=== PATIENT | female | born 1945 | race Caucasian/White ===

== ENCOUNTER 2017-12-07 10:13 | Inpatient (IN) | payer MEDICARE ==
--- OUTSIDE RECORDS SUMMARY | 2017-12-07 10:15 | XMS REPORT ---
:1945 [facility] Address [address] [place] [address] Care Team Providers Name Role Phone DR JAMES DOUGLAS Unavailable Unavailable Problems This patient has no known problems. Allergies, Adverse Reactions, Alerts This patient has no known allergies or adverse reactions. Medications This patient has no known medications. Encounters Start End Encounter Admission Attending Care Care Encounter Date/Time Date/Time Type Type Clinicians Facility Department ID 2017-12-01 2017-12-01 Emergency E [facility] [id number] 15:37:00 17:48:00 JAMES Results Test Description Test Time Test Comments Text Results Atomic Results Result Comments CT ABDOMEN AND PELVIS 2017-12-01 17:07:47 CT abdomen and pelvis without W/O CONTRAST contrastLocation Code: [id number] HISTORY: R10.2: PELVIC AND PERINEAL PAINCOMPARISON: NoneTechnique: Helical CT of the abdomen and pelvis was performed without contrast.Thin section axial, sagittal and coronal images were obtained. Automaticexposure control was utilized. Total DLP: 778 mGycmFINDINGS:The lung bases are clear. The liver, gallbladder, adrenal glands, kidneys, pancreas, and spleen areunremarkable.Surgical anastomosis is noted at the gastroesophageal junction. There is mildthickening of multiple loops of mid small bowel with mild adjacent mesentericinflammation. There is no fluid collection or free air. There is no boweldilatation. Surgical anastomosis is noted within the proximal small bowelwithin the left upper quadrant. There is no free peritoneal air or fluid. Mild calcified atherosclerotic plaque is scattered throughout the abdominalaorta without aneurysm. There is no retroperitoneal mass or fluid collection.The urinary bladder is unremarkable. There is no pelvic mass or fluidcollection. Uterus is absent.Degenerative changes are noted throughout the spine. The skin and strandingsoft tissues are unremarkable.IMPRESSION: Mild apparent thickening and inflammation of multiple loops of mid small bowelsuggesting enteritis. There is mild adjacent mesenteric inflammation withoutfluid collection or free air. PRO TIME AND PTT 2017-12-01 16:59:00 Test Item Value Reference Range Comments PT (test code=TT) 10.9 s 9.8-13.6 INR (test code=INR) 1.0 INRH (test code=INRH) SUGGESTED THERAPEUTIC RANGE FOR INR: 2.5 - 3.5 For Patients with Prosthetic Valves or Patients with recurrent Thromboembolic Events 2.0 - 3.0 For Most Other Applications PTT (test code=PTT) 34.3 s 20.2-38.0 PTTH (test code=PTTH) To monitor the effectiveness of heparin, we offer the Anti-Xa (Heparin Assay). It can be used for either unfractionated or LMW Heparin. Order Code is ANTI-XA COMPREHENSIVE METABOLIC [id number] 16:59:00 Test Item Value Reference Range Comments GLUCOSE (test code=06D) 100 mg/dL 75-100 SODIUM (test code=01A) 140 mmol/L 136-145 POTASSIUM (test code=01B) 4.3 mmol/L 3.6-5.1 CHLORIDE (test code=04A) 105 mmol/L 98-107 CO2 (test code=02A) 31 mmol/L 22-32 ANION GAP (test code=ANG) 8.3 mmol/L BUN (test code=05D) 21 mg/dL 7-18 CREATININE (test code=03E) 0.7 mg/dL 0.4-1.1 BUN/CREA (test code=BCR) 30 12-20 CALCIUM (test code=09D) 8.7 mg/dL 8.3-9.5 BILI TOTAL (test code=11A) 0.3 mg/dL 0.2-1.0 PROTEIN (test code=07D) 6.4 g/dL 6.4-8.2 ALBUMIN (test code=08D) 3.4 g/dL 3.5-4.8 GLOBULIN (test code=GLB) 3.0 g/dL 1.5-3.8 ALB/GLOB (test code=AGRR) 1.1 1.0-2.6 ALK PHOS (test code=35A) 112 IU/L 42-121 AST (test code=30A) 34 IU/L <=42 ALT (test code=31A) 31 IU/L <=78 XR FEMUR LEFT AP & [id number] 16:58:20Left femur, 4 viewsLocation Code: [id number] history: R10.2: PELVIC AND PERINEAL PAINComment: AP andlateral views of the left femur demonstrate no displacedfracture or malalignment. Left total knee arthroplasty is intact. The softtissues are unremarkable.Impression: No acute radiographic abnormality.[id number] 16:46:00 Test Item Value Reference Range Comments COLOR (test code=COLU) YELLOW YELLOW CLARITY (test code=CLA) CLEAR CLEAR GLUCOSE UR (test code=UA GLUCOSE) NEGATIVE NEGATIVE BILI UR (test code=BILE) NEGATIVE NEGATIVE KETONES UR (test code=OLIMPIA) NEGATIVE NEGATIVE SP GRAVITY (test code=SPGR) 1.009 1.005-1.030 PH UR (test code=PH) 6.5 4.5-8.0 PROTEIN UR (test code=PU) NEGATIVE NEGATIVE UROBIL UR (test code=UROQ) 0.2 EU/dL 0.2-1.0 NITRITE UR (test code=NITRITE) NEGATIVE NEGATIVE BLOOD UR (test code=UA BLOOD) NEGATIVE NEGATIVE LEUK ES UR (test code=LEUK) NEGATIVE NEGATIVE CBC (INCLUDES AUTOMATED DIFFERENTIAL)2017-12-01 16:44:00 Test Item Value Reference Range Comments WBC (test code=WBC) 8.6 10\S\3/uL 4.5-11.0 RBC (test code=RBC) 4.05 10\S\6/uL 3.80-5.80 HGB (test code=HBG) 12.6 g/dL 12.0-15.5 HCT (test code=HCT) 38.9 % 35.0-44.0 MCV (test code=MCV) 96.0 fL 81.0-99.0 MCH (test code=MCH) 31.1 pg 27.0-31.0 MCHC (test code=MCHC) 32.4 g/dL 32.0-36.0 RDW (test code=RDW) 13.1 % 11.5-14.5 PLT (test code=PLT) 167 10\S\3/uL 130-400 MPV (test code=MPV) 12.0 fL 9.4-12.4 NEUTROP # (test code=NE#) 5.9 10\S\3/uL 1.6-8.0 LYMPH # (test code=LY#) 1.9 10\S\3/uL 1.1-3.5 MONOCYTE # (test code=MO#) 0.7 10\S\3/uL 0.0-1.1 EOSINOPH # (test code=EO#) 0.1 10\S\3/uL 0.0-0.7 BASOPHIL # (test code=BA#) 0.0 10\S\3/uL 0.0-0.3 IG # (test code=IG#) 0.06 10\S\3/uL 0.00-0.06 NRBC # (test code=NRBC#) 0.00 10\S\3/uL 0.00-0.01 NEUTROPH % (test code=NE%) 68.1 % 35.0-73.0 LYMPH % (test code=LY%) 21.9 % 20.0-55.0 MONO % (test code=MO%) 7.6 % 2.5-10.0 EOSINOPH % (test code=EO%) 1.2 % 0.0-5.0 BASOPHIL % (test code=BA%) 0.5 % 0.0-2.0 IG % (test code=IG%) 0.7 % 0.0-0.8 NRBC% (test code=NRBC%) 0.0 % 0.0-0.2 MANDIFF (test code=MDIFF) NO NO RBC MORPH (test code=RBCMOR) NORMAL
--- NOTE | 2017-12-07 11:44 | RAD REPORT ---
EXAM DESCRIPTION: RAD - Hip Left 2 View - 12/07/2017 11:29 am CLINICAL HISTORY: Fall, left hip pain COMPARISON: None. FINDINGS: Lucency is seen in the intratrochanteric fracture of the left hip. No dislocation is seen. No aggressive marrow pattern. IMPRESSION: Nondisplaced left IT fracture.
--- NOTE | 2017-12-07 11:57 | RAD REPORT ---
EXAM DESCRIPTION: RAD - Pelvis - 12/07/2017 11:49 am CLINICAL HISTORY: Fall, left hip pain COMPARISON: None. FINDINGS: AP pelvis and left femur, multiple projections. Lucency is seen in the intratrochanteric region of proximal left femur, compatible with nondisplaced fracture. Left total knee arthroplasty is seen. No aggressive marrow lesion. No knee joint effusion. IMPRESSION: Left proximal femur IT fracture.
--- NOTE | 2017-12-07 12:21 | RAD REPORT ---
EXAM DESCRIPTION: RAD - Lumbar Spine 3 Views - 12/07/2017 11:49 am CLINICAL HISTORY: Back pain FINDINGS: The alignment of the lumbar spine is satisfactory. A mild compression fracture involves the L3 vertebral body. This has developed since 2011. If the pat ient has clinical symptoms to suggest this is acute then MRI would be recommended. The bones are osteoporotic. Mild spondylosis is present.
[2017-12-07] MEDS ORDERED: FENTANYL CITR 100 MCG/2 ML ONE (12:27)
[2017-12-07] MEDS ORDERED: ONDANSETRON 4 MG/2 ML VIAL ONE (12:27)
--- NOTE | 2017-12-07 12:42 | EDPHYS ---
Physician Documentation [facility] Name: Germaine Amador Age: 72 yrs Sex: Female : 1945 Arrival Date: 12/07/2017 Time: 10:17 Bed 15 Private MD: Brandon Rubalcava C ED Physician Marquise Chung HPI: 12/07 10:43 This 72 yrs old Female presents to ER via Ambulatory with complaints of Fall cp Injury. 10:43 Details of fall: The patient fell from an upright position, while walking. Onset: The cp symptoms/episode began/occurred 6 day(s) ago. Associated injuries: The patient sustained low back and left hip. 10:43 Patient reports she was seen at [facility] after fall and had xrays done cp that were negative for fracture. Historical: - Allergies: 10:26 Aminophylline; hj 10:26 Cipro IV; hj 10:26 Iodinated Contrast Media - IV Dye; hj 10:26 Vicodin; hj 10:26 Warfarin; hj - Home Meds: 10:26 escitalopram oxalate 5 mg Oral tab 1 tab once daily [Active]; Estroven 155 mg Oral cap hj daily [Active]; gabapentin 300 mg Oral cap 1 cap daily [Active]; hydroxyzine HCl 20mg Oral tab 2 tabs 4 times per day [Active]; levothyroxine 25 mcg tab 1 tab once daily [Active]; niacin 500 mg Oral cpER 1 caps once daily [Active]; Pepcid Oral [Active]; tramadol 50 mg Oral tab 1 tab BID PRN [Active]; Xarelto 20 mg Oral tab 1 tab once daily [Active]; - PMHx: 10:26 Alcoholism; Chronic pain; EDEMA; Hypertension; Rheumatoid Arthritis; Sleep Apnea; hj - PSHx: 10:26 Cholecystectomy; Knee surgery; Gastric Bypass; corneal transplant x5; hj - Immunization history:: Adult Immunizations up to date. - Social history:: Smoking status: Patient/guardian denies using tobacco, Patient/guardian denies using alcohol. ROS: 10:50 Constitutional: Negative for body aches, chills, fever, poor PO intake. cp 10:50 Eyes: Negative for injury, pain, redness, and discharge. cp Exam: 11:00 Constitutional: The patient appears in no acute distress, alert, awake, cp non-diaphoretic, non-toxic, well developed, well nourished. 11:00 Head/Face: Normocephalic, atraumatic. cp 11:00 Eyes: Periorbital structures: appear normal, Pupils: equal, round, and reactive to light and accomodation, Extraocular movements: intact throughout, Conjunctiva: normal, no exudate, no injection, Sclera: no appreciated abnormality, Lids and lashes: appear normal, bilaterally. 11:00 ENT: External ear(s): are unremarkable, Ear canal(s): are normal, clear, TM's: bulging, is not appreciated, bilaterally, dullness, bilaterally, erythema, is not appreciated, bilaterally, Nose: is normal, Mouth: Lips: moist, Oral mucosa: moist, Posterior pharynx: is normal, airway is patent, no erythema, no exudate, Voice: is normal. 11:00 Neck: ROM/movement: is normal, is supple, without pain, no range of motions limitations, no nuchal rigidity. 11:00 Chest/axilla: Inspection: normal, Palpation: is normal, no crepitus, no tenderness. 11:00 Cardiovascular: Rate: normal, Rhythm: regular, Edema: is not appreciated, JVD: is not appreciated. 11:00 Respiratory: the patient does not display signs of respiratory distress, Respirations: normal, no use of accessory muscles, no retractions, no splinting, no tachypnea, labored breathing, is not present, Breath sounds: are clear throughout, no decreased breath sounds, no stridor, no wheezing. 11:00 Abdomen/GI: Inspection: abdomen appears normal, Bowel sounds: active, all quadrants, Palpation: abdomen is soft and non-tender, in all quadrants. 11:00 Back: pain, that is severe, of the lumbar area, ROM is painful, with all movement. 11:00 Musculoskeletal/extremity: Extremities: grossly normal except: noted in the left hip: decreased ROM, pain, There is no evidence of deformity, Pulses: noted to be 2+ in the right radial artery, right dorsalis pedis artery, left radial artery and left dorsalis pedis artery, Sensation intact. 11:00 Skin: cellulitis, is not appreciated, no rash present. 11:00 Neuro: Orientation: to person, place \T\ time. Mentation: is normal, Cerebellar function: is grossly normal, Motor: moves all fours, strength is normal, Sensation: no obvious gross deficits. 12:57 ECG was reviewed by the Attending Physician. Vital Signs: 10:26 BP 134 / 94; Pulse 89; Resp 18; Temp 97.2(TE); Pulse Ox 99% on R/A; Weight 68.04 kg; hj Height 5 ft. 4 in. (162.56 cm); Pain 7/10; 12:19 BP 163 / 76; Pulse 75; Resp 18; Pulse Ox 95% on R/A; wh 13:00 BP 145 / 82; Pulse 58; Resp 17; Pulse Ox 97% on R/A; wh 14:24 BP 146 / 76; Pulse 78; Resp 18; Pulse Ox 99% on R/A; wh 10:26 Body Mass Index 25.75 (68.04 kg, 162.56 cm) hj MDM: 10:31 Patient medically screened. 12:30 Data reviewed: vital signs, nurses notes, radiologic studies, plain films, and as a cp result, I will admit patient. 12:45 Physician consultation: A Gini ROJAS was called at 12:45, was contacted at 12:45, regarding admission, to the medical/surgical unit. patient's condition. 12/07 11:06 Order name: CBC with Diff; Complete Time: 14:11 cp 12/07 14:11 Interpretation: Normal except: MCV 93.9; HAL% 76.4; LYM% 14.0. cp 12/07 11:06 Order name: BMP; Complete Time: 14:11 cp 12/07 14:11 Interpretation: Normal except: GFR 89. cp 12/07 11:06 Order name: Urine Microscopic Only; Complete Time: 14:11 cp 12/07 14:11 Interpretation: Normal except: SQEPI 5-10. cp 12/07 11:06 Order name: PT-INR; Complete Time: 14:11 cp 12/07 11:06 Order name: Ptt, Activated; Complete Time: 14:11 cp / 13:09 Order name: Urine Dipstick--Ancillary (enter results) ag 12/07 10:42 Order name: XRAY Hip LEFT 2 view; Complete Time: 11:51 cp 12/07 10:42 Order name: XRAY Lumbar Spine (3 Views); Complete Time: 12:30 cp 12/07 10:42 Order name: XRAY Pelvis; Complete Time: 11:59 cp 12/07 11:06 Order name: XRAY Femur LEFT cp 12/07 15:07 Order name: Urine Dipstick-Ancillary EDMS 12/07 11:06 Order name: Urine Dipstick-Ancillary (obtain specimen); Complete Time: 13:09 cp 12/07 11:06 Order name: IV; Complete Time: 12:12 cp 12/07 12:37 Order name: EKG; Complete Time: 12:37 cp 12/07 12:37 Order name: EKG - Nurse/Tech; Complete Time: 12:52 cp 12/07 13:03 Order name: CONS Physician Consult EDMS EC:57 Rate is 76 beats/min. Rhythm is irregularly irregular. QRS interval is normal. QT cp interval is normal. No ST changes noted. Interpreted by me. Reviewed by me. Administered Medications: 12:11 Drug: Zofran 4 mg Route: IVP; Site: right antecubital; 12:52 Follow up: Response: No adverse reaction 12:11 Drug: fentaNYL (PF) 25 mcg Route: IVP; Site: right antecubital; 12:52 Follow up: Response: No adverse reaction Disposition: 16:16 Co-signature as Attending Physician, Marquise Chung MD I agree with the assessment and [facility] plan of care. Disposition: 12/07/17 12:42 Hospitalization ordered by Brandon Rubalcava for Inpatient Admission. Preliminary diagnosis are Intertrochanteric fracture of femur - Left Hip, Fracture of lumbar vertebra - Third, Unspecified atrial fibrillation. - Bed requested for Telemetry/MedSurg (Inpatient). - Status is Inpatient Admission. - Condition is Stable. - Problem is new. - Symptoms have improved. UTI on Admission? No Signatures: Dispatcher [employer] EDMS Marquise Chung MD MD cha Gallardo, Ana ag Joaquin, Henry RN Marquise Rome PA PA cp Fitzgerald, Diane RN Hossein [place] Corrections: (The following items were deleted from the chart) 12:38 12:21 Spine Lumbar Wo Con+CT.RAD.BRZ ordered. EDMS EDMS 12:38 12:21 Pelvis Wo Cont+CT.RAD.BRZ ordered. EDMS EDMS
--- NOTE | 2017-12-07 12:42 | ER ---
Nurse's Notes [facility] Name: Germaine Amador Age: 72 yrs Sex: Female : 1945 Arrival Date: 12/07/2017 Time: 10:17 Bed 15 Private MD: Brandon Rubalcava C Diagnosis: Intertrochanteric fracture of femur-Left Hip;Fracture of lumbar vertebra-Third;Unspecified atrial fibrillation Presentation: 12/07 10:22 Presenting complaint: Patient states: fell and hurt my L hip last Monday at my sons hj house in [place], went to ED and it showed negative results and last Monday, i felt a shooting pain on my L leg; reports pain is getting worse;. Transition of care: patient was not received from another setting of care. Onset of symptoms was December 07, 2017. Care prior to arrival: None. 10:22 Method Of Arrival: Ambulatory 10:22 Acuity: MELLO 4 hj Triage Assessment: 10:26 General: Appears in no apparent distress. uncomfortable, Behavior is calm, cooperative, hj appropriate for age. Pain: Complains of pain in back and left leg. Historical: - Allergies: 10:26 Aminophylline; hj 10:26 Cipro IV; hj 10:26 Iodinated Contrast Media - IV Dye; hj 10:26 Vicodin; hj 10:26 Warfarin; hj - Home Meds: 10:26 escitalopram oxalate 5 mg Oral tab 1 tab once daily [Active]; Estroven 155 mg Oral cap hj daily [Active]; gabapentin 300 mg Oral cap 1 cap daily [Active]; hydroxyzine HCl 20mg Oral tab 2 tabs 4 times per day [Active]; levothyroxine 25 mcg tab 1 tab once daily [Active]; niacin 500 mg Oral cpER 1 caps once daily [Active]; Pepcid Oral [Active]; tramadol 50 mg Oral tab 1 tab BID PRN [Active]; Xarelto 20 mg Oral tab 1 tab once daily [Active]; - PMHx: 10:26 Alcoholism; Chronic pain; EDEMA; Hypertension; Rheumatoid Arthritis; Sleep Apnea; hj - PSHx: 10:26 Cholecystectomy; Knee surgery; Gastric Bypass; corneal transplant x5; hj - Immunization history:: Adult Immunizations up to date. - Social history:: Smoking status: Patient/guardian denies using tobacco, Patient/guardian denies using alcohol. Screenin:00 Abuse screen: Denies threats or abuse. Denies injuries from another. Nutritional hj screening: No deficits noted. Tuberculosis screening: No symptoms or risk factors identified. Fall Risk None identified. Assessment: 12:17 General: Appears in no apparent distress. comfortable, Behavior is calm, cooperative, wh appropriate for age. Pain: Complains of pain in left hip Pain does not radiate. Pain began 2-3 days ago. Alleviated by repositioning. Neuro: Level of Consciousness is awake, alert, obeys commands, Oriented to person, place, time, situation, Pump House Engineer are equal bilaterally. Cardiovascular: Denies chest pain, Heart tones S1 S2 Capillary refill < 3 seconds. Respiratory: Airway is patent Respiratory effort is even, unlabored, Respiratory pattern is regular, symmetrical, Breath sounds are clear bilaterally. GI: Abdomen is flat, non-distended, Abd is soft and non tender. : No signs and/or symptoms were reported regarding the genitourinary system. EENT: No signs and/or symptoms were reported regarding the EENT system. Derm: Skin is intact, Skin is pink, warm \T\ dry. normal. Musculoskeletal: Range of motion: intact in all extremities. 12:29 Reassessment: Accepted lab phone call, recollect for all lab draws. will notify primary ae1 nurse. 13:16 Reassessment: Patient appears in no apparent distress at this time. Patient and/or wh family updated on plan of care and expected duration. Pain level reassessed. Patient is alert, oriented x 3, equal unlabored respirations, skin warm/dry/pink. 14:22 Reassessment: Patient appears in no apparent distress at this time. Patient and/or wh family updated on plan of care and expected duration. Pain level reassessed. Patient is alert, oriented x 3, equal unlabored respirations, skin warm/dry/pink. Patient states feeling better. 15:23 Reassessment: Patient appears in no apparent distress at this time. Patient and/or wh family updated on plan of care and expected duration. Pain level reassessed. Patient is alert, oriented x 3, equal unlabored respirations, skin warm/dry/pink. Patient states feeling better. Vital Signs: 10:26 BP 134 / 94; Pulse 89; Resp 18; Temp 97.2(TE); Pulse Ox 99% on R/A; Weight 68.04 kg; hj Height 5 ft. 4 in. (162.56 cm); Pain 7/10; 12:19 BP 163 / 76; Pulse 75; Resp 18; Pulse Ox 95% on R/A; wh 13:00 BP 145 / 82; Pulse 58; Resp 17; Pulse Ox 97% on R/A; wh 14:24 BP 146 / 76; Pulse 78; Resp 18; Pulse Ox 99% on R/A; wh 10:26 Body Mass Index 25.75 (68.04 kg, 162.56 cm) ED Course: 10:17 Patient arrived in ED. mr 10:17 rBandon Rubalcava MD is Private Physician. mr 10:24 Triage completed. hj 10:26 Arm band placed on right wrist. hj 10:30 [facility] Morrow [facility]. cp 10:31 Marquise Chung MD is Attending Physician. cp 10:49 Wyatt Sigala, SUSAN is Primary Nurse. hj 11:01 Patient has correct armband on for positive identification. Placed in gown. Bed in low hj position. Call light in reach. Side rails up X 1. Adult w/ patient. 11:28 XRAY Hip LEFT 2 view In Process Unspecified. EDMS 11:28 XRAY Lumbar Spine (3 Views) In Process Unspecified. EDMS 11:28 XRAY Pelvis In Process Unspecified. EDMS 11:28 XRAY Femur LEFT In Process Unspecified. EDMS 12:18 Inserted saline lock: 22 gauge in right antecubital area, using aseptic technique. Blood collected. 12:40 Brandon Rubalcava MD is Hospitalizing Provider. cp 12:57 EKG done, by scheme technician. reviewed by Marquise LEON. at1 15:23 No provider procedures requiring assistance completed. Patient admitted, IV remains in place. Administered Medications: 12:11 Drug: Zofran 4 mg Route: IVP; Site: right antecubital; 12:52 Follow up: Response: No adverse reaction 12:11 Drug: fentaNYL (PF) 25 mcg Route: IVP; Site: right antecubital; 12:52 Follow up: Response: No adverse reaction Outcome: 12:42 Decision to Hospitalize by Provider. cp 15:23 Admitted to Med/surg accompanied by nurse, family with patient, via stretcher, room wh 202, with chart, Report called to Bhavna Rosenbaum RN 15:23 Condition: good 15:23 Instructed on the need for admit. 15:24 Patient left the ED. Signatures: Dispatcher [employer] SHAWNAMS Keys Mari medina, [place], combat engineer EKG Tat1 Wyatt Sigala, RN RN hj Marquise Morrow PA PA cp Elliott, Andrea, RN RN ae1 Hossein [place] Corrections: (The following items were deleted from the chart) 10:28 10:26 Pulse 89bpm; Resp 18bpm; Pulse Ox 99% RA; Temp 97.2F Temporal; 68.04 kg; Height 5 hj ft. 4 in.; BMI: 25.7; Pain 7/10; hj
[2017-12-07] MEDS ORDERED: ONDANSETRON 4 MG/2 ML VIAL IV PRN (13:03)
[2017-12-07 13:14] LABS: Absolute Lymphocytes (CBC) 0.9 K/uL (0.7-4.9); Absolute Monocytes 0.5 K/uL (0.1-1.3); Absolute Neutrophil 5.1 K/uL (1.8-8.0); Basophils % 0.5 % (0-1.3); Eosinophils % 1.3 % (0-4.4); Hematocrit 42.8 % (36.0-45.0); MCH 30.8 pg (27.0-35.0); MCV 93.9 fL (80-100); MPV 10.5 fL (7.6-11.3); Monocytes % 7.8 % (3.3-12.3); RBC Red Blood Cell Count 4.56 M/uL (3.86-4.86)
[2017-12-07 13:16] LABS: Protime INR 1.04
--- NOTE | 2017-12-07 13:35 | RAD REPORT ---
EXAM DESCRIPTION: RAD - Femur Left - 12/07/2017 11:29 am CLINICAL HISTORY: Fall, left hip pain COMPARISON: None. FINDINGS: AP pelvis and left femur, multiple projections. Lucency is seen in the intratrochanteric region of proximal left femur, compatible with nondisplaced fracture. Left total knee arthroplasty is seen. No aggressive marrow lesion. No knee joint effusion. IMPRESSION: Left proximal femur IT fracture.
[2017-12-07 13:43] LABS: Urine Bacteria NONE SEEN /HPF (<20); Urine RBC <5 /HPF (NONE SEEN)
[2017-12-07 13:44] LABS: Urine Culture Reflex Order NOT NEEDED
[2017-12-07 13:46] LABS: Potassium 4.7 mEq/L (3.6-5.0)
[2017-12-07 15:07] LABS: Urine Blood NEGATIVE (NEG); Urine Glucose NEGATIVE (NEG); Urine Protein NEGATIVE (NEG); Urine Specific Gravity 1.025 (1.005-1.030); Urine pH 6.5 (5.0-7.0)
[2017-12-07 15:22] VITALS: BMI 25.5
--- NOTE | 2017-12-07 16:40 | EKG ---
Test Date: 2017-12-07 Test Time: 12:51:57 Bunghole Borer: LIANG MEASUREMENT RESULTS: Intervals: Rate: 76 TN: QRSD: 80 QT: 374 QTc: 420 [place]: P: TN: QRS: 33 T: 19 INTERPRETIVE STATEMENTS: Atrial fibrillation Abnormal ECG Compared to ECG 07/25/2017 12:15:44 No significant changes Electronically Signed On 12-07-17 16:39:58 CDT by Frank Alba
[2017-12-07] MEDS: ATORVASTATIN 40 MG TAB PO SCH (20:15)
[2017-12-07] MEDS: VITAMIN D 1000 UNIT TAB PO SCH (20:16)
[2017-12-07] MEDS: GABAPENTIN 300 MG CAP PO SCH (20:16)
[2017-12-07] MEDS: TRAMADOL HCL 50 MG TAB PO SCH (20:17)
[2017-12-07] MEDS ORDERED: HOME MED 1 EA UNK (Gabapentin [Gralise] 600 MG) PO SCH (21:00)
[2017-12-07] MEDS ORDERED: CHOLECALCIFEROL 1000 UNIT PO SCH (21:00)
[2017-12-07] MEDS: MORPHINE 4 MG/ML SYR IV PRN (23:06)
[2017-12-08] MEDS: MORPHINE 4 MG/ML SYR IV PRN ×2 (04:59→17:21)
[2017-12-08] MEDS: LEVOTHYROXINE SOD 0.05 MG TABLET PO SCH (05:52)
--- NOTE | 2017-12-08 06:40 | HP ---
Date of Admission: 12/07/2017 Chief Complaint: Left leg pain. History Of Present Illness: This is a 72-year-old female patient, who contacted my office on 018 with information that while she was out of town this past weekend at her son's house as she was c oming down the steps, she missed last 2 steps on the staircase and fell down. When she fell down, malou pennington fell on her left side. She was taken to local emergency room, where she was out of town and furthe r evaluation done including CAT scan of abdomen and pelvis and x-ray of the hip and blood work. She was told that there was no fracture, no acute changes. She was sent home and she called my office on 12/04/2017, as she requested x-ray of the left knee because she was complaining of pain in her left knee. Her order for knee x-ray was given which was done on 12/05/2017 and today the patient came int o office for followup with her and her knee x-ray came back negative for any acute injury. T salazar, when she came into the office, she was in the wheelchair. Upon further questioning, the patien ruiz reports that she has not been able to stand or walk ever since this fall and she is having excrucia ting pain in her left leg and she describes her pain in the area between left lateral hip and left kn ee, all over her left thigh. Pain gets worse with any movement. No fever. No chills. No nausea or vomiting. After I saw her at the office after I evaluated, I was concerned about possibility of hip fracture, so I instructed her that I would like for her to get evaluated in the emergency room and t he plan was to start with routine x-ray of lumbosacral spine, hip, and femur and if that comes back n egative, then to consider CAT scan. Details were discussed with ER provider and after further testin gs were done, I was contacted. The patient does have fracture of the left hip and she was admitted t o the hospital. Orthopedic consultation has been requested. Allergies: TO CIPRO CAUSING DIFFICULTY BREATHING AND SWELLING OF THE FACE, HYDROCODONE CAUSING HYPOT ENSION, AND IODINE CAUSING TROUBLE BREATHING AND SWALLOWING. Medications: Atorvastatin 40 mg at bedtime, Combigan eye drops 1 drop 2 times every day in both eyes ; escitalopram 10 mg takes 1-1/2 tablet p.o. daily; gabapentin, according to office chart, she is dylon ing 300 mg daily, but according to hospital record the dose is different, then we will have to verify that with her and gabapentin is not prescribed by me. Levothyroxine 25 mcg p.o. daily; Lumigan eye drops, 1 drop both eyes at bedtime; prednisolone acetate eye drops, 1 drop every day in both eyes; tr amadol 50 mg p.o. 3 times a day as needed for pain; vitamin B12 1000 mcg p.o. daily; vitamin D3 1000 mcg p.o. daily. Review of Systems: Musculoskeletal: As mentioned above. All other systems reviewed and negative. Past Medical History: Significant for hypothyroidism, impaired fasting glucose, coronary artery dise ase, hyperlipidemia, paroxysmal atrial fibrillation, depression, hypertension. The patient had a car diac cath done on 07/21/2017, showed normal coronaries, except 20% plaquing of left main. The patien t was on Xarelto which she had reported was discontinued by subway train operator when I saw her in October this year. Past Surgical History: Significant for cornea transplant, gastric bypass surgery in 2013, cystocele/ rectocele repair, knee replacement, rotator cuff repair, surgery on her spine due to injury, hernia r epair, cholecystectomy, hysterectomy. Family History: Significant for coronary artery disease, hypertension, congestive heart failure, berlin betes mellitus. Social History: Negative for smoking or alcohol use. Physical Examination: Vital Signs: Height 5 feet 4 inches, weight 149 pounds. Temperature 97.2, pulse 89, respiratory rat e 18, blood pressure 139/94. General: Awake, alert, oriented, not in distress. HEENT: Head atraumatic, normocephalic. Conjunctivae nonerythematous. Sclerae white. Mouth, no thr ush or edema noted. Ears/Nose, no mass, lesion, discharge noted. Neck: Supple. No JVD, lymph nodes, bruit, thyromegaly noted. Lungs: Bilateral good equal air entry. Clear to auscultation. No rhonchi. No rales. Heart: Normal heart sounds, no murmur or gallop. Abdomen: Soft, bowel sounds normal. No guarding, rigidity, tenderness, mass, hepatosplenomegaly, di stention, or bruit noted. Extremities: No leg edema. No calf tenderness. Skin: No rash, ulcer, cellulitis. Lymphatics: No lymph node enlargement in neck, supraclavicular, infraclavicular region. Neuro: No focal neurological deficit. Chest: Unremarkable. External Genitalia: Deferred. Rectal: Deferred. Laboratory Data: White count 6.7, hemoglobin 14, platelets 215. PT, PTT normal. Sodium 136, potass ium 4.7, chloride 101, bicarb 31, BUN 18, creatinine 0.65, glucose 117. Urinalysis unremarkable. Hip x-ray shows known displaced left intertrochanteric fracture. Lumbar spine x-ray shows mild compr ession fracture involving L3, this is new since 2011. Femur and pelvis x-ray shows fracture of the l eft proximal femur intertrochanteric region. Electrocardiogram shows atrial fibrillation. Impression: 1.Left hip intertrochanteric fracture. 2.Atrial fibrillation. 3.Coronary artery disease. 4.Hypertension. 5.Hyperlipidemia. 6.Impaired fasting glucose. 7.Depression. 8.Osteoarthritis, multiple sites. 9.Hypothyroidism. Plan: Admit the patient to hospital for further evaluation and management of this problem. The shmuel ent is appropriate for inpatient and is expected to spend 2 midnights in the hospital. SCD will be o rdered for DVT prophylaxis. The patient is at acceptable risk from the planned surgery for the hip f racture. Consult orthopedic surgeon. Home medications will be continued per order. We will consult Cardiology for the patient's atrial fibrillation management and I will see her tomorrow for followup . The patient will be kept n.p.o. after midnight, so she can have hip surgery tomorrow. RYAN/MODL Voice ID: [id number]
[2017-12-08] MEDS ORDERED: D5 0.9 NS 1,000 ML IV SCH (07:00)
[2017-12-08] MEDS: TRAMADOL HCL 50 MG TAB PO SCH ×3 (09:00→20:54)
[2017-12-08] MEDS ORDERED: HOME MED 1 EA UNK (Brimonidine Tartrate/Timolol [Combigan 0.2%-0.5% Eye Drops] 1 DROP) OP SCH (09:00)
[2017-12-08] MEDS: VITAMIN D 1000 UNIT TAB PO SCH ×2 (09:00→20:54)
[2017-12-08] MEDS ORDERED: PREDNISOLONE ACETATE 1% OP SCH (09:00)
[2017-12-08] MEDS: GABAPENTIN 300 MG CAP PO SCH ×3 (09:00→20:55)
[2017-12-08] MEDS ORDERED: BIMATOPROST 0.01% OP SCH (09:00)
[2017-12-08] MEDS: CYANOCOBALAMIN 1,000 MCG TAB PO SCH (09:00)
--- NOTE | 2017-12-08 12:43 | CON ---
History Of Present Illness: Ms. Amador fell, she has a left intertrochanteric fracture of her hip. S urgery is scheduled and I am asked to evaluate her suitability for going through general anesthesia a nd a surgical procedure. Ms. Amador has chronic atrial fibrillation, hypertension, dyslipidemia. Her atrial fibrillation was well controlled with heart rate. She is in chronic atrial fibrillation and she was on Xarelto. Xarelto was stopped at one point and we are not really sure exactly why it was n ever restarted it. She had a cardiac cath about 4 months ago that showed minimal CAD. No significan t stenosis. She had an echocardiogram that shows normal ejection fraction and her EKG from yesterday shows atrial fibrillation. Heart rate is 76. There was no other abnormality. Medications: Outpatient medications have been Lumigan eye drops, prednisolone eye drops, levothyroxi ne, Lipitor, tramadol, gabapentin, brimonidine eye drops, and prednisone. Physical Examination: General: 5 feet 4 inches, 149 pounds. Alert, oriented, pleasant, not in distress. Lungs: Clear. Heart: Irregularly irregular. No significant murmur or rub. Abdomen: Soft. Extremities: Normal pulses. Impression: The patient is low risk for going through surgery in the postop. As soon as the bleedin g risk is low, I would recommend we initiate or resume therapy with Xarelto 20 mg once per day to red uce her risk of stroke. Thank you very much for your kind referral of Ms. Amador. I will follow her with you. GIRISH Voice ID: [id number] Report ID: [id number]
[2017-12-08] MEDS ORDERED: PROPOFOL 200 MG/20 ML VIAL IV ONE (13:15)
[2017-12-08] MEDS ORDERED: FENTANYL CITR 100 MCG/2 ML ONE (13:16)
[2017-12-08] MEDS ORDERED: LIDOCAINE 2% MPF 5 ML VIAL ONE (13:16)
[2017-12-08] MEDS ORDERED: ROCURONIUM 50 MG/5 ML VIAL IV ONE (13:16)
[2017-12-08] MEDS ORDERED: ONDANSETRON 4 MG/2 ML VIAL ONE (13:16)
[2017-12-08] MEDS ORDERED: Ringers Lactate 1,000 ML IV ONE ×2 (13:44→15:30)
[2017-12-08] MEDS ORDERED: CEFAZOLIN/SWI 1gm 1 GM/10 ML SYR ONE (13:59)
[2017-12-08] MEDS ORDERED: GLYCOPYRROLATE 0.2 MG/ML SYR ONE (14:44)
[2017-12-08] MEDS ORDERED: NEOSTIGMINE 1 MG/ML -5 ML SYRINGE ONE (14:54)
[2017-12-08] MEDS ORDERED: MORPHINE 10 MG/ML VIAL ONE (14:54)
[2017-12-08] MEDS: MEPERIDINE HCL 50 MG/ML AMP ONE ×2 (15:12→15:18)
[2017-12-08] MEDS ORDERED: HYDROCODONE/APAP 5/325 MG TAB PO PRN (15:24)
[2017-12-08] MEDS ORDERED: MORPHINE/NS PCA 50 MG/50 ML PCA.SYRING IV PRN (15:28)
[2017-12-08] MEDS ORDERED: MEPERIDINE HCL 50 MG/ML AMP ONE (15:44)
--- NOTE | 2017-12-08 15:46 | RAD REPORT ---
EXAM DESCRIPTION: RAD - Pelvis - 12/08/2017 3:26 pm CLINICAL HISTORY: Left femoral fracture FINDINGS: Compression screw and intramedullary coral affix a left femoral fracture in good alignment
--- NOTE | 2017-12-08 15:50 | RAD REPORT ---
EXAM DESCRIPTION: RAD - Hip In Or - 12/08/2017 3:14 pm CLINICAL HISTORY: Left hip fracture. FINDINGS: Multiple fluoroscopic spot images are submitted. They demonstrate a compression screw and intramedullary coral affixing a left femoral fracture in good alignment. The examination was performed by Dr. Chang.
[2017-12-08] MEDS ORDERED: NACHLORIDE 0.45% 1,000 ML IV ONE (15:55)
[2017-12-08] MEDS: NACHLORIDE 0.45% 1,000 ML IV SCH (16:00)
[2017-12-08] MEDS: CEFAZOLIN/SWI 1gm 1 GM/10 ML SYR IV SCH (17:21)
[2017-12-08] MEDS: DOCUSATE NA 100 MG CAP PO SCH (20:54)
[2017-12-08] MEDS: ATORVASTATIN 40 MG TAB PO SCH (20:54)
--- NOTE | 2017-12-08 23:04 | PN ---
Date of Progress Note: 12/08/2017 Subjective: The patient was seen this morning for followup. No new complaints or problems reported. She was lying in bed, not in distress. No chest pain, shortness of breath overnight. Objective: Vital Signs: Reviewed. HEENT: Unremarkable Lungs: Clear to auscultation. No rhonchi or rales. Heart: Sounds normal. Abdomen: Soft, bowel sounds normal. No guarding, rigidity, tenderness, or distention. Extremities: No leg edema. Impression: 1.Left hip intertrochanteric fracture. 2.Atrial fibrillation. 3.Coronary artery disease. 4.Hypertension. 5.Osteoarthritis, multiple sites. Plan: We will go ahead and request consultation from nuclear engineer. The patient is at low and accept able risk from planned hip fracture surgery, which will be done today and we will continue to follow up with nuclear engineer regarding atrial fibrillation management as well. After the surgery, we will st art her on anticoagulation therapy and with Xarelto, which will address both DVT prophylaxis as well as in view of her atrial fibrillation problem. Details were discussed with her and I will see her to constance for followup. We will get some blood work done tomorrow including vitamin B12, folic acid lev el, vitamin D level considering she is a gastric bypass surgery patient. RYAN/MODL Voice ID: [id number] Report ID: [id number]
[2017-12-09] MEDS: CEFAZOLIN/SWI 1gm 1 GM/10 ML SYR IV SCH (00:20)
[2017-12-09] MEDS: HYDROCODONE/APAP 5/325 MG TAB PO PRN ×2 (00:24→07:00)
--- NOTE | 2017-12-09 00:40 | OP ---
Surgeon: Noah Chang MD Preoperative Diagnosis: Left intertrochanteric hip fracture, nondisplaced. Postoperative Diagnosis: Left intertrochanteric hip fracture, nondisplaced. Procedure Performed: Intramedullary rodding, left intertrochanteric hip fracture. Tree Driller: Carson Calvo PA-C. Complications: None. Disposition: Recovery room, stable. Operative Report In Detail: The patient was taken to the operative suite, placed in a supine positio n, induced anesthesia. Left hip was prepped and draped in usual sterile fashion supine on fracture t able. Entry portal was created at tip of the greater trochanter. Guidewire was passed. Single-stag e reaming on 9 x 125 nail was then passed and secured with an 85-mm lag screw distal interlocking wit h 36-mm screw. The patient tolerated the procedure well. Layered closure was performed. The patien t is being reversed of anesthesia at the time of this dictation. TACHO Voice ID: [id number] Report ID: [id number]
[2017-12-09] MEDS: MORPHINE 4 MG/ML SYR IV PRN (03:16)
[2017-12-09] MEDS: NACHLORIDE 0.45% 1,000 ML IV SCH (03:22)
[2017-12-09 05:05] LABS: Absolute Lymphocytes (CBC) 1.4 K/uL (0.7-4.9); Absolute Monocytes 0.9 K/uL (0.1-1.3); Absolute Neutrophil 5.5 K/uL (1.8-8.0); Basophils % 0.4 % (0-1.3); Hematocrit 37.8 % (36.0-45.0); Lymphocytes % 17.1 % (15.3-44.8); MCH 30.9 pg (27.0-35.0); MCV 93.9 fL (80-100); MPV 10.5 fL (7.6-11.3); Monocytes % 10.9 % (3.3-12.3); RBC Red Blood Cell Count 4.02 M/uL (3.86-4.86)
[2017-12-09] MEDS: LEVOTHYROXINE SOD 0.05 MG TABLET PO SCH (05:33)
[2017-12-09 05:47] LABS: ALT/SGPT 74 IU/L (10-60); AST/SGOT 115 IU/L (10-42); Alkaline Phosphatase 365 IU/L (42-121); BUN Blood Urea Nitrogen 15 mg/dL (6-20); Bicarbonate 32 mEq/L (21-31); Bilirubin Total 0.5 mg/dL (0.3-1.2); Folic Acid, (Folate) 21.4 ng/ml (>5.21); Glucose Level 128 mg/dL (65-120); HDL Cholesterol 34 mg/dL (29-89); LDL Cholesterol, Calculated 54 (<130); Magnesium 1.6 mg/dL (1.8-2.5); Potassium 5.2 mEq/L (3.6-5.0); Protein, Total 5.1 g/dL (6.0-8.3); Sodium Level 140 mEq/L (135-145)
[2017-12-09] MEDS: VITAMIN D 1000 UNIT TAB PO SCH ×2 (08:54→21:34)
[2017-12-09] MEDS: GABAPENTIN 300 MG CAP PO SCH ×3 (08:54→21:35)
[2017-12-09] MEDS: TRAMADOL HCL 50 MG TAB PO SCH ×3 (08:54→21:34)
[2017-12-09] MEDS: DOCUSATE NA 100 MG CAP PO SCH ×2 (08:54→21:34)
[2017-12-09] MEDS: CYANOCOBALAMIN 1,000 MCG TAB PO SCH (08:54)
--- NOTE | 2017-12-09 08:57 | P.PN ---
Subjective Date of Service: 12/09/17 Subjective: No C/O voiced, Tolerating diet, Improving (labs okay today ding welll) Physical Examination - Vital Signs Temperature: 97.8 F Blood Pressure: 127/64 Pulse: 88 Respirations: 18 Pulse Ox (%): 99
[2017-12-09] MEDS ORDERED: ENOXAPARIN 30 MG/0.3 ML SQ SCH (10:00)
[2017-12-09] MEDS ORDERED: MAGNESIUM HYDROXIDE 8% 30 ML PO PRN (10:15)
--- NOTE | 2017-12-09 15:34 | PN ---
Date of Progress Note: 12/09/2017 Subjective: The patient was seen this morning for followup. No new complaints, problems reported by patient. Lying in bed, not in distress. She really denies any pain in her left thigh and left hip area. Has not had a bowel movement since Monday but upon further questioning, she reports that at ho sd she has bowel movement maybe every 2-3 days. Denies any abdominal pain. No chest pain, shortness of breath. Objective: Vital Signs: Reviewed. HEENT: Unremarkable. Lungs: Clear to auscultation. Heart: Sounds normal. Abdomen: Soft, bowel sounds normal. No guarding, rigidity, tenderness, or distention. Extremities: No leg edema. Laboratory Data: Her white count is 7.9, hemoglobin 12.4, and platelet count 219. Sodium 140, potas sium 5.2, chloride 103, bicarb 32, BUN 15, creatinine 0.64, glucose 128, magnesium 1.6., SGOT 115, SG PT 74, alkaline phosphatase 365, total bilirubin 0.5. Vitamin B12 732, folic acid 21.4, vitamin D le francesco pending. Total cholesterol 105, LDL 54, HDL 34, triglycerides 83. Impression: 1.Left hip intertrochanteric fracture. 2.Hyperkalemia. 3.Abnormal liver function test. 4.Atrial fibrillation, chronic. 5.Coronary artery disease. 6.Hypomagnesemia. Plan: We will go ahead and replace magnesium per protocol. Discontinue IV fluid. Remove Thomas cath eter. If okay with Dr. 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 order for morphine. The patient has allergy listed as she is allergic to hydrocodone and I see nadia t Dr. Chang has ordered hydrocodone. We will discontinue that and she is on tramadol. We will co ntinue that also. We will give Senokot for constipation problem. Hyperkalemia, we will just monitor with another blood work tomorrow. No need for intervention at this point. Discontinue IV fluid. P hysical Therapy to work with the patient. We will request consultation for inpatient rehab. We will hold her atorvastatin until Monday evening. We will repeat another liver enzymes on Monday. Start Senokot-S 2 tablets at bedtime and Xarelto 20 mg daily starting this evening will be started and we w ill discontinue Lovenox. Details and plan of treatment discussed with the patient. RYAN/YEISON Voice ID: [id number] Report ID: [id number]
[2017-12-09] MEDS: RIVAROXABAN 20 MG TABLET PO SCH (16:35)
[2017-12-09] MEDS ORDERED: MAGNESIUM SULFATE 1 gm IVPB 1 GM/100 ML BAG IV ONE (20:45)
[2017-12-09] MEDS: DOCUSATE NA/SENNA CONC 1 TAB PO SCH (21:34)
[2017-12-10 05:05] LABS: BUN Blood Urea Nitrogen 10 mg/dL (6-20); Bicarbonate 31 mEq/L (21-31); Glucose Level 123 mg/dL (65-120); Magnesium 1.9 mg/dL (1.8-2.5); Potassium 4.1 mEq/L (3.6-5.0); Sodium Level 137 mEq/L (135-145)
[2017-12-10] MEDS: LEVOTHYROXINE SOD 0.05 MG TABLET PO SCH (05:31)
[2017-12-10] MEDS: GABAPENTIN 300 MG CAP PO SCH ×3 (09:01→21:40)
[2017-12-10] MEDS: DOCUSATE NA 100 MG CAP PO SCH ×2 (09:01→21:40)
[2017-12-10] MEDS: TRAMADOL HCL 50 MG TAB PO SCH ×3 (09:02→21:41)
[2017-12-10] MEDS: VITAMIN D 1000 UNIT TAB PO SCH ×2 (09:02→21:40)
[2017-12-10] MEDS: CYANOCOBALAMIN 1,000 MCG TAB PO SCH (09:02)
--- NOTE | 2017-12-10 16:39 | PN ---
Date of Progress Note: 12/10/2017 Subjective: Patient was seen this morning for followup. No new complaints or problems reported by t darlene patient. Lying in bed. Not in distress. Her was present with her at bedside. She has n ot had a bowel movement yet since she has been in the hospital but denies any abdominal discomfort. Objective: Vital Signs: Reviewed. HEENT: Unremarkable. Lungs: Clear to auscultation. Heart: Sounds normal. Abdomen: Soft, bowel sounds normal. No guarding, rigidity, tenderness, or distention. Extremities: No leg edema. Laboratory Data: Sodium 137, potassium 4.1, chloride 99, bicarb 31, BUN 10, creatinine 0.54, glucose 123, magnesium 1.9. Impression: 1.Left hip intertrochanteric fracture, status post surgery. 2.Chronic atrial fibrillation. 3.Coronary artery disease. 4.Chronic constipation. Plan: We will go ahead and continue Xarelto 20 mg daily, which was started yesterday. Continue curr ent pain medication, which is p.r.n. morphine and tramadol per order. We will continue Senokot-S 2 t ablets at bedtime, which was started yesterday. The patient also has p.r.n. order for milk of magnes ia. Physical therapy to continue to work with the patient and we will go ahead and wait for rehab co nsultation and for some reason, if the patient cannot go to inpatient rehab then other option will be to go to prison facility for physical therapy and rehab but patient refuses that and says she will rather go home with home health and home PT. So, we will look into that. RYAN/MODL Voice ID: [id number] Report ID: [id number]
[2017-12-10] MEDS: RIVAROXABAN 20 MG TABLET PO SCH (16:45)
[2017-12-10] MEDS: DOCUSATE NA/SENNA CONC 1 TAB PO SCH (21:41)
[2017-12-11] MEDS: LEVOTHYROXINE SOD 0.05 MG TABLET PO SCH (06:12)
[2017-12-11] MEDS: VITAMIN D 5,000 UNIT CAP PO SCH (08:59)
[2017-12-11] MEDS: CYANOCOBALAMIN 1,000 MCG TAB PO SCH (08:59)
[2017-12-11] MEDS: TRAMADOL HCL 50 MG TAB PO SCH ×3 (09:00→20:37)
[2017-12-11] MEDS: DOCUSATE NA 100 MG CAP PO SCH ×2 (09:00→20:43)
[2017-12-11] MEDS: GABAPENTIN 300 MG CAP PO SCH ×3 (09:00→20:37)
[2017-12-11] MEDS: RIVAROXABAN 20 MG TABLET PO SCH (17:32)
[2017-12-11] MEDS: DOCUSATE NA/SENNA CONC 1 TAB PO SCH (20:43)
[2017-12-11] MEDS: ATORVASTATIN 40 MG TAB PO SCH (20:46)
[2017-12-12] MEDS: MORPHINE 4 MG/ML SYR IV PRN (00:43)
--- NOTE | 2017-12-12 00:46 | PN ---
Date of Progress Note: 12/11/2017 Subjective: The patient was seen this morning for followup. No new complaints or problems reported by her. No pain. No nausea, no vomiting. She had a bowel movement last night. Objective: Vital Signs: Reviewed. HEENT: Unremarkable. Lungs: Clear to auscultation. Heart: Sounds normal. Abdomen: Soft, bowel sounds normal. No guarding, rigidity, tenderness, or distention. Extremities: No leg edema. Impression: 1.Left hip intertrochanteric fracture. 2.Atrial fibrillation. 3.Coronary artery disease. Plan: We will continue current Xarelto. Continue current pain medications. The patient's w as present with her at bedside and we did talk about discharge planning. I gave my recommendation th at it will be best if she can go to inpatient rehab for therapy and then she can go home with home he alth or outpatient physical therapy whatever her preference maybe and when I talked to her, the patie nt and her they both were agreeable with that plan. Later on, nurse called and informed me t hat the patient wanted to go home and they wanted to go home today with home health and this is total ly opposite to what we had discussed and what she was thinking about this morning, so I asked the [facility] staff to go ahead and make sure to talk to her and the patient and her need to d ecide what exactly they want because it appears that they keep on changing their mind and when I talk ed to them this morning, they were willing to go to inpatient rehab if insurance approves. If for so me reason insurance refuses, then as a second option, she had shown desire to go to detention f acility for 20 to 21 days, which will be approved by her insurance and then go home and what nurse wa s telling me was totally different than what we had discussed this morning, so per my instruction [facility] staff did talk to patient and her and I was notified that now the patient wants to go to inpatient rehab, so we are back to square one with discharge planning and waiting for inpatient reha b evaluation and if insurance approves that, the patient will go. I will see her tomorrow for follow up. Constipation is well controlled. RYAN/MODL Voice ID: [id number] Report ID: [id number]
[2017-12-12] MEDS: LEVOTHYROXINE SOD 0.05 MG TABLET PO SCH (05:32)
[2017-12-12] MEDS: GABAPENTIN 300 MG CAP PO SCH ×3 (11:00→20:40)
[2017-12-12] MEDS: CYANOCOBALAMIN 1,000 MCG TAB PO SCH (11:00)
[2017-12-12] MEDS: TRAMADOL HCL 50 MG TAB PO SCH ×3 (11:00→20:41)
[2017-12-12] MEDS: VITAMIN D 5,000 UNIT CAP PO SCH (11:00)
[2017-12-12] MEDS: DOCUSATE NA 100 MG CAP PO SCH ×2 (11:00→20:42)
[2017-12-12] MEDS: RIVAROXABAN 20 MG TABLET PO SCH (17:36)
[2017-12-12] MEDS: ATORVASTATIN 40 MG TAB PO SCH (20:41)
[2017-12-12] MEDS: DOCUSATE NA/SENNA CONC 1 TAB PO SCH (20:42)
--- NOTE | 2017-12-13 00:35 | PN ---
Date of Progress Note: 12/12/2017 Subjective: The patient was seen this morning for followup. Her was with her at bedside. D enies any abdominal pain. No constipation problem as current stool softener has resolved that proble m. Objective: Vital Signs: Reviewed. HEENT: Unremarkable. Lungs: Clear to auscultation. Heart: Sounds normal. Abdomen: Soft, bowel sounds normal. No guarding, rigidity, tenderness, or distention. Extremities: No leg edema. Impression: 1.Left hip intertrochanteric fracture. 2.Coronary artery disease. 3.Chronic constipation. Plan: We will continue current medications. Continue current pain medication. DVT prophylaxis and chronic anticoagulation therapy with Xarelto for atrial fibrillation problem. Physical Therapy to co ntinlorena to work with the patient. We are waiting on patient's insurance company to approve inpatient rehab stay and patient informed me that for some reason if insurance company does not approve inpatie nt rehab stay, then she wants to go home with home health and home physical therapy. This is what malou pennington told me this morning in presence of her . RYAN/MODL Voice ID: [id number] Report ID: [id number]
[2017-12-13] MEDS: LEVOTHYROXINE SOD 0.05 MG TABLET PO SCH (05:33)
[2017-12-13] MEDS: CYANOCOBALAMIN 1,000 MCG TAB PO SCH (08:37)
[2017-12-13] MEDS: TRAMADOL HCL 50 MG TAB PO SCH ×3 (08:37→21:10)
[2017-12-13] MEDS: DOCUSATE NA 100 MG CAP PO SCH ×2 (08:37→21:09)
[2017-12-13] MEDS: GABAPENTIN 300 MG CAP PO SCH ×3 (08:37→21:09)
[2017-12-13] MEDS: VITAMIN D 5,000 UNIT CAP PO SCH (08:37)
[2017-12-13] MEDS: RIVAROXABAN 20 MG TABLET PO SCH (16:12)
[2017-12-13] MEDS: DOCUSATE NA/SENNA CONC 1 TAB PO SCH (21:09)
[2017-12-13] MEDS: ATORVASTATIN 40 MG TAB PO SCH (21:11)
--- NOTE | 2017-12-14 01:25 | PN ---
Date of Progress Note: 12/13/2017 Subjective: The patient was seen this morning for followup. Her was present with her at bed side. She is participating well with physical therapy. Denies much pain in her hip. Objective: Vital Signs: Reviewed. HEENT: Unremarkable. Lungs: Clear to auscultation. Heart: Sounds normal. Abdomen: Soft, bowel sounds normal. No guarding, rigidity, tenderness, or distention. Extremities: No leg edema. Impression: 1.Left hip intertrochanteric fracture. 2.Coronary artery disease. 3.Chronic atrial fibrillation. Plan: We will go ahead and continue Xarelto. Continue on pain medications. Physical therapy to con chenue to work with the patient. We are waiting for insurance company's decision regarding the patien t's rehab state. I will see her tomorrow for followup. RYAN/YEISON Voice ID: [id number] Report ID: [id number]
[2017-12-14] MEDS: LEVOTHYROXINE SOD 0.05 MG TABLET PO SCH (04:59)
[2017-12-14] MEDS: MORPHINE 4 MG/ML SYR IV PRN (04:59)
[2017-12-14 08:02] LABS: Absolute Lymphocytes (CBC) 2.2 K/uL (0.7-4.9); Absolute Monocytes 0.5 K/uL (0.1-1.3); Absolute Neutrophil 4.8 K/uL (1.8-8.0); Basophils % 0.7 % (0-1.3); Eosinophils % 2.3 % (0-4.4); Hematocrit 36.3 % (36.0-45.0); Lymphocytes % 28.4 % (15.3-44.8); MCH 30.1 pg (27.0-35.0); MCV 93.5 fL (80-100); MPV 9.8 fL (7.6-11.3); Monocytes % 6.5 % (3.3-12.3); RBC Red Blood Cell Count 3.89 M/uL (3.86-4.86)
[2017-12-14] MEDS: TRAMADOL HCL 50 MG TAB PO SCH ×2 (08:04→13:39)
[2017-12-14] MEDS: CYANOCOBALAMIN 1,000 MCG TAB PO SCH (08:04)
[2017-12-14] MEDS: VITAMIN D 5,000 UNIT CAP PO SCH (08:04)
[2017-12-14] MEDS: DOCUSATE NA 100 MG CAP PO SCH (08:05)
[2017-12-14] MEDS: GABAPENTIN 300 MG CAP PO SCH ×2 (08:05→13:49)
[2017-12-14 08:08] LABS: Bicarbonate 34 mEq/L (21-31); Glucose Level 99 mg/dL (65-120); Potassium 4.1 mEq/L (3.6-5.0); Sodium Level 139 mEq/L (135-145)
[2017-12-14 08:11] LABS: ALT/SGPT 41 IU/L (10-60); AST/SGOT 74 IU/L (10-42); Albumin 3.1 g/dL (3.2-5.5); Alkaline Phosphatase 263 IU/L (42-121); BUN Blood Urea Nitrogen 11 mg/dL (6-20); Bilirubin Total 0.8 mg/dL (0.3-1.2); Magnesium 1.6 mg/dL (1.8-2.5); Protein, Total 5.8 g/dL (6.0-8.3)
[2017-12-14] MEDS ORDERED: MAGNESIUM SULFATE 1 gm IVPB 1 GM/100 ML BAG IV ONE (08:16)
--- NOTE | 2017-12-14 09:53 | RAD REPORT ---
EXAM DESCRIPTION: RADTib Fib Left12/14/2017 9:16 am CLINICAL HISTORY: Left leg pain FINDINGS: No fracture is seen. The bones are osteoporotic. A left tibial prosthesis is in good posi tion without evidence of loosening
[2017-12-14 12:33] VITALS: BP 96/53; TEMP 96.8
[2017-12-14 13:03] VITALS: O2SAT 95
--- NOTE | 2017-12-15 01:26 | DS ---
Date of Discharge: 12/14/2017 The patient was seen this morning for followup. No new complaints problems or reported by her. Objective: Vital Signs: Reviewed. HEENT: Examination unremarkable. Lungs: Clear to auscultation. Heart: Sounds normal. Abdomen: Soft, bowel sounds normal. No guarding, rigidity, tenderness, or distention. Extremities: No leg edema. Discharge Medications And Instructions: Continue all prior home medications. 1. Take Xarelto 20 mg 1 p.o. daily with evening meal. 2. Follow up with my office next month per her scheduled appointment. 3. Follow up with orthopedic surgeon next week. 4. Home health and home physical therapy as arranged by Social Service. Hospital Course: A 72-year-old female patient, who came into my office with complaint of left leg pain. Please see dictated H and P for more information. The patient was out of town over the weekend and had fallen down, went to the emergency room where she was out of town. Workup was done which was reported as negative for any fracture. She was sent home. Since that fall, she was not able to get out of bed or walk or stand. brought her to my office. After she was evaluated, I was concerned and she was sent to emergency room for further evaluation to rule out any possibility of fracture. Further evaluation in the ER did reveal the patient had left hip intertrochanteric fracture. She was admitted to the hospital. Orthopedic consultation was obtained. The patient had surgery done. Postoperatively, she has done very well. She did not require much pain medication. She started to participate very well with the physical therapy. Her EKG had shown atrial fibrillation. She has prior history of atrial fibrillation. She was on Xarelto, but for some reason, she stopped it as of October of this year. She reported that it was discontinued by manufacturing quality inspector but she could not tell me why. She did not have any complications or any problems taking Xarelto. Preoperative consultation was obtained from Dr. Alba, and he did recommend for the patient to get back on Xarelto, which was started after the surgery, 20 mg daily. The patient's hemoglobin remained stable. She had some constipation, which was addressed with stool softener Senokot-S two tablets daily and she has responded well to that. Social Service was consulted. Inpatient rehab was consulted and the patient's insurance refused to authorize inpatient rehab stay. I was notified of that today. The patient informed me that her choice would be to go home with home health and home physical therapy if insurance denied inpatient rehab. So, Social Service did make arrangements for the patient to go home with home health and home physical therapy after the denied for inpatient stay. The patient was discharged to go home in stable condition with above-mentioned medication and instructions. Final Diagnoses: 1. Left hip intertrochanteric fracture. 2. Chronic atrial fibrillation. 3. Coronary artery disease. 4 Hypertension. 5. Osteoarthritis, multiple sites. 6. Hyperlipidemia. 7. Hypothyroidism. RYAN/MODL Voice ID: [id number] Report ID: [id number] ROXANN
--- NOTE | 2018-03-04 14:41 | CON ---
Reason For Consultation: Left intertrochanteric hip fracture. History Of Present Illness: Ms. Amador sustained a fall in her home resulting in her intertrochanteri c hip fracture. We were consulted for this. She has significant medical history. She is currently 72 years of age. She has hypothyroidism, osteoarthritis, depression, hyperlipidemia. Coronary arter y disease, history of AFib, weakness, hypertension, chronic pain, obstructive sleep apnea, rheumatoid arthritis, alcohol abuse, and chronic dizziness. Medications: See attached list. She was on blood thinners that has been ceased. Social History: She smokes apparently. Allergies: ACETAMINOPHEN, CIPROFLOXACIN, HYDROCODONE. Physical Examination: GENERAL: Reveals well developed, well nourished, BMI of 25, slightly thin, complains of pain in her hip. X-rays: Reveal a multiport intertrochanteric hip fracture. Plan: Will be to proceed with intramedullary rodding after medical clearance. TACHO Voice ID: [id number] Report ID: [id number]
== END 2017-12-14 14:06 | disposition home health service (06) | DRG 482 ==
LOC: ER 10:13 → ERHOLD 13:01 → 2ND 14:36
PROVIDERS: ADMIT Internal Medicine; ATTEND Internal Medicine
PROC: 0QH736Z Insertion of Intramedullary Internal Fixation Device into Left Upper Femur, Percutaneous Approach (ICD-10-PCS; principal; 2017-12-08 14:00)
DX: S72.142A Displaced intertrochanteric fracture of left femur, initial encounter for closed fracture (principal); K59.00 Constipation, unspecified; I48.2 Chronic atrial fibrillation; I25.10 Atherosclerotic heart disease of native coronary artery without angina pectoris; M19.90 Unspecified osteoarthritis, unspecified site; E78.5 Hyperlipidemia, unspecified; E03.9 Hypothyroidism, unspecified; E87.5 Hyperkalemia; E83.42 Hypomagnesemia; W10.9XXA Fall (on) (from) unspecified stairs and steps, initial encounter; Y92.009 Unspecified place in unspecified non-institutional (private) residence as the place of occurrence of the external cause
CPT/HCPCS: 36415; 72100; 72170; 73530; 80048; 80053; 80061; 81003; 81015; 82306; 82607; 82746; 82962; 83735; 85025; 85610; 85730; 93005; 96374; 96375; 97163; 99285; J0690; J1650; J2175; J2405; J2710; J3010; J3475

== ENCOUNTER 2018-07-07 08:19 | Emergency (ER) | payer MEDICARE ==
--- OUTSIDE RECORDS SUMMARY | 2018-07-07 08:22 | XMS REPORT ---
:1945 [facility] Address [address] [place] [address] Care Team Providers Name Role Phone DR JAMES DOUGLAS Unavailable Unavailable Problems This patient has no known problems. Allergies, Adverse Reactions, Alerts This patient has no known allergies or adverse reactions. Medications This patient has no known medications. Encounters Start End Encounter Admission Attending Care Care Encounter Date/Time Date/Time Type Type Clinicians Facility Department ID 2017-12-01 2017-12-01 Emergency E [facility] [id number] 15:37:00 17:48:00 JAMES Results Test Description Test Time Test Comments Text Results Atomic Results Result Comments CT ABDOMEN AND PELVIS 2017-12-01 17:07:47 CT abdomen and pelvis without W/O CONTRAST contrastLocation Code: [id number] HISTORY: R10.2: PELVIC AND PERINEAL PAINCOMPARISON: NoneTechnique: [...] Heparin. Order Code is ANTI-XA COMPREHENSIVE METABOLIC [id number] 16:59:00 Test Item Value Reference Range Comments [...] IU/L <=78 XR FEMUR LEFT AP & [id number] 16:58:20Left femur, 4 viewsLocation Code: [id number] history: R10.2: PELVIC AND PERINEAL PAINComment: AP andlateral views of the left femur demonstrate no displacedfracture or malalignment. Left total knee arthroplasty is intact. The softtissues are unremarkable.Impression: No acute radiographic abnormality.[id number] 16:46:00 Test Item Value Reference Range Comments [...]
[2018-07-07] MEDS ORDERED: HYDROCODONE/APAP 5/325 MG TAB ONE (09:24)
--- NOTE | 2018-07-07 09:34 | RAD REPORT ---
EXAM DESCRIPTION: RAD - Wrist Left 3 View - 07/07/2018 9:21 am CLINICAL HISTORY: Left wrist pain status post injury FINDINGS: No fracture or dislocation is seen. If the patient continues to have symptoms to suggest an occult fracture then a followup plain film se harsha in 7 days would be recommended
--- NOTE | 2018-07-07 09:42 | RAD REPORT ---
EXAM DESCRIPTION: RAD -Hand Left 3 View - 07/07/2018 9:21 am CLINICAL HISTORY: Left hand pain status post injury FINDINGS: Small bony density lies adjacent to the base of the first metacarpal. Most likely it is ch ronic. An acute avulsion fracture is less likely and should be correlated clinically. Bones are osteoporotic. No dislocation is noted
--- NOTE | 2018-07-07 10:00 | ER ---
Nurse's Notes [facility] Name: Germaine Amador Age: 73 yrs Sex: Female : 1945 Arrival Date: 07/07/2018 Time: 08:21 Bed 16 Private MD: Brandon Rubalcava C Diagnosis: Pain in left wrist;Pain in left hand Presentation: 07/07 08:30 Presenting complaint: Patient states: Left wrist pain after mechanical fall from hb standing on outstretched hand yesterday. Transition of care: patient was not received from another setting of care. Onset of symptoms was July 06, 2018. Risk Assessment: Do you want to hurt yourself or someone else? Patient reports no desire to harm self or others. Care prior to arrival: None. 08:30 Method Of Arrival: Ambulatory hb 08:30 Acuity: MELLO 4 hb 08:42 Initial Sepsis Screen: Does the patient meet any 2 criteria? No. Patient's initial em sepsis screen is negative. Does the patient have a suspected source of infection? No. Patient's initial sepsis screen is negative. Triage Assessment: 08:42 General: Appears in no apparent distress. comfortable, Behavior is calm, cooperative. em Pain: Complains of pain in left hand and left wrist. Historical: - Allergies: 08:32 Aminophylline; hb 08:32 Cipro IV; hb 08:32 Iodinated Contrast Media - IV Dye; hb 08:32 Warfarin; hb - Home Meds: 08:32 escitalopram oxalate 5 mg Oral tab 1 tab once daily [Active]; Estroven 155 mg Oral cap hb daily [Active]; gabapentin 300 mg Oral cap 1 cap daily [Active]; hydroxyzine HCl 20mg Oral tab 2 tabs 4 times per day [Active]; 08:32 levothyroxine 25 mcg tab 1 tab once daily [Active]; niacin 500 mg Oral TbER 1 caps once hb daily [Active]; Pepcid Oral [Active]; tramadol 50 mg Oral tab 1 tab BID PRN [Active]; Xarelto 20 mg Oral tab 1 tab once daily [Active]; - PMHx: 08:32 Chronic pain; EDEMA; Alcoholism; Hypertension; Rheumatoid Arthritis; Sleep Apnea; hb - PSHx: 08:32 Cholecystectomy; Knee surgery; Gastric Bypass; corneal transplant x5; hb - Immunization history:: Adult Immunizations up to date. - Social history:: Smoking status: Patient/guardian denies using tobacco. - Ebola Screening: : No symptoms or risks identified at this time. Screenin:41 Abuse screen: Denies threats or abuse. Nutritional screening: No deficits noted. em Tuberculosis screening: No symptoms or risk factors identified. Fall Risk None identified. Assessment: 08:38 General: Appears in no apparent distress. comfortable, Behavior is calm, cooperative. em Pain: Complains of pain in left hand and left wrist Pain currently is 10 out of 10 on a pain scale. Pain began 1 day ago. Neuro: Level of Consciousness is awake, alert, obeys commands, Oriented to person, place, time, situation, Speech is normal, Denies weakness dizziness. Cardiovascular: Capillary refill < 3 seconds Patient's skin is warm and dry. Respiratory: Airway is patent Respiratory effort is even, unlabored, Respiratory pattern is regular, symmetrical. GI: No signs and/or symptoms were reported involving the gastrointestinal system. : No signs and/or symptoms were reported regarding the genitourinary system. EENT: No signs and/or symptoms were reported regarding the EENT system. Derm: Skin is intact, Skin is pink, warm \T\ dry. Musculoskeletal: Range of motion: limited in left wrist Swelling present in left wrist. Injury Description:. 09:20 Reassessment: Patient appears in no apparent distress at this time. Patient and/or rb1 family updated on plan of care and expected duration. Pain level reassessed. Patient is alert, oriented x 3, equal unlabored respirations, skin warm/dry/pink. Pt. denies any allergy to the [place] 5 mg-325 mg. 10:20 Reassessment: Patient appears in no apparent distress at this time. Patient and/or rb1 family updated on plan of care and expected duration. Pain level reassessed. Patient is alert, oriented x 3, equal unlabored respirations, skin warm/dry/pink. Patient states feeling better. 10:30 Reassessment: Discharge pending due to waiting on paperwork to be printed. rb1 Vital Signs: 08:30 BP 132 / 78; Pulse 66; Resp 16; Temp 98.1; Pulse Ox 100% on R/A; Pain 10/10; hb 09:30 BP 166 / 80; Pulse 61; Resp 17; Pulse Ox 98% on R/A; rb1 10:30 BP 156 / 63; Pulse 56; Resp 16; Pulse Ox 98% ; Pain 4/10; rb1 ED Course: 08:21 Patient arrived in ED. as 08:22 Branodn Rubalcava MD is Private Physician. as 08:30 Moisés Dumont MD is Attending Physician. kdr 08:31 Triage completed. hb 08:32 Arm band placed on right wrist. hb 08:37 Andrea Mcfarlane LVN is Primary Nurse. em 08:41 Patient has correct armband on for positive identification. Bed in low position. Call em light in reach. Adult w/ patient. 09:22 Hand Left 3 View XRAY In Process Unspecified. EDMS 09:22 Wrist Left (3 View) XRAY In Process Unspecified. EDMS 09:59 Brandon Rubalcava MD is Referral Physician. kdr 10:43 No provider procedures requiring assistance completed. Patient did not have IV access rb1 during this emergency room visit. Administered Medications: 09:22 Drug: [place] 5 mg-325 mg 1 tabs {Note: pt. denies any allergy to the medication.} Route: rb1 PO; 09:53 Follow up: Response: No adverse reaction; Pain is decreased rb1 Outcome: 09:59 Discharge ordered by MD. kdr 10:43 Patient left the ED. rb1 10:43 Discharged to home ambulatory, with significant other. rb1 10:43 Condition: stable 10:43 Discharge instructions given to patient, Instructed on discharge instructions, follow up and referral plans. medication usage, Demonstrated understanding of instructions, follow-up care, medications, Prescriptions given X 2. Signatures: Dispatcher [employer] EDGA Moisés Dumont MD MD kdr Andrea Mcfarlane LVN ACCOUNT ANALYST Rina Yanes as Jenniffre Vargas, RN RN rb1 Jihan Colmenares, SUSAN RN Corrections: (The following items were deleted from the chart) 09:26 08:32 Allergies: Vicodin; hb rb1
--- NOTE | 2018-07-07 10:00 | EDPHYS ---
Physician Documentation [facility] Name: Germaine Amador Age: 73 yrs Sex: Female : 1945 Arrival Date: 07/07/2018 Time: 08:21 Bed 16 Private MD: Brandon Rubalcava C ED Physician Moisés Dumont HPI: 07/07 08:35 This 73 yrs old Female presents to ER via Ambulatory with complaints of Hand kdr Pain - fell yest. 08:35 The patient or guardian reports decreased range of motion, deformity, injury, pain, kdr tenderness. The complaints affect the left side which is dominant, left hand diffusely. Context: The problem was sustained at home, resulted from a fall, while walking. Onset: The symptoms/episode began/occurred suddenly, yesterday. Modifying factors: The symptoms are alleviated by nothing, the symptoms are aggravated by movement. Associated signs and symptoms: The patient has no apparent associated signs or symptoms. Severity of symptoms: At their worst the symptoms were mild, in the emergency department the symptoms are unchanged. The patient has not experienced similar symptoms in the past. The patient has not recently seen a physician. Historical: - Allergies: 08:32 Aminophylline; hb 08:32 Cipro IV; hb 08:32 Iodinated Contrast Media - IV Dye; hb 08:32 Warfarin; hb - Home Meds: 08:32 escitalopram oxalate 5 mg Oral tab 1 tab once daily [Active]; Estroven 155 mg Oral cap hb daily [Active]; gabapentin 300 mg Oral cap 1 cap daily [Active]; hydroxyzine HCl 20mg Oral tab 2 tabs 4 times per day [Active]; 08:32 levothyroxine 25 mcg tab 1 tab once daily [Active]; niacin 500 mg Oral TbER 1 caps once hb daily [Active]; Pepcid Oral [Active]; tramadol 50 mg Oral tab 1 tab BID PRN [Active]; Xarelto 20 mg Oral tab 1 tab once daily [Active]; - PMHx: 08:32 Chronic pain; EDEMA; Alcoholism; Hypertension; Rheumatoid Arthritis; Sleep Apnea; hb - PSHx: 08:32 Cholecystectomy; Knee surgery; Gastric Bypass; corneal transplant x5; hb - Immunization history:: Adult Immunizations up to date. - Social history:: Smoking status: Patient/guardian denies using tobacco. - Ebola Screening: : No symptoms or risks identified at this time. ROS: 08:35 Constitutional: Negative for fever, chills, and weight loss, Eyes: Negative for injury, kdr pain, redness, and discharge, Neck: Negative for injury, pain, and swelling, Cardiovascular: Negative for chest pain, palpitations, and edema. 08:35 MS/extremity: Positive for injury or acute deformity, decreased range of motion, pain, tenderness, of the dorsum of left hand and left wrist. Exam: 08:35 Constitutional: This is a well developed, well nourished patient who is awake, alert, kdr and in no acute distress. 08:35 Musculoskeletal/extremity: Extremities: grossly normal except: noted in the dorsum of left hand and left wrist: decreased ROM, pain, tenderness. Vital Signs: 08:30 BP 132 / 78; Pulse 66; Resp 16; Temp 98.1; Pulse Ox 100% on R/A; Pain 10/10; hb 09:30 BP 166 / 80; Pulse 61; Resp 17; Pulse Ox 98% on R/A; rb1 10:30 BP 156 / 63; Pulse 56; Resp 16; Pulse Ox 98% ; Pain 4/10; rb1 MDM: 09:59 Patient medically screened. kdr 10:23 Data reviewed: vital signs, nurses notes, radiologic studies. Counseling: I had a kdr detailed discussion with the patient and/or guardian regarding: the historical points, exam findings, and any diagnostic results supporting the discharge/admit diagnosis, radiology results, the need for outpatient follow up. 07/07 08:34 Order name: Hand Left 3 View XRAY; Complete Time: 09:58 kdr 07/07 08:34 Order name: Wrist Left (3 View) XRAY; Complete Time: 09:58 kdr 07/07 09:59 Order name: Volar Wrist Splint; Complete Time: 10:47 kdr Administered Medications: 09:22 Drug: [place] 5 mg-325 mg 1 tabs {Note: pt. denies any allergy to the medication.} Route: rb1 PO; 09:53 Follow up: Response: No adverse reaction; Pain is decreased rb1 Disposition: 07/07/18 09:59 Discharged to Home. Impression: Pain in left wrist, Pain in left hand. - Condition is Stable. - Discharge Instructions: Wrist Pain, [id number], Joint Pain, [id number], Hand Pain. - Prescriptions for Tylenol- Codeine #3 300-30 mg Oral Tablet - take 2 tablets by ORAL route every 6 hours As needed Take one to tow tablets every 4-6 hours as needed for pain; 15 tablet. Zofran 4 mg Oral Tablet - take 1 tablet by ORAL route every 4-6 hours As needed; 12 tablet. - Medication Reconciliation Form, Thank You Letter, Prescription Opioid Use form. - Follow up: Brandon Rubalcava MD; When: 2 - 3 days; Reason: If symptoms return, Further diagnostic work-up, Recheck today's complaints, Continuance of care, Re-evaluation by your physician. - Problem is new. - Symptoms have improved. Signatures: Dispatcher [employer] EDPA Moisés Dumont MD MD kdr Jenniffer Vargas, RN RN rb1 Jihan Colmenares RN RN Corrections: (The following items were deleted from the chart) 09:26 08:32 Allergies: Vicodin; hb rb1 10:43 09:59 07/07/2018 09:59 Discharged to Home. Impression: Pain in left wrist; Pain in left rb1 hand. Condition is Stable. Forms are Medication Reconciliation Form, Thank You Letter, Antibiotic Education, Prescription Opioid Use. Follow up: Brandon Rubalcava; When: 2 - 3 days; Reason: If symptoms return, Further diagnostic work-up, Recheck today's complaints, Continuance of care, Re-evaluation by your physician. Problem is new. Symptoms have improved. kdr
[2018-07-07 10:47] VITALS: TEMP 98.1
[2018-07-07 10:49] VITALS: BP 166/80; O2SAT 98
== END 2018-07-07 10:43 | disposition home or self-care (01) ==
LOC: ER 08:19
DX: M25.532 Pain in left wrist (principal); I10 Essential (primary) hypertension; Z88.8 Allergy status to other drugs, medicaments and biological substances; Z91.041 Radiographic dye allergy status
CPT/HCPCS: 99283

== ENCOUNTER 2020-01-15 11:26 | Emergency (ER) | payer MEDICARE ==
--- OUTSIDE RECORDS SUMMARY | 2020-01-15 11:41 | XMS REPORT | Continuity of Care Document ---
:1945 Author Organization [employer] [facility] Care Team Providers Name Role Phone [employer] Unavailable Un available Problems Problem Status Onset Classification Date Comments Sourc e Date Reported Hypothyroidism Active 05/27/20 10/30/2019 [facility] (acquired) 17 Health Near syncope Active 03/17/20 10/30/2019 [facility] 17 Health Excoriated rash Active 03/17/20 10/30/2019 [facility] B 17 Health Polyneuropathy Active 01/26/20 Problem 12/26/2019 [facility] (disorder) 17 Neuro Essential Active 12/30/19 Problem 12/26/2019 [facility] hypertension 17 Neuro (disorder) Glaucoma Active 12/30/19 Problem 12/26/2019 [facility] (disorder) 17 Neuro Paresthesia Resolved 12/30/19 Problem 12/26/2019 [facility] (finding) 17 Neuro Left shoulder pain Active 08/18/20 10/30/2019 [facility] 16 Health Atrial Active Problem 12/26/2019 [facility] fibrillation Neuro (disorder) Hypertensive Resolved Problem 12/26/2019 [facility] disorder, systemic N euro arterial (disorder) Hypothyroidism Active Problem 12/26/2019 [facility] (disorder) Neuro Memory impairment Active Problem 12/26/2019 [facility] (finding) Neuro Cerebrovascular Active Problem 12/26/2019 [facility] lashonda accident Neuro (disorder) Syncope symptom Resolved Problem 12/26/2019 [facility] l[facility]onda (disorder) Neuro Left shoulder Active 10/30/2019 [facility] pain, unspecified He alth chronicity Afib Active 10/30/2019 [facility] Health Hypertension Active 10/30/2019 [facility] Health Depression Active 10/30/2019 [facility] Health Anxiety Active 10/30/2019 [facility] Health Medications Medication Details Route Status Patient Ordering Order Source Instructions Provider Date DULoxetine 20 mg = 1 cap, PO, Active aidee oral delayed release Daily, # 90 2019 Neuro capsule cap, 2 Refill(s), Pharmacy: [facility] #[id number] pregabalin 100 MG 100 mg = 1 Active lashonda Oral Capsule cap, PO, 2020 Neuro [Lyrica] BID, # 60 cap, 3 Refill(s), Pharmacy: [facility] #[id number] ARIPiprazole 2 mg 6 mg = 3 Active 10/24/ ch er oral tablet tab, PO, 2019 Neuro Daily, # 90 tab, 0 Refill(s) ferrous sulfate 325 325 mg = 1 Active ischer mg oral enteric tab, PO, 2019 Neuro coated tablet Bedtime, 0 Refill(s) bimatoprost 0.1 1 drp, BOTH Active c her MG/ML Ophthalmic EYES, 2019 Neuro Solution [Lumigan] Bedtime, # 5 mL, 4 Refill(s) difluprednate 0.5 1 drp, LEFT Active aidee MG/ML Ophthalmic EYE, QID, 2019 Neuro Suspension [Durezol] After 14 days, taper dose as directed by physician., # 5 mL, 0 Refill(s) metoprolol succinate 25 mg = 1 Active ischer 25 mg oral capsule, cap, PO, 2019 Marilyn ro extended release QAM, 0 Refill(s) Alendronic acid 70 70 mg = 1 Active lashonda MG Oral Tablet tab, PO, 2019 Neuro Q7D, # 12 tab, 0 Refill(s) pregabalin 150 MG 150 mg = 1 No 09/30/ Mis lashonda Oral Capsule cap, PO, Longer 2019 Neuro [Lyrica] BID, # 60 Active cap, 0 Refill(s), called to pharmacy DULoxetine 20 mg = 1 cap, PO, Active aidee oral delayed release Daily, # 90 2019 Neuro capsule cap, 1 Refill(s), Pharmacy: [facility] #[id number] pregabalin 150 MG 150 mg = 1 Active 04/26/ Mis lashonda Oral Capsule cap, PO, 2019 Neuro [Lyrica] BID, # 60 cap, 3 Refill(s), called to pharmacy Escitalopram 5 mg See Active [facility] r oral tablet Instructions 2019 Neuro , 1 po qd, 0 Refill(s) pregabalin 150 MG 150 mg = 1 Active 01/02/ Mis lashonda Oral Capsule cap, PO, 2019 Neuro [Lyrica] BID, # 60 cap, 3 Refill(s) pregabalin 150 MG 150 mg = 1 No 05/08/ lashonda Oral Capsule cap, PO, Longer 2018 Neuro [Lyrica] BID, X 30 Active day, # 60 cap, 3 Refill(s), given to patient methylPREDNISolone Take 21 Oral Active [facility] (MEDROL, DANIELA,) 4 mg tablets by 2018 H ealth tablets mouth SEE-INSTRUCT IONS. follow package directions atorvastatin 40 mg Active [facility] tablet 2017 Health levothyroxine 50 mcg Active 10/28/ [facility] B tablet 2017 Health traMADOL 50 mg Take 1 Oral Active 07/07/ [facility] tablet tablet by 2016 Health mouth every 8 (eight) hours as needed for Pain (scale 4-6) or Pain (scale 7-10). hydrOXYzine 50 mg Take 1 Oral Active 07/07/ [facility] tablet tablet by 2016 Health mouth every 6 (six) hours. Can be hcl or pamoate. escitalopram oxalate Take 1.5 Oral Active 04/20/ [facility] 10 mg tablet tablets by 2016 Health mouth daily. amLODIPine 5 mg Take 1 Oral Active [facility] tablet tablet by 2017 Health mouth daily. prednisoLONE acetate INT 1 GTT IN Active MB (PRED-FORTE) 1 % OU QID. 2016 Health ophthalmic suspension drops LUMIGAN 0.01 % INSTILL 1 Active MB ophthalmic drops DROP IN BOTH 2016 He alth EYES QHS COMBIGAN 0.2-0.5 % INSTILL 1 Active [facility] B ophthalmic drops DROP IN BOTH 2016 He alth EYES BID XARELTO 20 mg tablet TK 1 T PO Active 08/07/ [facility] QPM. 2016 Health gabapentin 300 mg Take 300 mg Oral Active [facility] capsule by mouth at Health bedtime. vitamin B-12 Take 1,000 Oral Active [facility] (VITAMIN B-12) 1,000 mcg by mouth Health mcg tablet daily. Allergies, Adverse Reactions, Alerts Substance Category Reaction Severity Reaction Status Date Comments S ource type Reported Iodine Anaphylaxis Propensity Active [facility] to adverse 6 Healt h reactions Moxifloxacin Rash, High, Propensity Active [facility] Hcl Shortness High to adverse 7 Hea lth of Breath reactions Ciprofloxaci Unknown - Propensity Active [facility] n See to adverse 7 Healt h comments reactions Warfarin Unknown - Propensity Active [facility] See to adverse 7 Healt h comments reactions ciprofloxaci Assertion Moderate Drug Active [facility] n allergy Neuro acetaminophe Assertion Moderate Drug Active [facility] n-hydrocodon allergy Marilyn ro e ciprofloxaci Assertion Hives Drug Active M ischer n ophthalmic allergy Marilyn ro Warfarin Assertion Moderate Drug Active Misc her Sodium allergy Neuro iodine Assertion Moderate Drug Active Misch er allergy Neuro contrast Assertion Drug Active Misch er media allergy Neuro (iodine-base d) Immunizations Immunization Date Given Site Status Last Updated Comments Sherry rce Influenza High 06/03/2016 completed [facility] Dose Health Pneumococcal 13 12/02/2013 completed [facility] B Conjugate, PCV13 He lth (Prevnar 13) Pneumococcal 12/02/2012 completed [facility] Polysaccharide, Heal th PPSV23 (PNEUMOVAX) Results No Data Provided for This Section Pathology Reports No Data Provided for This Section Diagnostic Reports Report Value Date Source XR SHOULDER <2 VW LEFT No fractures or dislocations / a/c que int sprain 10/30/2019 [facility] Health Consultation Notes No Data Provided for This Section Discharge Summaries No Data Provided for This Section History and Physicals No Data Provided for This Section Vital Signs Vital Sign Value Date Comments Source Systolic (mm Hg) 118 10/28/[address] [facility] Diastolic (mm Hg) 67 10/28/2019 [facility] Healt h Heart Rate 58 10/28/2019 [facility] Health Height 160 cm 10/28/2019 [facility] Health Weight 73.029 10/28/2019 [facility] Health Systolic (mm Hg) 176 10/24/2019 [facility] Marilyn ro Diastolic (mm Hg) 100 10/24/2019 [facility] Ne uro Heart Rate 78 10/24/2019 [facility] Neuro Respitory Rate 16 10/24/2019 [facility] Neuro Height 157.48 cm 10/24/2019 [facility] Neuro Weight 75.909 10/24/2019 [facility] Neuro BMI Calculated 30.61 10/24/2019 [facility] Neuro Systolic (mm Hg) 145 05/27/2019 [facility] Marilyn ro Diastolic (mm Hg) 81 05/27/2019 [facility] Ne uro Heart Rate 56 05/27/2019 [facility] Neuro Respitory Rate 16 05/27/2019 [facility] Neuro Height 154.94 cm 05/27/2019 [facility] Neuro Weight 79.091 05/27/2019 [facility] Neuro BMI Calculated 32.95 05/27/2019 [facility] Weight 79.545 01/02/2019 [facility] BMI Calculated 33.13 01/02/2019 [facility] Height 154.94 cm 01/02/2019 [facility] Systolic (mm Hg) 155 01/02/2019 [facility] Marilyn ro Diastolic (mm Hg) 89 01/02/2019 [facility] Heart Rate 57 01/02/2019 [facility] Respitory Rate 16 01/02/2019 [facility] Systolic (mm Hg) 150 09/27/2018 [facility] Marilyn ro Diastolic (mm Hg) 91 09/27/2018 [facility] Heart Rate 61 09/27/2018 [facility] Respitory Rate 16 09/27/2018 [facility] Height 157.48 cm 09/27/2018 [facility] Weight 74.545 09/27/2018 [facility] BMI Calculated 30.06 09/27/2018 [facility] BMI Cal[facility] 30.71 [facility] 78.636 [facility] Height 160.02 cm 08/01/2018 [facility] Neuro Heart Rate 69 [facility]/01[facility] Systolic (mm Hg) 177 08/01/2018 [facility] Marilyn ro Diastolic (mm Hg) 80 08/01/2018 [facility] Ne uro Encounters Location Location Encounter Encounter Reason Attending ADM CA Stat us Source Details Type Number For Provider Date Date Visit Outpatient [id number] ANTONIA 11/09 [facility] Esdras Outpatient [id number] ANTONIA 01/31 Active [facility] Esdras Outpatient [id number] ANTONIA 02/08 Active [facility] Outpatient [id number] ANTONIA 03/16 Active [facility] Outpatient [id number] ANTONIA 05/02 [facility] Esdras Outpatient [id number] ANTONIA 08/01 [facility] Peterman MNA Outpatient [id number] Antonia 08/01 08/02 [facility] Neurology [facility] [place] Outpatient [id number] ANTONIA 09/27 Active [facility] Esdras MNA Outpatient [id number] Antonia 09/27 09/28 [facility] Neurology [facility] [place] Outpatient [id number] ANTONIA 10/31 Active [facility]dr[facility] Outpatient [id number] ANTONIA 11/08 [facility] [id number] ANTONIA 11/08 [facility] [id number] Antonia 01/02 [facility] M[facility] Outpatient [id number] Antonia 01/02 01/03 [facility] [place] Outpatient [id number] Antonia 05/27 [facility] Outpatient [id number] Antonia 05/27 05/28 [facility] [place] Outpatient [id number] Antonia 08/20 [facility] MNA Ambulatory [id number] Antonia 08/20 08/20 [facility] [place] Outpatient [id number] Antonia 09/17 [facility] M[facility] Ambulatory [id number] Antonia 09/17 09/17 [facility] [place] Outpatient [id number] Antonia 10/24 [facility] M[facility] Outpatient [id number] Antonia 10/24 10/25 [facility] [place] [facility] Health Office [id number] [place] 10/28 10/28 [facility] B Orthopaedic Visit [facility] Surgery- [facility] [id number] Noah 10/28 10/29 [facility] Encounter Chang /2019 [facility] Orthopedics - Radiology Outpatient [id number] Antonia 12/23 [facility] Out[facility] [id number] Antonia 12/23 [facility] M[facility] Ambulatory [id number] Antonia 12/23 12/23 [facility] [place] MNA Outpatient [id number] Antonia 12/23 12/24 [facility] /2019 Neuro [place] Outpatient [id number] Antonia 04/21 [facility] Procedures Procedure Code Date Perfomer Comments Source Abdominal [id number] [facility] hysterectomy Corneal transplant [id number] [facility] Gastric bypass [id number] [facility] Total knee [id number] [facility] Neuro replacement Assessment and Plan No Data Provided for This Section Plan of Care Plan of Care Date Source XR SHOULDER <2 VW LEFT 10/29/2019 [facility] Health IMAGING Routine Left 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 Medicare Wellness Visit [address] [facility] Osteoporosis Screening [address] [facility] Zoster Recombinant Vaccine [address] [facility] (SHINGRIX) (1 of 2) DTaP,Tdap,and Td Vaccines (1 - 1954 [facility] Heal th Tdap) Social History Social History Date Source Tobacco UseTypesPacks/DayYears UsedDate 10/28/[address] [facility] Never Smoker Smokeless Tobacco: Never Used Alcohol UseDrinks/Weekoz/WeekComments No 0 Standard drinks or equivalent 0.0 Sex Assigned at BirthDate Recorded Not on file Job Start DateOccupationIndustry Not on file Not on file Not on file Travel HistoryTravel StartTravel End No recent travel history available. documented as of this encounter Social History TypeResponse 04/30/2015 [facility] Alcohol Past Smoking Status Never smoker; Exposure to Tobacco Smoke None; Cigarette Smoking Last 365 Days No; Reg Smoking Cessation Counseling No entered on: 12/24/19 Family History No Data Provided for This Section Advance Directives No Data Provided for This Section Functional Status No Data Provided for This Section
--- OUTSIDE RECORDS SUMMARY | 2020-01-15 11:42 | XMS REPORT | Summary of Care ---
:1945 Author Organization [facility] Neurology [place] Address [address] [place] [address]- phone Encounter HQ Encntr_alias(FIN) [id number] Date(s): 12/24/19 - 12/24/19 [facility] [address] [place] [address]- [phone] Attending Physician: Uday De La Cruz MD Vital Signs No data available for this section Problem List Condition Effective Dates Status Health Status Informant Atrial fibrillation(Confirmed) Active Essential (primary) 12/29/16 Active hypertension(Confirmed) Unspecified glaucoma(Confirmed) 12/29/16 Active HTN - Hypertension(Confirmed) Resolved Hypothyroidism(Confirmed) Active Memory loss(Confirmed) Active Paresthesia Of Skin(Confirmed) 12/29/16 Resolved Polyneuropathy, 01/25/17 Active unspecified(Confirmed) Stroke(Confirmed) Active Syncope symptom(Confirmed) Resolved Allergies, Adverse Reactions, Alerts Substance Reaction Severity Status ciprofloxacin Moderate Active acetaminophen-hydrocodone Moderate Active ciprofloxacin ophthalmic Hives Active Warfarin Sodium Moderate Active iodine Moderate Active contrast media (iodine-based) Ac tive Medications No data available for this section Results No data available for this section Immunizations No data available for this section Procedures Procedure Date Related Diagnosis Body Site Status Abdominal hysterectomy Compl eted Corneal transplant Completed Gastric bypass Completed Total knee replacement Compl eted Social History Social History Type Response Alcohol Past Smoking Status Never smoker; Exposure to To bacco Smoke None; Cigarette Smoking Last 365 Days No; Reg Smoking Cessation Counseling No entered on: 12/24/19 Assessment and Plan No data available for this section
--- OUTSIDE RECORDS SUMMARY | 2020-01-15 11:42 | XMS REPORT | Summary of Care ---
:1945 Author Organization [facility] Neurology [place] Address [address] [place] [address]- phone Encounter HQ Selene_mario(FIN) [id number] Date(s): 05/27/19 - 05/27/19 [facility] [place] [address] [place], [place] [id number]- [phone] Discharge Disposition: Home or Self Care Attending Physician: Uday De La Cruz MD Referring Physician: Torin Rubalcava MD Vital Signs Most recent to oldest [Reference Range]: 1 Height 154.94 cm (05/27/19 1:34 PM) Blood Pressure [90-140/60-90 mmHg] 145/81 mmHg *HI* (05/27/19 1:34 PM) Respiratory Rate [14-20 BRMIN] 16 BRMIN (05/27/19 1:34 PM) Peripheral Pulse Rate [60-100 bpm] 56 bpm *LOW* (05/27/19 1:34 PM) Weight 79.091 kg (05/27/19 1:34 PM) Body Mass Index 32.95 m2 (05/27/19 1:34 PM) Problem List Condition Effective Dates Status Health [...] Active contrast media (iodine-based) Ac tive Medications DULoxetine 20 mg oral delayed release capsule = 1 cap, PO, Daily, # 90 cap, 1 Refill(s), Pharmacy: [facility] #[id number] Start Date: 05/27/19 Stop Date: 11/23/19 Status: OrderedLyrica 150 mg oral capsule 150 mg = 1 cap, PO, BID, # 60 cap, 3 Refill(s), called to pharmacy Start Date: 04/26/19 Stop Date: 08/24/19 Status: Ordered Results No data available for this section [...] Reg Smoking Cessation Counseling No entered on: 05/27/19 Assessment and Plan No data available for this section
--- OUTSIDE RECORDS SUMMARY | 2020-01-15 11:42 | XMS REPORT | Summary of Care ---
:1945 Author Organization [facility] Neurology [place] Address [address] [place] [address]- phone Encounter HQ Encntr_alias(FIN) [id number] Date(s): 08/20/19 - 08/20/19 [facility] [address] [place] [address]- [phone] Attending Physician: Uday De La Cruz MD Referring Physician: Torin Rubalcava MD Vital Signs No data available for [...]
--- OUTSIDE RECORDS SUMMARY | 2020-01-15 11:42 | XMS REPORT | Summary of Care ---
:1945 Author Organization [facility] Neurology [place] Address [address] [place] [address]- Encounter HQ Selene_mario(FIN) [id number] Date(s): 10/24/19 - 10/24/19 [facility] [address] [place], [place] [address]- [phone] Discharge Disposition: Home or Self Care Attending Physician: Uday De La Cruz MD Vital Signs Most recent to oldest [Reference Range]: 1 Height 157.48 cm (10/24/19 2:22 PM) Blood Pressure [90-140/60-90 mmHg] 176/100 mmHg *HI* (10/24/19 2:22 PM) Respiratory Rate [14-20 BRMIN] 16 BRMIN (10/24/19 2:22 PM) Peripheral Pulse Rate [60-100 bpm] 78 bpm (10/24/19 2:22 PM) Weight 75.909 kg (10/24/19 2:22 PM) Body Mass Index 30.61 m2 (10/24/19 2:22 PM) Problem List Condition Effective Dates Status [...] Active contrast media (iodine-based) Ac tive Medications alendronate 70 mg oral tablet 70 mg = 1 tab, PO, Q7D, # 12 tab, 0 Refill(s) Start Date: 10/24/19 Status: OrderedARIPiprazole 2 mg oral tablet 6 mg = 3 tab, PO, Daily, # 90 tab, 0 Refill(s) Start Date: 10/24/19 Status: OrderedDurezol 0.05% ophthalmic emulsion 1 drp, LEFT EYE, QID, After 14 days, taper dose as directed by physician., # 5 mL, 0 Refill(s) Start Date: 10/24/19 Stop Date: 11/07/19 Status: Orderedferrous sulfate 325 mg oral enteric coated tablet 325 mg = 1 tab, PO, Bedtime, 0 Refill(s) Start Date: 10/24/19 Status: OrderedLumigan 0.01% ophthalmic solution 1 drp, BOTH EYES, Bedtime, # 5 mL, 4 Refill(s) Start Date: 10/24/19 Status: OrderedLyrica 100 mg oral capsule 100 mg = 1 cap, PO, BID, # 60 cap, 3 Refill(s), Pharmacy: [facility] #[id number] Start Date: 10/24/19 Stop Date: 02/21/20 Status: OrderedLyrica 150 mg oral capsule 150 mg = 1 cap, PO, BID, # 60 cap, 0 Refill(s), called to pharmacy Start Date: 09/30/19 Stop Date: 10/24/19 Status: Discontinuedmetoprolol succinate 25 mg oral capsule, extended release 25 mg = 1 cap, PO, QAM, 0 Refill(s) Start Date: 10/24/19 Status: Ordered Results No data available for this section Immunizations No data available for this section Procedures Procedure Date Related Diagnosis Body Site Status Abdominal hysterectomy Compl eted Corneal transplant Completed Gastric bypass Completed Total knee replacement Compl eted Social History Social History Type Response Alcohol Past Smoking Status Never smoker; Exposure to To bacco Smoke Unable to obtain; Cigarette Smoking Last 365 Days No; Reg Smoking Cessation Counseling No entered on: 10/24/19 Assessment and Plan No data available for this section
--- OUTSIDE RECORDS SUMMARY | 2020-01-15 11:42 | XMS REPORT | Summary of Care ---
:1945 Author Organization [facility] Neurology [place] Address [address] [place] [address]- phone Encounter HQ Sulemantr_mario(FIN) [id number] Date(s): 12/24/19 - 12/24/19 [facility] [address] [place] [address]- [phone] Discharge Disposition: Home or Self Care Attending [...] 1 cap, PO, Daily, # 90 cap, 2 Refill(s), Pharmacy: [facility] #[id number] Start Date: 12/24/19 Stop Date: 09/19/20 Status: Ordered Results No data available for [...]
--- OUTSIDE RECORDS SUMMARY | 2020-01-15 11:42 | XMS REPORT | Summary of Care ---
:1945 Author Organization [facility] Neurology [place] Address [address] [place] [address]- phone Encounter HQ Encntr_alias(FIN) [id number] Date(s): 09/17/19 - 09/17/19 [facility] [address] [place] [address]- [phone] Attending Physician: Uday De La Cruz MD [...]
--- OUTSIDE RECORDS SUMMARY | 2020-01-15 11:44 | XMS REPORT ---
:1945 Author Organization [facility] t Address [address] [place] [address] Care Team Providers Name Role Phone Demond De La Cruz Attending Clinician Krysten Chang MD Attending Clinician DR MISAEL Attending Clinician Unavailable DR MISAEL Admitting Clinician Unavailable Problems This patient has no known problems. Allergies, Adverse Reactions, Alerts This patient has no known allergies or adverse reactions. Medications This patient has no known medications. Procedures This patient has no known procedures. Encounters Start End Encounter Admission Attending Care Care Encounter Source Date/Time Date/Time Type Type Clinicians Facility Department ID 2019-12-24 2019-12-24 Outpatient MINERVA De La Cruz [id number] 14:45:00 23:59:59 Uday 16 Januarydelfino monsalve [facility] 2019-12-24 2019-12-24 Outpatient MINERVA De La Cruz [id number] 13:45:00 13:45:00 Uday 15 Klaudia monsalve [facility] 2019-10-28 2019-10-[address] [facility] [id number] [facility] - 16:26:00 23:59:00 Encounter Noah Bashir [facility] [id number] Health Surgical [id number] Specialti [id number] es 809 [place] 2019-10-28 2019-10-28 Office Bernardo [facility] [id number] [facility] - 15:51:41 16:37:20 [place] [id number] [facility] Surgical [id number] Specialti [id number] es 198 [place] 2019-10-28 2019-10-28 Office Bernardo [facility] [id number] [facility] - 15:51:41 16:37:20 Visit [facility] [id number] He [facility] Surgical [id number] Specialti [id number] es 198 [place] 2019-10-24 2019-10-24 Outpatient Jono MHMISCHER MHMISCHER [id number] 14:15:00 23:59:59 Uday 14 Mische r [facility] 2019-09-17 2019-09-17 Outpatient Jono MHMISCHER MHMISCHER [id number] 13:00:00 13:00:00 Uday 13 Mische r [facility] 2019-08-20 2019-08-20 Outpatient Jono MHMISCHER MHMISCHER [id number] 14:00:00 14:00:00 Uday 12 Mische r [facility] 2019-05-27 2019-05-27 Outpatient Jono MHMISCHER MHMISCHER [id number] 13:15:00 23:59:59 Uday 11 Mische r [facility] 2019-01-02 2019-01-02 Outpatient Jono MHMISCHER MHMISCHER [id number] 14:30:00 23:59:59 Uday 10 Mische r [facility] 2018-09-27 2018-09-27 Outpatient Jono MHMISCHER MHMISCHER [id number] 15:30:00 23:59:59 Uday 07 Mische r [facility] 2018-08-01 2018-08-01 Outpatient Jono MHMISCHER MHMISCHER [id number] 15:00:00 23:59:59 Uday 05 Mische r [facility] 2017-12-01 2017-12-01 Emergency E MISAEL [facility] [id number] [facility] 15:37:00 17:48:00 [facility] Results Test Description Test Time Test Comments Results Result [facility] e Comments CT ABDOMEN AND 2017-12-01 CT abdomen and pelvis PELVIS W/O 17:07:47 without contrastLocation CONTRAST Code: [id number] HISTORY: R10.2: PELVIC AND PERINEAL PAINCOMPARISON: NoneTechnique: [...] 2017-12-01 16:59:00 Test Item Value Reference Range Interpretation Comme nts PT (test code = TT) 10.9 s 9.8-13.6 INR (test code = INR) 1.0 INRH (test code = INRH) SUGGESTED THERAPEUTIC RANGE FOR I NR: 2.5 - 3.5 For Patients with Prosthetic Valves or Patients with recurrent Thromboembolic Events 2.0 - 3.0 For Most Other Applications PTT (test code = PTT) 34.3 s 20.2-38.0 PTTH (test code = PTTH) To monitor the effectiveness of hepari n, we offer the Anti-Xa (Heparin Assay). It can be used for either unfractionated or LMW Heparin. Order Code is ANTI-XA COMPREHENSIVE METABOLIC [id number] 16:59:00 Test Item Value Reference Range Interpretation Comments GLUCOSE (test code = 06D) 100 mg/dL 75-100 SODIUM (test code = 01A) 140 mmol/L 136-145 POTASSIUM (test code = 01B) 4.3 mmol/L 3.6-5.1 CHLORIDE (test code = 04A) 105 mmol/L 98-107 CO2 (test code = 02A) 31 mmol/L 22-32 ANION GAP (test code = ANG) 8.3 mmol/L BUN (test code = 05D) 21 mg/dL 7-18 H CREATININE (test code = 03E) 0.7 mg/dL 0.4-1.1 BUN/CREA (test code = BCR) 30 12-20 H CALCIUM (test code = 09D) 8.7 mg/dL 8.3-9.5 BILI TOTAL (test code = 11A) 0.3 mg/dL 0.2-1.0 PROTEIN (test code = 07D) 6.4 g/dL 6.4-8.2 ALBUMIN (test code = 08D) 3.4 g/dL 3.5-4.8 L GLOBULIN (test code = GLB) 3.0 g/dL 1.5-3.8 ALB/GLOB (test code = AGRR) 1.1 1.0-2.6 ALK PHOS (test code = 35A) 112 IU/L 42-121 AST (test code = 30A) 34 IU/L <=42 ALT (test code = 31A) 31 IU/L <=78 XR FEMUR LEFT AP & [id number] 16:58:20Left femur, 4 viewsLocation Code: [id number] history: R10.2: PELVIC AND PERINEAL PAINComment: AP andlateral views of the left femur demonstrate no displacedfracture or malalignment. Left total knee arthroplasty is intact. The softtissues are unremarkable.Impression:No acute radiographic abnormality.[id number] 16:46:00 Test Item Value Reference Range Interpretation Comments COLOR (test code = COLU) YELLOW YELLOW CLARITY (test code = CLA) CLEAR CLEAR GLUCOSE UR (test code = UA GLUCOSE) NEGATIVE NEGATIVE BILI UR (test code = BILE) NEGATIVE NEGATIVE KETONES UR (test code = OLIMPIA) NEGATIVE NEGATIVE SP GRAVITY (test code = SPGR) 1.009 1.005-1.030 PH UR (test code = PH) 6.5 4.5-8.0 PROTEIN UR (test code = PU) NEGATIVE NEGATIVE UROBIL UR (test code = UROQ) 0.2 EU/dL 0.2-1.0 NITRITE UR (test code = NITRITE) NEGATIVE NEGATIVE BLOOD UR (test code = UA BLOOD) NEGATIVE NEGATIVE LEUK ES UR (test code = LEUK) NEGATIVE NEGATIVE CBC (INCLUDES AUTOMATED DIFFERENTIAL)2017-12-01 16:44:00 Test Item Value Reference Range Interpretation Comments WBC (test code = WBC) 8.6 10\S\3/uL 4.5-11.0 RBC (test code = RBC) 4.05 10\S\6/uL 3.80-5.80 HGB (test code = HBG) 12.6 g/dL 12.0-15.5 HCT (test code = HCT) 38.9 % 35.0-44.0 MCV (test code = MCV) 96.0 fL 81.0-99.0 MCH (test code = MCH) 31.1 pg 27.0-31.0 H MCHC (test code = MCHC) 32.4 g/dL 32.0-36.0 RDW (test code = RDW) 13.1 % 11.5-14.5 PLT (test code = PLT) 167 10\S\3/uL 130-400 MPV (test code = MPV) 12.0 fL 9.4-12.4 NEUTROP # (test code = NE#) 5.9 10\S\3/uL 1.6-8.0 LYMPH # (test code = LY#) 1.9 10\S\3/uL 1.1-3.5 MONOCYTE # (test code = MO#) 0.7 10\S\3/uL 0.0-1.1 EOSINOPH # (test code = EO#) 0.1 10\S\3/uL 0.0-0.7 BASOPHIL # (test code = BA#) 0.0 10\S\3/uL 0.0-0.3 IG # (test code = IG#) 0.06 10\S\3/uL 0.00-0.06 NRBC # (test code = NRBC#) 0.00 10\S\3/uL 0.00-0.01 NEUTROPH % (test code = NE%) 68.1 % 35.0-73.0 LYMPH % (test code = LY%) 21.9 % 20.0-55.0 MONO % (test code = MO%) 7.6 % 2.5-10.0 EOSINOPH % (test code = EO%) 1.2 % 0.0-5.0 BASOPHIL % (test code = BA%) 0.5 % 0.0-2.0 IG % (test code = IG%) 0.7 % 0.0-0.8 NRBC% (test code = NRBC%) 0.0 % 0.0-0.2 MANDIFF (test code = MDIFF) NO NO RBC MORPH (test code = RBCMOR) NORMAL
--- NOTE | 2020-01-15 12:26 | EDPHYS ---
Physician Documentation [facility] Name: Germaine Amador Age: 74 yrs Sex: Female : 1945 Arrival Date: 01/15/2020 Time: 11:29 Bed 16 Private MD: Brandon Rubalcava C ED Physician Ling Luz HPI: 01/14 12:21 This 74 yrs old Female presents to ER via Wheelchair with complaints of take ma2 out central line. 12:21 The patient presents with was discharged from [facility] 3 days ago with fem line in place by ma2 mistake. she has no symptoms otherswise . Onset: The symptoms/episode began/occurred suddenly, 3 day(s) ago. Associated signs and symptoms: Pertinent positives: Pertinent negatives: nausea and vomiting, constipation, fever, shortness of breath, vomiting. Modifying factors: The symptoms are alleviated by food, the symptoms are aggravated by. Severity of pain: At its worst the pain was none. The patient has not experienced similar symptoms in the past. Historical: - Allergies: 11:42 Aminophylline; ss 11:42 Cipro IV; ss 11:42 Iodinated Contrast Media - IV Dye; ss 11:42 Warfarin; ss - Home Meds: 11:42 Xarelto 20 mg Oral tab 1 tab once daily [Active]; ss - PMHx: 11:42 Alcoholism; Chronic pain; EDEMA; Hypertension; Rheumatoid Arthritis; Sleep Apnea; ss - PSHx: 11:42 Cholecystectomy; Knee surgery; Gastric Bypass; corneal transplant x5; ss - Immunization history:: Adult Immunizations up to date. - Social history:: Smoking status: Patient denies any tobacco usage or history of. Patient/guardian denies using alcohol, street drugs. - Family history:: not pertinent. ROS: 12:21 Constitutional: Negative for fever, chills, and weight loss. ma2 12:21 All other systems are negative. Exam: 12:21 Constitutional: This is a well developed, well nourished patient who is awake, alert, ma2 and in no acute distress. Chest/axilla: Normal chest wall appearance and motion. Nontender with no deformity. No lesions are appreciated. Cardiovascular: Regular rate and rhythm with a normal S1 and S2. No gallops, murmurs, or rubs. Normal PMI, no JVD. No pulse deficits. Respiratory: Lungs have equal breath sounds bilaterally, clear to auscultation and percussion. No rales, rhonchi or wheezes noted. No increased work of breathing, no retractions or nasal flaring. Abdomen/GI: right femeroal central line is removed by me, no complication no bleeding skin around is dry and in good order., Soft, non-tender, with normal bowel sounds. No distension or tympany. No guarding or rebound. No evidence of tenderness throughout. Skin: Warm, dry with normal turgor. Normal color with no rashes, no lesions, and no evidence of cellulitis. MS/ Extremity: Pulses equal, no cyanosis. Neurovascular intact. Full, normal range of motion. Neuro: Awake and alert, GCS 15, oriented to person, place, time, and situation. Cranial nerves II-XII grossly intact. Motor strength 5/5 in all extremities. Sensory grossly intact. Cerebellar exam normal. Normal gait. Vital Signs: 11:39 BP 111 / 80; Pulse 83; Resp 16; Temp 98.3(TE); Pulse Ox 100% on R/A; Weight 77.11 kg; ss Height 5 ft. 4 in. (162.56 cm); Pain 0/10; 11:39 Body Mass Index 29.18 (77.11 kg, 162.56 cm) ss MDM: 11:45 Patient medically screened. ma2 12:21 Differential diagnosis: central line left by mistake, no cellulitis no bleeding no ma2 symptom. Data reviewed: vital signs, nurses notes. Counseling: I had a detailed discussion with the patient and/or guardian regarding: the historical points, exam findings, and any diagnostic results supporting the discharge/admit diagnosis, the presence of at least one elevated blood pressure reading (>120/80) during this emergency department visit, the need for outpatient follow up. 12:26 ED course: infection is very mild around the catheter, about 1 mm of redness, dry. she ma2 is already on antibiotics iv at home . Administered Medications: No medications were administered Disposition: 01/15/20 12:26 Discharged to Home. Impression: Other infection due to central venous catheter. - Condition is Stable. - Discharge Instructions: Central Lines, [id number]. - Medication Reconciliation Form, Thank You Letter, Antibiotic Education, Prescription Opioid Use form. - Follow up: Private Physician; When: Tomorrow; Reason: Continuance of care. Signatures: Andrea Mcfarlane RN RN em Smirch, Shelby, RN RN Ling Luz MD MD ma2 Corrections: (The following items were deleted from the chart) 12:45 12:26 01/15/2020 12:26 Discharged to Home. Impression: Other infection due to central em venous catheter. Condition is Stable. Forms are Medication Reconciliation Form, Thank You Letter, Antibiotic Education, Prescription Opioid Use. Follow up: Private Physician; When: Tomorrow; Reason: Continuance of care. ma2
--- NOTE | 2020-01-15 12:26 | ER ---
Nurse's Notes [facility] Name: Germaine Amador Age: 74 yrs Sex: Female : 1945 Arrival Date: 01/15/2020 Time: 11:29 Bed 16 Private MD: Brandon Rubalcava C Diagnosis: Other infection due to central venous catheter Presentation: 01/14 11:39 Chief complaint: Patient states: Needs to have central line from R groin removed. Left [facility] 5 days ago post knee surgery and staff forgot to take out central line. Coronavirus screen: Proceed with normal triage. Patient denies a cough. Patient denies shortness of breath or difficulty breathing. Patient denies measured and/or subjective temperature greater than 100.4F prior to today's visit. Patient denies travel on a cruise ship or to a country the [facility] currently lists as an affected area. Patient denies contact with known and/or suspected case of COVID-19. Ebola Screen: Patient denies exposure to infectious person. Patient denies travel to an Ebola-affected area in the 21 days before illness onset. Initial Sepsis Screen: Does the patient meet any 2 criteria? No. Patient's initial sepsis screen is negative. Does the patient have a suspected source of infection? No. Patient's initial sepsis screen is negative. Risk Assessment: Do you want to hurt yourself or someone else? Patient reports no desire to harm self or others. Onset of symptoms was January 2020. 11:39 Method Of Arrival: Wheelchair 11:39 Acuity: MELLO 4 ss Historical: - Allergies: 11:42 Aminophylline; ss 11:42 Cipro IV; ss 11:42 Iodinated Contrast Media - IV Dye; ss 11:42 Warfarin; ss - Home Meds: 11:42 Xarelto 20 mg Oral tab 1 tab once daily [Active]; ss - PMHx: 11:42 Alcoholism; Chronic pain; EDEMA; Hypertension; Rheumatoid Arthritis; Sleep Apnea; ss - PSHx: 11:42 Cholecystectomy; Knee surgery; Gastric Bypass; corneal transplant x5; ss - Immunization history:: Adult Immunizations up to date. - Social history:: Smoking status: Patient denies any tobacco usage or history of. Patient/guardian denies using alcohol, street drugs. - Family history:: not pertinent. Screenin:13 Abuse screen: Denies threats or abuse. Nutritional screening: No deficits noted. em Tuberculosis screening: No symptoms or risk factors identified. Fall Risk None identified. Assessment: 12:10 General: Appears in no apparent distress. comfortable, Behavior is calm, cooperative, em appropriate for age, Denies fever. Pain: Denies pain. Neuro: Level of Consciousness is awake, alert, obeys commands, Oriented to person, place, time, situation, Appropriate for age. Cardiovascular: Capillary refill < 3 seconds Patient's skin is warm and dry. Respiratory: Airway is patent Respiratory effort is even, unlabored, Respiratory pattern is regular, symmetrical. Derm: Skin is intact, is healthy with good turgor, central line noted to right groin, no drainage, redness noted Skin is pink, warm \T\ dry. Musculoskeletal: Capillary refill < 3 seconds, Range of motion: intact in all extremities. Vital Signs: 11:39 BP 111 / 80; Pulse 83; Resp 16; Temp 98.3(TE); Pulse Ox 100% on R/A; Weight 77.11 kg; ss Height 5 ft. 4 in. (162.56 cm); Pain 0/10; 11:39 Body Mass Index 29.18 (77.11 kg, 162.56 cm) ED Course: 11:29 Patient arrived in ED. am2 11:29 Brandon Rubalcava MD is Private Physician. am2 11:41 Triage completed. ss 11:42 Arm band placed on right wrist. 11:45 Ling Luz MD is Attending Physician. ma2 12:02 Andrea Mcfarlane RN is Primary Nurse. em 12:13 Bed in low position. Call light in reach. Side rails up X2. em 12:44 No provider procedures requiring assistance completed. Patient did not have IV access em during this emergency room visit. Administered Medications: No medications were administered Outcome: 12:26 Discharge ordered by . ma2 12:44 Discharged to home via wheelchair, with family. em 12:44 Condition: good 12:44 Instructed on discharge instructions, Demonstrated understanding of instructions, follow-up care. 12:45 Patient left the ED. em Signatures: Andrea Mcfarlane RN RN Courtney Rose RN RN Geneva Ruvalcaba am2 Alzahri, Mohammad, MD MD ma2
[2020-01-15 13:02] VITALS: BP 111/80; TEMP 98.3; O2SAT 100
== END 2020-01-15 12:45 | disposition home or self-care (01) ==
LOC: ER 11:26
DX: T80.218A Other infection due to central venous catheter, initial encounter (principal); I10 Essential (primary) hypertension; F10.20 Alcohol dependence, uncomplicated; G89.29 Other chronic pain; Z79.01 Long term (current) use of anticoagulants; Z88.1 Allergy status to other antibiotic agents; Z88.8 Allergy status to other drugs, medicaments and biological substances; Z91.041 Radiographic dye allergy status
CPT/HCPCS: 99281

== ENCOUNTER 2020-05-14 07:38 | Inpatient (IN) | payer MEDICARE ==
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
--- OUTSIDE RECORDS SUMMARY | 2020-05-14 07:49 | XMS REPORT | Continuity of Care Document ---
:1945 Author Organization [facility] t Address [address] [place] [address] Care Team Providers Name Role Phone Bernardo ROJAS, L Attending Clinician Demond De La Cruz Attending Clinician DR MISAEL Attending Clinician Unavailable DR MISAEL Admitting Clinician Unavailable Problems Condition Condition Condition Status Onset Resolution Last Treating Co mments Source Name Details Category Date Date Treatment Clinician Date Polyneurop Problem Active 2019-12-26 M emoria athy 01-25 23:23:13 l (disorder) 00:00: Ousmane n Polyneurop 00 athy (disorder) Active 01/25/2017 Problem 12/26/2019 [facility] Essential Problem Active 2016-2019-12-26 Me moria hypertensi 12-29 23:23:13 l on 00:00: Esdras (disorder) Essential 00 hypertensi on (disorder) Active 12/29/2016 Problem 12/26/2019 [facility] Glaucoma Problem Active 2019-12-26 Mem oria (disorder) 12-29 23:23:13 l Glaucoma 00:00: Ousmane n (disorder) 00 Active 12/29/2016 Problem 12/26/2019 [facility] Hypertensi Problem Resolve 2019-12-26 Memoria ve d 23:23:13 l disorder, Esdras systemic Hypertensi arterial ve (disorder) disorder, systemic arterial (disorder) Resolved Problem 12/26/2019 [facility] Syncope Problem Resolve 2019-12-26 Mem oria symptom d 23:23:13 l (disorder) Syncope Her skinner symptom (disorder) Resolved Problem 12/26/2019 [facility] Atrial Problem Active 2019-12-26 Memor ia fibrillati 23:23:13 l on Atrial [place] (disorder) fibrillati on (disorder) Active Problem 12/26/2019 [facility] Hypothyroi Problem Active 2019-12-26 M emoria dism 23:23:13 l (disorder) Ousmane n Hypothyroi dism (disorder) Active Problem 12/26/2019 [facility] Memory Problem Active 2019-12-26 Memor ia impairment 23:23:13 l (finding) Memory Marti nn impairment (finding) Active Problem 12/26/2019 [facility] Cerebrovas Problem Active 2019-12-26 M emoria cular 23:23:13 l accident Esdras (disorder) Cerebrovas cular accident (disorder) Active Problem 12/26/2019 [facility] History of Past Illness Condition Condition Condition Status Onset Resolution Last Treating Co mments Source Name Details Category Date Date Treatment Clinician Date Paresthesi Problem Resolve 2016-2019-12-26 2019-12-26 Memoria a d 12-29 23:23:13 23:23:13 l (finding) 00:00: Esdras Paresthesi 00 a (finding) Resolved 12/29/2016 Problem 12/26/2019 [facility] Allergies, Adverse Reactions, Alerts Allergy Allergy Status Severity Reaction(s) Onset Inactive Treating Comm ents Source Name Type Date Date Clinician acetamin acetamin Active Moderate Varinder brisa ophen-hy ophen-hy l drocodon drocodon Ousmane n e e ciproflo ciproflo Active Memori a xacin xacin l ophthalm ophthalm [place]e n ic ic Warfarin Warfarin Active Moderate Varinder brisa Sodium Sodium l Esdras iodine iodine Active Moderate Memoria l [place] contrast contrast Active Memori a media media l (iodine- (iodine- Ousmane n based) based) Social History Social Habit Start Date Stop Date Quantity Comments Source Social History 2015-04-30 2015-04-30 Padmini parker 11:21:33 11:21:33 Medications Ordered Filled Start Stop Current Ordering Indication Dosage Frequency Signature Comments Components Source Medication Medication Date Date Medication? Clinician (SIG) Name Name DULoxetine Yes = 1 cap, Mem oria 20 mg oral 4-21 PO, Daily, l delayed 20:10: # 90 cap, Marti nn release 00 2 capsule Refill(s), Pharmacy: [facility] #[id number] pregabalin 2020-0 Yes 100 mg = 1 M emoria 100 MG Oral 2-20 cap, PO, l Capsule 20:59: BID, # 60 Marti nn [Lyrica] 00 cap, 3 Refill(s), Pharmacy: [facility] #[id number] ARIPiprazol 2020-0 Yes 6 mg = 3 Me moria e 2 mg oral 2-20 tab, PO, l tablet 20:37: Daily, # [place] 00 90 tab, 0 Refill(s) ferrous 2020-0 Yes 325 mg = 1 Varinder brisa sulfate 325 2-20 tab, PO, l mg oral 20:37: Bedtime, 0 Herm paulina enteric 00 Refill(s) coated tablet bimatoprost 2020-0 Yes 1 drp, Varinder brisa 0.1 MG/ML 2-20 BOTH EYES, l Ophthalmic 20:37: Bedtime, # H ermann Solution 00 5 mL, 4 [Lumigan] Refill(s) diflupredna 2020-0 Yes 1 drp, Varinder brisa te 0.5 2-20 LEFT EYE, l MG/ML 20:37: QID, After Ousmane n Ophthalmic 00 14 days, Suspension taper dose [Durezol] as directed by physician. , # 5 mL, 0 Refill(s) metoprolol 2020-0 Yes 25 mg = 1 Me moria succinate 2-20 cap, PO, l 25 mg oral 20:37: QAM, 0 Marti nn capsule, 00 Refill(s) extended release Alendronic 2020-0 Yes 70 mg = 1 Me moria acid 70 MG 2-20 tab, PO, l Oral Tablet 20:37: Q7D, # 12 H ermann 00 tab, 0 Refill(s) pregabalin 2020-0 No 150 mg = 1 M emoria 150 MG Oral 1-27 cap, PO, l Capsule 21:36: BID, # 60 Marti nn [Lyrica] 00 cap, 0 Refill(s), called to pharmacy DULoxetine 2019-0 Yes = 1 cap, Mem oria 20 mg oral 9-23 PO, Daily, l delayed 19:05: # 90 cap, Marti nn release 06 1 capsule Refill(s), Pharmacy: [facility] #[id number] pregabalin 2019-0 Yes 150 mg = 1 M emoria 150 MG Oral 8 cap, PO, l Capsule 13:42: BID, # 60 Marti nn [Lyrica] 55 cap, 3 Refill(s), called to pharmacy Escitalopra Yes See Shaun means m 5 mg oral 5-01 Instructio l tablet 19:56: ns, 1 po [place] 00 qd, 0 Refill(s) pregabalin Yes 150 mg = 1 M emoria 150 MG Oral 5-01 cap, PO, l Capsule 19:52: BID, # 60 Marti nn [Lyrica] 22 cap, 3 Refill(s) pregabalin No 150 mg = 1 M emoria 150 MG Oral 9-04 cap, PO, l Capsule 18:15: BID, X 30 Marti nn [Lyrica] 47 day, # 60 cap, 3 Refill(s), given to patient Vital Signs Vital Name Observation Time Observation Value Comments Source Systolic (mm Hg) 2019-10-24 20:22:00 Varinder rial Esdras Diastolic (mm Hg) 2019-10-24 20:22:00 Mem orial [place] Heart Rate 2019-10-24 20:22:00 [facility] [place] Respitory Rate 2019-10-24 20:22:00 Memori al [place] Height 2019-10-24 20:22:00 157.48 cm [facility] Weight 2019-10-24 20:22:00 [facility] [place] BMI Calculated 2019-10-24 20:22:00 Memori al [place] Systolic (mm Hg) 2019-05-27 18:34:00 Varinder rial [place] Diastolic (mm Hg) 2019-05-27 18:34:00 Mem orial [place] Heart Rate 2019-05-27 18:34:00 [facility] [place] Respitory Rate 2019-05-27 18:34:00 Memori al [place] Height 2019-05-27 18:34:00 154.94 cm [facility] [place] Weight 2019-05-27 18:34:00 [facility] [place] BMI Calculated 2019-05-27 18:34:00 Memori al [place] Weight 2019-01-02 19:37:00 [facility] [place] BMI Calculated 2019-01-02 19:37:00 Memori al [place] Height 2019-01-02 19:37:00 154.94 cm [facility] [place] Systolic (mm Hg) 2019-01-02 19:37:00 Varinder rial [place] Diastolic (mm Hg) 2019-01-02 19:37:00 Mem orial [place] Heart Rate 2019-01-02 19:37:00 [facility] [place] Respitory Rate 2019-01-02 19:37:00 Memori al [place] Systolic (mm Hg) 2018-09-27 21:47:00 Varinder rial [place] Diastolic (mm Hg) 2018-09-27 21:47:00 Mem orial [place] Heart Rate 2018-09-27 21:47:00 [facility] [place] Respitory Rate 2018-09-27 21:47:00 Memori al [place] Height 2018-09-27 21:47:00 157.48 cm [facility] [place] Weight 2018-09-27 21:47:00 [facility] [place] BMI Calculated 2018-09-27 21:47:00 Memori al [place] BMI Calculated 2018-08-01 21:07:00 Memori al [place] Weight 2018-08-01 21:07:00 [facility] [place] Height 2018-08-01 21:07:00 160.02 cm [facility] Heart Rate 2018-08-01 21:07:00 [facility] [place] Systolic (mm Hg) 2018-08-01 21:07:00 Varinder rial [place]dr[place] Diastolic (mm Hg) 2018-08-01 21:07:00 Mem orial [place] Procedures Procedure Date / Time Performed Performing Clinician Sour e Abdominal hysterectomy [facility] [place] Corneal transplant [facility] Gastric bypass [facility] [place] Total knee replacement [facility] [place] Encounters Start End Encounter Admission Attending Care Care Encounter Source Date/Time Date/Time Type Type Clinicians Facility Department ID 2020-05-13 2020-05-13 [facility] [id number] 15:48:31 23:59:00 Encounter [facility] [id number] Surgical [id number] Specialti [id number] es 809 Henrik 2019-12-24 2019-12-24 Outpatient MINERVA De La Cruz [id number] 14:45:00 23:59:59 Uday Lagos 2019-12-24 2019-12-24 Outpatient MINERVA De La Cruz [id number] 13:45:00 13:45:00 Uday 15 [facility] 2019-10-28 2019-10-28 Office Bernardo VTSAMANTHA [id number] 15:51:41 16:37:20 Visit [facility] [id number] Surgical [id number] Special [id number] Lauren Patterson 2019-10-24 2019-10-24 Outpatient Anderskulwant, MHMISCHER MHMISCHER [id number] 14:15:00 23:59:59 Uday 14 [facility] 2019-09-17 2019-09-17 Outpatient Anderskulwant, MHMISCHER MHMISCHER [id number] 13:00:00 13:00:00 Uday 13 [facility] 2019-08-20 2019-08-20 Outpatient Anderskulwant, MHMISCHER MHMISCHER [id number] 14:00:00 14:00:00 Uday 12 [facility] 2019-05-27 2019-05-27 Outpatient Anderskulwant, MHMISCHER MHMISCHER [id number] 13:15:00 23:59:59 Uday 11 [facility] 2019-01-02 2019-01-02 Outpatient Anderskulwant, MHMISCHER MHMISCHER [id number] 14:30:00 23:59:59 Uday 10 [facility] 2018-09-27 2018-09-27 Outpatient Jono, MHMISCHER MHMISCHER [id number] 15:30:00 23:59:59 Uday 07 [facility] 2018-08-01 2018-08-01 Outpatient Anderskulwant, MHMISCHER MHMISCHER [id number] 15:00:00 23:59:59 Uday 05 [facility] 2017-12-01 2017-12-01 Emergency E MISAEL [facility] [id number] 15:37:00 17:48:00 Critical access hospital Results Test Description Test Time Test Comments Results Result [facility] e Comments CT ABDOMEN AND 2017-12-01 CT abdomen and pelvis PELVIS W/O 17:07:47 without contrastLocation CONTRAST Code: [id number] HISTORY: R10.2: PELVIC AND PERINEAL PAINCOMPARISON: NoneTechnique: [...] Heparin. Order Code is ANTI-XA COMPREHENSIVE METABOLIC [id number] 16:59:00 Test Item Value Reference Range Interpretation [...] IU/L <=78 XR FEMUR LEFT AP & [id number] 16:58:20Left femur, 4 viewsLocation Code: B7Jyiquwed history: R10.2: PELVIC AND PERINEAL PAINComment: AP andlateral views of the left femur demonstrate no displacedfracture or malalignment. Left total knee arthroplasty is intact. The softtissues are unremarkable.Impression:No acute radiographic abnormality.[id number] 16:46:00 Test Item Value Reference Range Interpretation [...]
[2020-05-14] MEDS ORDERED: FUROSEMIDE 40 MG/4 ML VIAL ONE (08:32)
[2020-05-14] MEDS ORDERED: FUROSEMIDE 20 MG/ 2ML VIAL ONE (08:32)
[2020-05-14 08:46] LABS: Absolute Lymphocytes (CBC) 1.5 K/uL (0.7-4.9); Basophils % 0.7 % (0-1.3); Hematocrit 36.3 % (36.0-45.0); Lymphocytes % 28.5 % (15.3-44.8); MPV 10.3 fL (7.6-11.3); RBC Red Blood Cell Count 3.91 M/uL (3.86-4.86)
[2020-05-14 08:47] LABS: Protime INR 1.37
[2020-05-14 09:09] LABS: ALT/SGPT 21 U/L (12-78); AST/SGOT 27 U/L (15-37); Albumin 3.5 g/dL (3.4-5.0); Alkaline Phosphatase 139 U/L (45-117); BUN Blood Urea Nitrogen 15 mg/dL (7-18); Bicarbonate 33 mmol/L (21-32); Bilirubin Direct 0.2 mg/dL (0-0.2); Bilirubin Total 0.5 mg/dL (0.2-1.0); Glucose Level 91 mg/dL (74-106); Magnesium 2.2 mg/dL (1.8-2.4); NT PRO-BNP 1222 pg/mL (<450); Potassium 4.1 mmol/L (3.5-5.1); Sodium Level 141 mmol/L (136-145); Troponin (Emerg Dept Use Only) < 0.02 ng/mL (0.0-0.045)
--- NOTE | 2020-05-14 09:17 | ER ---
Nurse's Notes [facility] Name: Germaine Amador Age: 75 yrs Sex: Female : 1945 Arrival Date: 05/14/2020 Time: 07:41 Bed 17 Private MD: Brandon Rubalcava C Diagnosis: Acute combined systolic (congestive) and diastolic (congestive) heart failure Presentation: 05/14 07:59 Chief complaint: Patient states: SOB for 8 days, legs swelling for 2 weeks. Coronavirus iw screen: At this time, the client does not indicate any symptoms associated with coronavirus-19. Ebola Screen: Patient negative for fever greater than or equal to 101.5 degrees Fahrenheit, and additional compatible Ebola Virus Disease symptoms Patient denies exposure to infectious person. Patient denies travel to an Ebola-affected area in the 21 days before illness onset. No symptoms or risks identified at this time. Risk Assessment: Do you want to hurt yourself or someone else? Patient reports no desire to harm self or others. Onset of symptoms was May 06, 2020. 07:59 Method Of Arrival: Ambulatory iw 07:59 Acuity: MELLO 3 iw 12:56 Initial Sepsis Screen: Does the patient meet any 2 criteria? No. Patient's initial jr10 sepsis screen is negative. Does the patient have a suspected source of infection? No. Patient's initial sepsis screen is negative. Historical: - Allergies: 08:01 Aminophylline; iw 08:01 Cipro IV; iw 08:01 Iodinated Contrast Media - IV Dye; iw 08:01 Warfarin; iw - PMHx: 08:01 Alcoholism; Chronic pain; EDEMA; Hypertension; Rheumatoid Arthritis; Sleep Apnea; iw - PSHx: 08:01 Cholecystectomy; Knee surgery; Gastric Bypass; corneal transplant x5; iw - Immunization history:: Adult Immunizations up to date. - Social history:: Smoking status: unknown. Screenin:36 Abuse screen: Denies threats or abuse. Denies injuries from another. Nutritional jr10 screening: No deficits noted. Tuberculosis screening: No symptoms or risk factors identified. Fall Risk No fall in past 12 months (0 pts). No secondary diagnosis (0 pts). IV access (20 points). Ambulatory Aid- Crutches/Cane/Walker (15 pts). Gait- Weak (10 pts.). Mental Status- Oriented to own ability (0 pts). Assessment: 08:40 General: Appears uncomfortable, Behavior is appropriate for age. Pain: Complains of jr10 pain in right leg and left leg Pain does not radiate. Pain currently is 8 out of 10 on a pain scale. Quality of pain is described as aching, Pain began 8 days ago Is continuous, Alleviated by nothing. Aggravated by increased activity, weight bearing. Neuro: No deficits noted. Cardiovascular: Denies chest pain, Patient's skin is warm and dry. Pulses are all present. Edema is 2+ to left midcalf, left ankle, left foot, left toes, right midcalf, right ankle, right foot and right toes pitting to left midcalf, left ankle, left foot, left toes, right midcalf, right ankle, right foot and right toes Rhythm is regular. Respiratory: Reports shortness of breath at rest on exertion Airway is patent Respiratory effort is even, unlabored, Respiratory pattern is regular, symmetrical, Breath sounds are clear bilaterally. the patient has moderate shortness of breath. 08:40 GI: No deficits noted. No signs and/or symptoms were reported involving the jr10 gastrointestinal system. : No deficits noted. No signs and/or symptoms were reported regarding the genitourinary system. EENT: No deficits noted. No signs and/or symptoms were reported regarding the EENT system. Derm: Skin has blisters on gautam lower shins, pt has redness with serosanguinous fluid drainage noted. Musculoskeletal: Swelling present in right leg and left leg Reports weakness in right leg and left leg. 09:00 Reassessment: bedside commode placed in room and pt walker placed at bedside for jr10 comfort and convenience. 10:00 Reassessment: pt noted to have episode of incontinence, cleaned of all wet clothes, jr10 fresh brief provided with fresh clean gown and linens; pt states that she was unable to get to the commode fast enough; will inquire about order for ashford for accurate I\T\O; will continue to monitor and assess; call light placed within reach. 11:00 Reassessment: Patient and/or family updated on plan of care and expected duration. Pain jr10 level reassessed. Patient is alert, oriented x 3, equal unlabored respirations, skin warm/dry/pink. 12:06 Reassessment: Patient and/or family updated on plan of care and expected duration. Pain jr10 level reassessed. Patient is alert, oriented x 3, equal unlabored respirations, skin warm/dry/pink. Patient states feeling better. Vital Signs: 08:01 BP 136 / 76; Pulse 53; Resp 18; Pulse Ox 100% on R/A; iw 08:37 BP 128 / 62; Pulse 63; Resp 20; Pulse Ox 97% on R/A; jr10 09:04 BP 133 / 75; Pulse 64; Resp 20; Pulse Ox 100% on R/A; jr10 09:53 BP 145 / 82; Pulse 64; Resp 20; Pulse Ox 100% on R/A; jr10 10:30 BP 156 / 70; Pulse 57; Resp 20; Pulse Ox 98% on R/A; jr10 11:30 BP 136 / 75; Pulse 55; Resp 20; Pulse Ox 99% ; jr10 11:53 BP 148 / 68; Pulse 54; Resp 20; Pulse Ox 99% on R/A; jr10 12:50 BP 119 / 82; Pulse 59; Resp 18; Pulse Ox 100% on R/A; jr10 ED Course: 07:41 Patient arrived in ED. ag5 07:41 Brandon Rubalcava MD is Private Physician. ag5 07:47 [facility]ovar [facility]. jr8 07:47 Tramaine Dominguez MD is Attending Physician. jr8 08:00 Triage completed. iw 08:18 Victoria Keys, RN is Primary Nurse. jr10 08:36 Patient has correct armband on for positive identification. Placed in gown. Bed in low jr10 position. Call light in reach. Side rails up X2. is architect on. Pulse ox on. NIBP on. 08:36 No provider procedures requiring assistance completed. Inserted saline lock: 20 gauge jr10 in right forearm, using aseptic technique. IV is patent, is intact, with good blood return, Flushed. 08:45 Arm band placed on. jr10 09:17 Brandon Ruablcava MD is Hospitalizing Provider. jr8 09:20 EKG done, by ED staff, reviewed by Junior LEON. dh3 09:49 XRAY Chest (1 view) In Process Unspecified. EDMS 10:30 [place] cath inserted, using sterile technique, 16 Fr., by ED staff, balloon inflated, to jr10 gravity drainage, urine specimen collected. other started via assistant in nursing with instructor returned clear yellow urine. Patient tolerated well. 12:55 Patient admitted, IV remains in place. intact, No redness/swelling at site. jr10 Administered Medications: 08:35 Drug: Lasix 60 mg Route: IVP; Site: right forearm; jr10 11:54 Follow up: Response: No adverse reaction jr10 Output: 11:54 Urine: 2000ml (Ash[place]); Total: 2000ml. jr10 Outcome: 09:17 Decision to Hospitalize by Provider. jr8 12:56 Admitted to Med/surg accompanied by tech, via wheelchair, room 223, with chart, Report jr10 called to SUSAN Rivas 12:56 Condition: improved 12:56 Instructed on the need for admit. 13:06 Patient left the ED. jr10 Signatures: Dispatcher [employer] EDAlisa Mccullough, RN RN Junior Chirinos PA PA jr8 Shaylee Roberts 3 Jorge Luis Jay banner [facility] Victoria Keys RN RN jr10
--- NOTE | 2020-05-14 09:18 | EDPHYS ---
Physician Documentation [facility] Name: Germaine Amador Age: 75 yrs Sex: Female : 1945 Arrival Date: 05/14/2020 Time: 07:41 Bed 17 Private MD: Brandon Rubalcava C ED Physician Tramaine Dominguez HPI: 05/14 08:07 This 75 yrs old Female presents to ER via Ambulatory with complaints of jr8 Breathing Difficulty, Leg Problem. 08:07 The patient has shortness of breath at rest. Onset: The symptoms/episode began/occurred jr8 gradually, 2 week(s) ago. Duration: The symptoms are continuous, and are steadily getting worse. The patient's shortness of breath is aggravated by light activity, supine position. Associated signs and symptoms: Pertinent positives: lower extremity edema. Severity of symptoms: At their worst the symptoms were moderate in the emergency department the symptoms are unchanged. The patient has not experienced similar symptoms in the past. The patient has not recently seen a physician. Historical: - Allergies: 08:01 Aminophylline; iw 08:01 Cipro IV; iw 08:01 Iodinated Contrast Media - IV Dye; iw 08:01 Warfarin; iw - PMHx: 08:01 Alcoholism; Chronic pain; EDEMA; Hypertension; Rheumatoid Arthritis; Sleep Apnea; iw - PSHx: 08:01 Cholecystectomy; Knee surgery; Gastric Bypass; corneal transplant x5; iw - Immunization history:: Adult Immunizations up to date. - Social history:: Smoking status: unknown. ROS: 08:07 Eyes: Negative for injury, pain, redness, and discharge, ENT: Negative for injury, jr8 pain, and discharge, Neck: Negative for injury, pain, and swelling, Abdomen/GI: Negative for abdominal pain, nausea, vomiting, diarrhea, and constipation, Back: Negative for injury and pain, MS/Extremity: Negative for injury and deformity, Skin: Negative for injury, rash, and discoloration, Neuro: Negative for headache, weakness, numbness, tingling, and seizure. 08:07 Cardiovascular: Positive for edema, orthopnea, paroxysmal nocturnal dyspnea. 08:07 Respiratory: Positive for dyspnea on exertion, orthopnea. Exam: 08:07 Eyes: Pupils equal round and reactive to light, extra-ocular motions intact. Lids and jr8 lashes normal. Conjunctiva and sclera are non-icteric and not injected. Cornea within normal limits. Periorbital areas with no swelling, redness, or edema. ENT: Nares patent. No nasal discharge, no septal abnormalities noted. Tympanic membranes are normal and external auditory canals are clear. Oropharynx with no redness, swelling, or masses, exudates, or evidence of obstruction, uvula midline. Mucous membranes moist. Neck: Trachea midline, no thyromegaly or masses palpated, and no cervical lymphadenopathy. Supple, full range of motion without nuchal rigidity, or vertebral point tenderness. No Meningismus. Respiratory: Lungs have equal breath sounds bilaterally, clear to auscultation and percussion. No rales, rhonchi or wheezes noted. No increased work of breathing, no retractions or nasal flaring. Abdomen/GI: Soft, non-tender, with normal bowel sounds. No distension or tympany. No guarding or rebound. No evidence of tenderness throughout. Back: No spinal tenderness. No costovertebral tenderness. Full range of motion. Skin: Warm, dry with normal turgor. Normal color with no rashes, no lesions, and no evidence of cellulitis. MS/ Extremity: Pulses equal, no cyanosis. Neurovascular intact. Full, normal range of motion. Neuro: Awake and alert, GCS 15, oriented to person, place, time, and situation. Cranial nerves II-XII grossly intact. Motor strength 5/5 in all extremities. Sensory grossly intact. Cerebellar exam normal. Normal gait. 08:07 Cardiovascular: Rate: bradycardic, Rhythm: irregular, Pulses: Pulses are 2+ in right radial artery and left radial artery. Heart sounds: normal, normal S1and S2, no S3 or S4, no murmur, no rub, no gallop, Edema: 4+ edema to level of left midcalf, left ankle, left foot, right midcalf, right ankle and right foot, JVD: is not appreciated. 09:22 ECG was reviewed by the Attending Physician. jr8 Vital Signs: 08:01 BP 136 / 76; Pulse 53; Resp 18; Pulse Ox 100% on R/A; iw 08:37 BP 128 / 62; Pulse 63; Resp 20; Pulse Ox 97% on R/A; jr10 09:04 BP 133 / 75; Pulse 64; Resp 20; Pulse Ox 100% on R/A; jr10 09:53 BP 145 / 82; Pulse 64; Resp 20; Pulse Ox 100% on R/A; jr10 10:30 BP 156 / 70; Pulse 57; Resp 20; Pulse Ox 98% on R/A; jr10 11:30 BP 136 / 75; Pulse 55; Resp 20; Pulse Ox 99% ; jr10 11:53 BP 148 / 68; Pulse 54; Resp 20; Pulse Ox 99% on R/A; jr10 12:50 BP 119 / 82; Pulse 59; Resp 18; Pulse Ox 100% on R/A; jr10 MDM: 07:47 Patient medically screened. jr8 09:16 Data reviewed: vital signs, nurses notes, lab test result(s), EKG, radiologic studies, jr8 plain films. Data interpreted: Pulse oximetry: on room air is 100 %. Interpretation: normal. Counseling: I had a detailed discussion with the patient and/or guardian regarding: the historical points, exam findings, and any diagnostic results supporting the discharge/admit diagnosis, lab results, radiology results, the need for further work-up and treatment in the hospital. Physician consultation: A Gini ROJAS was called at 09:17, was contacted at 09:17, regarding admission, to the telemetry unit. consult, patient's condition. 05/14 07:57 Order name: Basic Metabolic Panel; Complete Time: 09:13 05/14 07:57 Order name: CBC with Diff; Complete Time: 08:59 05/14 07:57 Order name: LFT's; Complete Time: 09:05/14 07:57 Order name: Magnesium; Complete Time: 09:13 05/14 07:57 Order name: NT PRO-BNP; Complete Time: 09:13 05/14 07:57 Order name: PT-INR; Complete Time: 08:59 05/14 07:57 Order name: Troponin (emerg Dept Use Only); Complete Time: 09:13 05/14 07:57 Order name: XRAY Chest (1 view); Complete Time: 10:03 05/14 07:57 Order name: EKG; Complete Time: 07:58 05/14 07:57 Order name: Cardiac monitoring; Complete Time: 08:19 05/14 07:58 Order name: TSH; Complete Time: 09:13 jr8 05/14 07:58 Order name: T4 Free; Complete Time: 09:13 8 05/14 11:22 Order name: CONS Physician Consult EDPR 05/14 07:57 Order name: EKG - Nurse/Tech; Complete Time: 08:36 jr8 05/14 07:57 Order name: IV Saline Lock; Complete Time: 08:36 jr8 05/14 07:57 Order name: Labs collected and sent; Complete Time: 08:36 8 05/14 07:57 Order name: O2 Per Protocol; Complete Time: 08:19 jr8 05/14 07:57 Order name: O2 Sat Monitoring; Complete Time: : EC:22 Rate is 52 beats/min. Rhythm is irregularly irregular, A fib. QRS [place] is Normal. QRS jr8 interval is normal at 84 msec. QT interval is normal at 425 msec. Q waves are Present in leads V1, V2. T waves are Inverted in lead III. No ST changes noted. Clinical impression: Atrial Fibrillation and Septal SD - age indeterminate. Interpreted by me. Reviewed by me. Administered Medications: 08:35 Drug: Lasix 60 mg Route: IVP; Site: right forearm; jr10 11:54 Follow up: Response: No adverse reaction jr10 Disposition: 16:28 Co-signature as Attending Physician, Tramaine Dominguez MD. rn Disposition: 05/14/20 09:17 Hospitalization ordered by Brandon Rubalcava for Inpatient Admission. Preliminary diagnosis is Acute combined systolic (congestive) and diastolic (congestive) heart failure. - Bed requested for Telemetry/MedSurg (Inpatient). - Status is Inpatient Admission. jr10 - Condition is Stable. - Problem is new. - Symptoms have improved. Signatures: Dispatcher [employer] EDPR Rayne Espino Irene, RN RN iw Nieto, Roman, MD MD rn Roszak, Josh, PA PA jr8 Victoria Keys RN RN jr10 Corrections: (The following items were deleted from the chart) 09:24 09:22 Rate is 52 beats/min. Rhythm is irregularly irregular, A fib. QRS [place] is Normal. jr8 QRS interval is normal at 84 msec. QT interval is normal at 425 msec. Q waves are Present in leads V1, V2. T waves are Inverted in lead III. No ST changes noted. Clinical impression: Septal SD - age indeterminate. Interpreted by me. Reviewed by me. jr8 12:21 09:17 Hospitalization Ordered by A Gini ROJAS for Inpatient Admission. Preliminary bd diagnosis is Acute combined systolic (congestive) and diastolic (congestive) heart failure. Bed requested for Telemetry/MedSurg (Inpatient). Status is Inpatient Admission. Condition is Stable. Problem is new. Symptoms have improved. jr8 13:06 12:21 05/14/2020 09:17 Hospitalization Ordered by A Gini ROAJS for Inpatient Admission. jr10 Preliminary diagnosis is Acute combined systolic (congestive) and diastolic (congestive) heart failure. Bed requested for Telemetry/MedSurg (Inpatient). Status is Inpatient Admission. Condition is Stable. Problem is new. Symptoms have improved. bd
--- NOTE | 2020-05-14 10:01 | RAD REPORT ---
EXAM DESCRIPTION: Danis Single View05/14/2020 9:49 am CLINICAL HISTORY: Shortness of breath COMPARISON: February 2020 FINDINGS: Right parahilar opacity. Left lung appears clear. The heart is mildly enlarged IMPRESSION: Right parahilar opacity probably pneumonia. This should be followed with x-ray until it is clear to help exclude an underlying mass
[2020-05-14] MEDS ORDERED: ONDANSETRON 4 MG/2 ML VIAL IV PRN (13:39)
[2020-05-14] MEDS ORDERED: MORPHINE 2 MG/ML SYR IV PRN (13:39)
[2020-05-14] MEDS ORDERED: ALBUTEROL 2.5 MG/3 ML NEB SOL NEB PRN ×2 (13:39→17:00)
--- NOTE | 2020-05-14 15:57 | RAD REPORT ---
EXAM DESCRIPTION: CT - Thorax Wo Con - 05/14/2020 3:12 pm CLINICAL HISTORY: abnormal chest xray, shortness of breath COMPARISON: Thorax Wo Con dated 02/20/2020; Chest Single View dated 05/14/2020 TECHNIQUE: Axial 5 mm thick images of the chest were obtained without IV contrast. All CT scans are performed using dose optimization technique as appropriate and may include automated exposure control or mA/KV adjustment according to patient size. FINDINGS: No mass or infiltrate in the lung parenchyma. No pleural thickening or pleural effusion. N o pneumothorax. Plain film finding may be the affects of shallow inspiration and body habitus. Patien t may have had a mild failure or volume overload that has improved since the earlier examination. No abnormal mediastinal or hilar masses or lymphadenopathy seen. No gross aortic or pulmonary artery finding suspected. Assessment is limited in the absence of IV contrast. No cardiomegaly or pericardi al effusion. No chest wall mass or abnormal axillary lymphadenopathy. IMPRESSION: No pneumonia or acute lung parenchymal finding. The recent plain film finding was likely a summation artifact created by low lung volumes, body habit us and possibly a mild failure or volume overload that has improved in the 6 hour since prior imaging . No suspicious or worrisome findings on this study.
--- NOTE | 2020-05-14 16:46 | CON ---
Date of Consultation: 05/14/2020 Reason For Consultation: Congestive heart failure. History Of Present Illness: A 75-year-old female comes in to the emergency room with worsening lower extremity edema, shortness of breath and orthopnea. No chest pain. She claimed that symptoms start ed about 10 days prior to presentation and kept worsening and she had severe difficulty breathing. U giles arrival to the emergency room, she found to be in significant fluid overload condition. The shmuel ent is not known to have any history of coronary artery disease or congestive heart failure. She has history of hypertension, but no history of diabetes. Past Medical History: Hypertension, no known cardiac history reported by the patient, history of rhe umatoid arthritis, sleep apnea. Past Surgical History: Cholecystectomy surgery and gastric bypass surgery. Medications: Refer to reconciliation sheet for detailed list. Allergies: ACETAMINOPHEN, CIPRO, AND HYDROCODONE. Social History: Does not smoke. No use of drugs. Family History: No premature coronary artery disease or cancer. Review of Systems: All systems reviewed and they were negative except as mentioned in the HPI. Physical Examination: Vital Signs: Temperature is 96.9, pulse is 53, breathing is 18, blood pressure is 148/68, saturating 99%. General: A pleasant elderly female, in no apparent distress. Head and Neck: Pupils are equal, react to light. Intact eye movements. No JVD. No cervical lympha denopathy. Neck is supple. Thyroid is not enlarged. Lungs: Faint crackles in bases. No accessory muscle use or muscle retraction. Heart: Irregular. No extra sounds. Abdomen: Soft, nontender. Bowel sounds positive. No organomegaly. No masses or hernia. No rigidi ty or rebound. Extremities: 3+ pitting edema bilaterally. No clubbing, cyanosis. Intact pulses. Skin: No rashes. Neurologic: Alert, awake, oriented x3. No acute focal deficits appreciated. Lymph Nodes: No cervical or axillary lymphadenopathy. Investigations: EKG reported to be atrial fibrillation. I was unable to find a copy for the EKG for interpretation. Her sodium is 141, creatinine 0.79, glucose 91. Troponin less than 0.02. NT-proBN P is 1222. TSH is 6. The hemoglobin is 12.0. The CT scan of the chest without contrast show no pne umonia or acute abnormalities. Mild fluid overload is present. Assessment And Plan: 1.Acute heart failure exacerbation. The patient is not known to have any cardiac history per her re port. I will discuss this further with her primary care physician. Recommend IV Lasix 40 mg q.12 ho urs. Monitor BUN, creatinine, electrolytes, and please obtain an echocardiogram to further evaluate the heart function. 2.Reported atrial fibrillation. The patient is on Xarelto and metoprolol. Heart rate is controlled . Obtain echo. If EF is low, further recommendations to follow based on that. 3.Hypertension. Recommend to keep systolic blood pressure below 140 to reduce afterload due to sondra estive heart failure. I appreciate the courtesy of this consultation. /YEISON Voice ID: [id number] Report ID: [id number]
[2020-05-14] MEDS: FUROSEMIDE 20 MG/ 2ML VIAL IV SCH (17:00)
[2020-05-14] MEDS: RIVAROXABAN 20 MG TABLET PO SCH (17:00)
--- NOTE | 2020-05-14 21:53 | HP ---
Date of Admission: 05/14/2020 Chief Complaint: Leg swelling, shortness of breath. History Of Present Illness: This is a 75-year-old very pleasant female patient who was evaluated by me via tele visit on 05/12/2020, and at that time, the patient was complaining of leg swelling, but she denied any shortness of breath, PND, orthopnea type of complaints. Yesterday, the patient's called office and reported that the patient did not report any shortness of breath problem, but she was actually having such complaints, and she was advised to come to the emergency room, but she did not come to ER until this morning. After she was evaluated in the ER this morning, she was admitted to the hospital with congestive heart failure problem. The patient received Lasix in the emergency room. I saw her this evening. She was lying in bed, sleeping, easily arousable, not in any distress, and reported that her shortness of breath complaints had improved. Allergies: TO IODINE, CIPRO, AND HYDROCODONE. Medications: List reviewed. Review of Systems: Respiratory: As mentioned above. Cardiovascular: As mentioned above. Eyes: Impaired vision. All other systems reviewed and negative. Past Medical History: Significant for peripheral neuropathy, glaucoma, allergic rhinitis, hypothyroidism, impaired fasting glucose, hypertension, hyperlipidemia, coronary artery disease, chronic atrial fibrillation, osteoarthritis at multiple sites, anxiety, depression, obstructive sleep apnea. Past Surgical History: Cornea transplant, cholecystectomy, rectocele repair, hernia repair, hysterectomy, cystocele repair, shoulder surgery, hip surgery, femur fracture surgery of left femur in January 2020. Family History: Father had COPD and coronary artery disease. Mother had coronary artery disease and hypertension. Sister with diabetes. Social History: Negative for smoking or alcohol use. Physical Examination: Vital signs: Height 5 feet, 4 inches, weight 172 pounds, temperature 97.4F, pulse 67, blood pressure 160/86, respiratory rate 18, oxygen saturation 95%. General: Awake, alert, oriented, not in distress. HEENT: Head atraumatic, normocephalic. Conjunctivae nonerythematous. Sclerae white. Mouth, no thrush or edema noted. Ears/Nose, no mass, lesion, discharge noted. Neck: Supple. No JVD, lymph nodes, bruit, thyromegaly noted. Lungs: Bilateral good equal air entry. Clear to auscultation. No rhonchi. Presence of some basal rales, not in any distress. Heart: Normal heart sounds, no murmur or gallop. Abdomen: Soft, bowel sounds normal. No guarding, rigidity, tenderness, mass, hepatosplenomegaly, distention, or bruit noted. Extremities: Bilateral grade 2 pedal edema. No calf tenderness. Skin: No rash, ulcer, cellulitis. Lymphatics: No lymph node enlargement in neck, supraclavicular, infraclavicular region. Neuro: No focal neurological deficit. Chest: Unremarkable. External Genitalia: Deferred. Rectal: Deferred. Laboratory Data: Chest x-ray shows right perihilar opacity. Troponin less than 0.02. TSH 6.02. BNP 1222. Liver function tests normal. Glucose 91. Sodium 141, potassium 4.1, chloride 106, bicarb 33, BUN 15, creatinine 0.79. White count 5.4, hemoglobin 12, platelets 176. Impression: 1. Congestive heart failure. 2. Hypertension. 3. Hyperlipidemia. 4. Chronic atrial fibrillation. 5. Peripheral neuropathy. 6. Osteoarthritis, multiple sites. 7. Hypothyroidism. 8. Impaired fasting glucose. 9. Allergic rhinitis. 10. Glaucoma. 11. Coronary artery disease. Plan: We will admit the patient to hospital for further evaluation and management of this problem. The patient is appropriate for inpatient and is expected to spend 2 midnights in hospital. We will continue home medications per order. We will continue her Lasix as per order. Monitor electrolytes and renal function. I will see her tomorrow morning for followup. Echocardiogram was ordered. CAT scan of the chest was ordered and I will see her tomorrow morning for followup. Details and plan of treatment discussed with the patient. DVT prophylaxis will be given as Lovenox. RYAN/MODL Voice ID: [id number] MTDD
[2020-05-14] MEDS: ATORVASTATIN 40 MG TAB PO SCH (22:24)
[2020-05-14] MEDS: METOPROLOL XL 25 MG TAB PO SCH (22:24)
[2020-05-15 04:26] LABS: Absolute Lymphocytes (CBC) 1.3 K/uL (0.7-4.9); Basophils % 0.7 % (0-1.3); Hematocrit 34.9 % (36.0-45.0); Lymphocytes % 25.7 % (15.3-44.8); MPV 10.9 fL (7.6-11.3); RBC Red Blood Cell Count 3.77 M/uL (3.86-4.86)
[2020-05-15 04:30] LABS: Potassium 3.9 mmol/L (3.5-5.1)
[2020-05-15] MEDS: LEVOTHYROXINE SOD 0.05 MG TABLET PO SCH (05:30)
[2020-05-15] MEDS: METOPROLOL XL 25 MG TAB PO SCH ×2 (09:02→22:04)
[2020-05-15] MEDS: FUROSEMIDE 20 MG/ 2ML VIAL IV SCH ×2 (09:03→17:24)
--- NOTE | 2020-05-15 10:29 | PN ---
Date of Progress Note: 05/15/2020 Subjective: The patient was seen this morning for followup, lying in bed, not in any distress. Over all feels better. Denies any shortness of breath overnight. No chest pain. Leg swelling is better. Objective: Vital Signs: Reviewed. HEENT: Unremarkable. Lungs: Clear to auscultation. Heart: Sounds normal. Abdomen: Soft. Bowel sounds normal. No guarding, rigidity, tenderness, distention. Extremities: Bilateral leg edema present, but better compared to last night. Laboratory Data: White count 5, hemoglobin 11.8, platelets 174. Sodium 143, potassium 3.9, chloride 104, bicarb 36, BUN 15, creatinine 0.70, glucose 90. Cardiac enzymes; troponin less than 0.02 x3. ProBNP this morning 950. Impression: 1.Congestive heart failure. 2.Hypertension. 3.Atrial fibrillation. 4.Abnormal chest x-ray. Plan: CT scan of the chest was done yesterday, did not show any lung mass or any hilar mass. No acu te lung findings noted on the CAT scan. The patient's condition overall is better. She is respondin g well to diuretic therapy and we will go ahead and wait for the echocardiogram results and then we w ill decide about possible discharge either later today or tomorrow. Details were discussed with the patient and I also called patient's and d etails were discussed with him as well.- RYAN/MODL Voice ID: [id number] Report ID: [id number]
--- NOTE | 2020-05-15 11:42 | ECHO ---
HEIGHT: 5 ft 4 in WEIGHT: 174 lb 8 oz DATE OF STUDY: 05/15/[address]: Nir Tovar 2-DIMENSIONAL: YES M.MODE: YES DOPPLER: YES COLOR FLOW: YES TDS: NO PORTABLE: NO DEFINITY: NO BUBBLE STUDY: NO DIAGNOSIS: CONGESTIVE HEART FAILURE CARDIAC HISTORY: CATHERIZATION: NO SURGERY: NO PROSTHETIC VALVE: NO PACEMAKER: NO MEASUREMENTS (cm) DIASTOLIC (NORMALS) SYSTOLIC (NORMALS) IVSd 1.1 (0.6-1.2) LA Diam 4.0 (1.9-4.0) LVEF 66% LVIDd 4.3 (3.5-5.7) LVIDs 2.8 (2.0-3.5) %FS 36% LVPWd 1.2 (0.6-1.2) Ao Diam 2.8 (2.0-3.7) 2 DIMENSIONAL ASSESSMENT: RIGHT ATRIUM: NORMAL LEFT ATRIUM: NORMAL RIGHT VENTRICLE: NORMAL LEFT VENTRICLE: NORMAL TRICUSPID VALVE: NORMAL MITRAL VALVE: NORMAL PULMONIC VALVE: NORMAL AORTIC VALVE: NORMAL PERICARDIAL EFFUSION: NONE AORTIC ROOT: NORMAL LEFT VENTRICULAR WALL MOTION: NORMAL EJECTION FRACTION. DOPPLER/COLOR FLOW: MILD TRICUSPID REGURGITATION. COMMENTS: MILD TRICUSPID REGURGITATION. MILD DECREASED LEFT VENTRICULAR COMPLIANCE - GRADE I DIASTOLIC DYSFUNCTION. NORMAL EJECTION FRACTION. NO EFFUSION. TECHNOLOGIST: VICENTE UGTIERREZ
[2020-05-15] MEDS: TRAMADOL HCL 50 MG TAB PO SCH ×2 (14:00→21:00)
[2020-05-15] MEDS: PREDNISOLONE ACETATE OPTH SCH ×2 (17:00→21:00)
[2020-05-15] MEDS: RIVAROXABAN 20 MG TABLET PO SCH (17:25)
[2020-05-15] MEDS: HOME MED 1 EA UNK (Brimonidine Tartrate/Timolol [Combigan 0.2%-0.5% Eye Drops] 1 GTT) OPTH SCH (21:00)
[2020-05-15] MEDS ORDERED: TRAZODONE 50 MG TABLET PO SCH (21:00)
[2020-05-15] MEDS ORDERED: HOME MED [BIMATOPROST OPHTH DROPS/2.5 ML BTL] OPTH SCH (21:00)
[2020-05-15] MEDS ORDERED: ERYTHROMYCIN OPTH SCH (21:00)
[2020-05-15] MEDS ORDERED: ARIPIPRAZOLE PO SCH (21:00)
[2020-05-15] MEDS ORDERED: DULOXETINE 20 MG CAP PO SCH (21:00)
[2020-05-15] MEDS: ATORVASTATIN 40 MG TAB PO SCH (22:03)
[2020-05-15] MEDS: PREGABALIN 150 MG CAP PO SCH (22:05)
--- NOTE | 2020-05-16 03:48 | PN ---
Date of Progress Note: 05/15/2020 Subjective: Ms. Amador is a 75-year-old woman who was admitted with congestive heart failure. She wa s seen by Dr. Davenport yesterday. Echocardiogram which was done today showed a normal ejection fractio n, with very mild grade 1 diastolic dysfunction. Ms. Amador herself is feeling much better today. He r blood pressure is 140/78, with a pulse of 72, in normal rhythm. She was afebrile at 97.4. Her res piratory rate was 18, her O2 saturation was 95%. Her I's and O's were adequate. Diagnostic Studies: She had a creatinine of 0.7. Her hemoglobin was 11.8. Her BNP decreased from 1 222 to 950. Medications: Her present regimen includes Lasix 20 mg IV. She is on Lipitor, Synthroid, metoprolol, Xarelto, and Neurontin. Plan: We will discuss the case further with Dr. Rubalcava, but I am comfortable with Ms. Amador going home whenever it is okay with him. She is on appropriate therapy and at home, she should be obviously on metoprolol, Lasix and salt restriction. I will be happy to see her in the office in the next 2 week brooke KNAPP Voice ID: [id number] Report ID: [id number]
[2020-05-16] MEDS: TRAMADOL HCL 50 MG TAB PO SCH (05:50)
[2020-05-16] MEDS: LEVOTHYROXINE SOD 0.05 MG TABLET PO SCH (05:50)
[2020-05-16 05:55] LABS: Magnesium 2.1 mg/dL (1.8-2.4); Potassium 3.5 mmol/L (3.5-5.1)
[2020-05-16 06:54] VITALS: BMI 29.6
[2020-05-16] MEDS: PREDNISOLONE ACETATE OPTH SCH ×2 (09:00→11:34)
[2020-05-16] MEDS: HOME MED 1 EA UNK (Brimonidine Tartrate/Timolol [Combigan 0.2%-0.5% Eye Drops] 1 GTT) OPTH SCH (09:00)
[2020-05-16] MEDS ORDERED: ESCITALOPRAM 20 MG TAB PO SCH (09:00)
[2020-05-16] MEDS: FUROSEMIDE 20 MG/ 2ML VIAL IV SCH (09:33)
[2020-05-16] MEDS: PREGABALIN 150 MG CAP PO SCH (09:33)
[2020-05-16] MEDS: METOPROLOL XL 25 MG TAB PO SCH (09:33)
[2020-05-16 09:37] VITALS: O2SAT 95
[2020-05-16 12:01] VITALS: BP 120/72; TEMP 97.1
--- NOTE | 2020-05-16 12:50 | DS ---
Date of Discharge: 05/16/2020 Disposition: Discharged to go home. Physical Examination: HEENT: Unremarkable. Lungs: Clear to auscultation. Heart: Sounds normal. Abdomen: Soft. Bowel sounds normal. No guarding, rigidity, tenderness, or distention. Extremity: Trace bilateral leg edema, significantly better than before and bilateral mid anterior le g had small superficial skin tear, which has completely healed up. No signs of any infection. No dr wynne. No redness. Laboratory Data: On 05/14/2020, white count was 5.4, hemoglobin 12, platelets 176. On 05/15/2020, w lokesh count 5, hemoglobin 11.8, platelets 174. Today her sodium was 144, potassium 3.5, chloride 104, bicarb 35, BUN 18, creatinine 0.74, glucose 108, magnesium 2.1. Upon admission sodium 141, potassiu m 4.1, chloride 106, bicarb 33, BUN 15, creatinine 0.79, glucose 91. Liver function tests unremarkab le. Troponin less than 0.02. TSH 6.02. COVID-19 test came back negative. Chest x-ray had shown so me prominence of right hilum and CAT scan of the chest was negative for any hilar mass or any pulmona ry mass. Echocardiogram showed normal ejection fraction with diastolic dysfunction. Hospital Course: A 75-year-old female patient came into emergency room with complaints of leg swelli ng and shortness of breath. Please see dictated H and P for more information. After the patient was evaluated today in the emergency room, she was admitted to the hospital with congestive heart failur e problem. Cardiology consultation was requested. Patient was treated with IV diuretic therapy, res ponded very well and her shortness of breath problem has resolved. Leg swelling problem has signific antly improved. Patient will be discharged to go home in stable condition today. Discharge Diagnoses: 1.Congestive heart failure, chronic, diastolic, with acute exacerbation. 2.Hypertension. 3.Hyperlipidemia. 4.Chronic atrial fibrillation. 5.Osteoarthritis, multiple sites. 6.Peripheral neuropathy. 7.Hypothyroidism. 8.Impaired fasting glucose. 9.Allergic rhinitis. 10.Glaucoma. 11.Coronary artery disease. Discharge Medications And Instructions: 1.Continue all prior home medications. 2.Take furosemide 40 mg tablet by mouth daily and prescription was sent to her [facility] pharmacy. 3.Follow up at my office on 05/21/2020. RYAN/MODL Voice ID: [id number] Report ID: [id number]
== END 2020-05-16 12:39 | disposition home or self-care (01) | DRG 292 ==
LOC: ER 07:38 → ERHOLD 11:20 → 2ND 12:51
PROVIDERS: ADMIT Internal Medicine; ATTEND Internal Medicine
DX: I11.0 Hypertensive heart disease with heart failure (principal); I48.20 Chronic atrial fibrillation, unspecified; I50.33 Acute on chronic diastolic (congestive) heart failure; I25.10 Atherosclerotic heart disease of native coronary artery without angina pectoris; E78.5 Hyperlipidemia, unspecified; J30.9 Allergic rhinitis, unspecified; G62.9 Polyneuropathy, unspecified; M19.90 Unspecified osteoarthritis, unspecified site; E03.9 Hypothyroidism, unspecified; R73.01 Impaired fasting glucose; H40.9 Unspecified glaucoma; Z88.1 Allergy status to other antibiotic agents; Z88.5 Allergy status to narcotic agent; Z88.8 Allergy status to other drugs, medicaments and biological substances; Z90.710 Acquired absence of both cervix and uterus; Z90.49 Acquired absence of other specified parts of digestive tract; Z20.828 Contact with and (suspected) exposure to other viral communicable diseases
CPT/HCPCS: 36415; 51702; 71045; 71250; 80048; 80076; 82947; 83735; 83880; 84439; 84443; 84484; 85025; 85610; 87070; 87077; 87186; 87205; 93005; 93306; 96374; 99285; J1940; U0003

== ENCOUNTER 2022-02-23 08:31 | Inpatient (IN) | payer OTHER ==
--- OUTSIDE RECORDS SUMMARY | 2022-02-23 08:34 | XMS REPORT | Continuity of Care Document ---
:1945 Author Organization [facility] t Address [address] [place] [address] Care Team Providers Name Role Phone Belkis MILNER Primary Care Physician Unavailable Issac Attending Clinician Unavailable RICO Attending Clinician Unavailable OSMAR Attending Clinician Unavailable Brandon PAULINO Attending Clinician Unavailable William ROJAS L Attending Clinician Krysten THOMAS Attending Clinician Unavailable Denys Simental DO Attending Clinician Doctor Unassigned, Name Attending Clinician Unavailable Ernesto Bella Attending Clinician Ernesto JOHNSON Attending Clinician Unavailable DR MISAEL Attending Clinician Unavailable Issac Admitting Clinician Unavailable RICO Admitting Clinician Unavailable OSMAR Admitting Clinician Unavailable Brandon PAULINO Admitting Clinician Unavailable DR MISAEL Admitting Clinician Unavailable Payers Payer Name Policy Type Policy Number Effective Date Expiration Date [facility] [id number] (MEDICARE REPLACEMENT/ADVANTAGE - PPO) Problems Condition Condition Condition Status Onset Resolution Last Treating Co mments Source Name Details Category Date Date Treatment Clinician Date Hypothyroi Hypothyroi Disease Active U nivers dism dism 9- ity of (acquired[place] Excoriated Excoriated Disease Active U nivers rash rash 7-14 ity of 00:00: [place] 00 Medical Branch Near Near Disease Active Univers syncope syncope 7-14 ity of 00:00: [place] 00 Medical Branch Left Left Disease Active 2015-09 Univers shoulder shoulder 2-15 ity of pain pain 00:00: [place] 00 Medical Branch Afib Afib Disease Active Overview: Univer s Formattin ity of g of this [place] note Medical might be Branch different from the original. follows with Dr. Alarcon Hypertensi Hypertensi Disease Active Overview : Univers on on Formattin ity of g of this [place] note Medical might be Branch different from the original. follows with Dr. Alarcon Depression Depression Disease Active U nivers ity of [facility] Anxiety Anxiety Disease Active Univers ity of [facility] Allergies, Adverse Reactions, Alerts Allergy Allergy Status Severity Reaction(s) Onset Inactive Treating Comm ents Source Name Type Date Date Clinician warfarin DA Active SV [facility]NAL [facility] BLEEDING 6-13 Clear 00:00: Daniel 00 [facility] Ciproflo Propensi Active Unknown - Uni vers xacin ty to See comments 03-29 ity of adverse 00:00: [place] reaction 00 Medical s Branch Warfarin Propensi Active Unknown - Uni vers ty to See comments 03-29 ity of adverse 00:00: [place] reaction 00 [facility] s Branch CIPROFLO DRUG Active Unknown-Cmnt Un [place]ake XACIN INGREDI 03-29 ity of 00:00: [place] 00 [facility] Branch WARFARIN DRUG Active Unknown-Cmnt Un [place] INGREDI 03-29 ity of 00:00: [place] 00 Medical Branch Quinolon Propensi Active Shortness of Patient Univers es ty to Breath 4- had a ity of adverse 00:00: full body [place] reaction 00 burn Medical s after Branch receiving cipro eye drops QUINOLON Drug Active SOB Univers ES Class 4- ity of 00:00: [place] 00 Medical Branch Moxiflox Propensi Active Shortness of Univers acin Hcl ty to Breath 3-31 ity of adverse 00:00: [place] reaction 00 Medical s Branch MOXIFLOX DRUG Active High Rash Univers ACIN HCL INGREDI 3-31 ity of 00:00: [place] 00 Medical Branch Hydrocod Propensi Active Other - See bradycar d Univers one-Acet ty to comments 2-28 ia ity of aminophe adverse 00:00: [place] n reaction 00 Medical s [place] HYDROCOD DRUG Active Other-Cmnt Univ ers ONE-ACET 2-28 ity of AMINOPHE 00:00: [place] N 00 Medical Branch Iodine FA Active SV E[facility]MA [facility] and 2-16 Clear Iodide 00:00: Daniel Containi 00 [facility] Fish FA Active U [facility] Containi 2-16 Clear ng 00:00: Daniel Products 00 [facility] crab FA Active U [facility] 2-16 Clear 00:00: Daniel 00 [facility] Iodine Propensi Active Anaphylaxis 2015-09 IV Uni vers ty to 2-15 ity of adverse 00:00: [place] reaction 00 [facility] IODINE DRUG Active Anaphylaxis 2015-09 Unive rs INGREDI 2-15 ity of 00:00: [place] 00 Medical Branch Social History Social Habit Start Date Stop Date Quantity Comments Source Alcohol intake 2021-03-11 2021-03-11 0 /d [facility] 00:00:00 00:00:00 [facility] Branch Sex [birth year] [facility] 00:00:00 00:00:00 Medical Branch Smoking Status Start Date Stop Date Source Never smoker [facility] Medications Ordered Filled Start Stop Current Ordering Indication Dosage Frequency Signature Comments Components Source Medication Medication Date Date Medication? Clinician (SIG) Name Name ferrous 2020-0 Yes 325mg Take 325 Unive rs sulfate 9-24 mg by ity of (IRON) 325 09:10: mouth 3 [place] mg (65 mg 44 (three) Medical iron) times Branch tablet daily with meals. estradioL 2020-0 Yes 2g Insert 2 g Un [place]ake 0.01 % (0.1 9-24 into ity of mg/gram) 09:10: vagina [place] vaginal 44 weekly. Medical cream Branch ferrous 2020-0 Yes 325mg Take 325 Unive rs sulfate 9-24 mg by ity of (IRON) 325 09:10: mouth 3 [place] mg (65 mg 44 (three) Medical iron) times Branch tablet daily with meals. estradioL 2020-0 Yes 2g Insert 2 g Un blake 0.01 % (0.1 9-24 into ity of mg/gram) 09:10: vagina [place] vaginal 44 weekly. Medical cream Branch sulfamethox 2020-0 Yes TK 1 T PO U nivers azole-trime 9-17 BID ity of thoprim 00:00: [place] 800-160 mg 00 Medical per tablet Branch sulfamethox 2020-0 Yes TK 1 T PO U nivers azole-trime 9-17 BID ity of thoprim 00:00: [place] 800-160 mg 00 Medical per tablet Branch furosemide 2019-0 Yes TK 1 T PO Un blake 40 mg 9-12 D ity of tablet 00:00: [place] 00 Medical Branch furosemide 2020-0 Yes TK 1 T PO Un blake 40 mg 9-12 D ity of tablet 00:00: [place] 00 Medical [place] vitamin 2020-0 Yes 1000ug Take 1,000 Un [place] B-12 9-09 mcg by ity of (VITAMIN 15:43: mouth [place] B-12) 1,000 14 daily. Medica l mcg tablet Branch traZODone 2019-0 Yes 100mg Take 100 Uni vers 100 mg 9-09 mg by ity of tablet 15:43: mouth at [place] 14 bedtime. Medical Branch vitamin 2020-0 Yes 1000ug Take 1,000 Un [place]ake B-12 9-09 mcg by ity of (VITAMIN 15:43: mouth [place] B-12) 1,000 14 daily. Medica l mcg tablet Branch traZODone 2019-0 Yes 100mg Take 100 Uni vers 100 mg 9-09 mg by ity of tablet 15:43: mouth at [place] 14 bedtime. Medical Branch olmesartan 2020-0 Yes TK 1 T PO Un blake 20 mg 9-08 D IN THE ity of tablet 00:00: MORNING [place] 00 [facility] Branch olmesartan 2020-0 Yes TK 1 T PO Un blake 20 mg 9-08 D IN THE ity of tablet 00:00: MORNING [place] 00 Medical Branch metoprolol 2020-0 Yes TK 1 T PO Un [place]ake succinate 9-06 BID ity of XL 25 mg 24 00:00: [place] hr tablet 00 Medical Branch metoprolol 2020-0 Yes TK 1 T PO Un blake succinate 9-06 BID ity of XL 25 mg 24 00:00: [place] hr tablet 00 Medical Branch alendronate 2020-0 Yes Univer s 70 mg 8-31 ity of tablet 00:00: [place] 00 Medical Branch alendronate 2019-0 Yes Univer s 70 mg 8-31 ity of tablet 00:00: [place] [facility] Branch pregabalin 2019-0 Yes TK 1 C PO Un blake 100 mg 8-27 BID ity of capsule 00:00: [place] [facility] pregabalin 2019-0 Yes TK 1 C PO Un blake 100 mg 8-27 BID ity of capsule 00:00: [place] [facility] MYRBETRIQ 2019-0 Yes TK 1 T PO Uni vers 50 mg 8-26 ONCE D. ity of tablet 00:00: [place] [facility] MYRBETRIQ 2019-0 Yes TK 1 T PO Uni vers 50 mg 8-26 ONCE D. ity of tablet 00:00: [place] [facility] ARIPiprazol 2019-0 Yes TK 1/2 T Un blake e 2 mg 7-22 PO QHS ity of tablet 00:00: [place] [facility] ARIPiprazol 2019-0 Yes TK 1/2 T Un [place] e 2 mg 7-22 PO QHS ity of tablet 00:00: [place] [facility] DULoxetine 2019-0 Yes TK 1 C PO Un blake 20 mg 7-18 D ity of capsule 00:00: [address] DULoxetine 2019-0 Yes TK 1 C PO Un blake 20 mg 7-18 D ity of capsule 00:00: [address] amLODIPine 2019-0 Yes TK 1 T PO Un blake 5 mg tablet 6-23 D IN THE ity of 00:00: MORNING [address] amLODIPine 2019-0 Yes TK 1 T PO Un blake 5 mg tablet 6-23 D IN THE ity of 00:00: MORNING [place] [facility] atorvastati 2017-0 Yes Univer s n 40 mg 4-16 ity of tablet 00:00: [address] atorvastati 2017-0 Yes Univer s n 40 mg 4-16 ity of tablet 00:00: [address] levothyroxi 2017-0 Yes Univer s ne 50 mcg 2-24 ity of tablet 00:00: [address] levothyroxi 2017-0 Yes Univer s ne 50 mcg 2-24 ity of tablet 00:00: [address] traMADOL 50 2017-1 Yes [id number] 50mg Take 1 Univers mg tablet 1-03 tablet by ity o f 00:00: mouth [place] 00 every 8 Medical (eight) Branch hours as needed for Pain (scale 4-6) or Pain (scale 7-10). traMADOL 50 2016-09 Yes 50mg Take 1 Univers mg tablet 1-03 tablet by ity o f 00:00: mouth [place] 00 every 8 Medical (eight) Branch hours as needed for Pain (scale 4-6) or Pain (scale 7-10). escitalopra Yes 15mg Take 1.5 Un [place]ake m oxalate 8-17 tablets by ity of 10 mg 00:00: mouth [place] tablet 00 daily. Medical Branch escitalopra Yes 15mg Take 1.5 [place] m oxalate 8-17 tablets by ity of 10 mg 00:00: mouth [place] tablet 00 daily. Medical Branch prednisoLON 2015-09 Yes INT 1 GTT U nivers E acetate 2-07 IN OU QID. ity of (PRED-FORTE 00:00: [place] ) 1 % 00 Medical ophthalmic Branch suspension drops prednisoLON 2015-09 Yes INT 1 GTT U nivers E acetate 2-07 IN OU QID. ity of (PRED-FORTE 00:00: [place] ) 1 % 00 Medical ophthalmic Branch suspension drops LUMIGAN 2015-09 Yes INSTILL 1 Unive rs 0.01 % 2-05 DROP IN ity of ophthalmic 00:00: BOTH EYES [place] drops 00 [facility] 2015-09 Yes INSTILL 1 Unive rs 0.01 % 2-05 DROP IN ity of ophthalmic 00:00: BOTH EYES [place] drops 00 [facility] 2015-09 Yes INSTILL 1 Univ ers 0.2-0.5 % 2-04 DROP IN ity of ophthalmic 00:00: BOTH EYES [place] drops 00 BID Medical Branch XARELTO 20 2015-09 Yes TK 1 T PO Un [place] mg tablet 2-04 QPM. ity of 00:00: [place] 00 [facility] Branch COMBIGAN 2015-09 Yes INSTILL 1 Univ ers 0.2-0.5 % 2-04 DROP IN ity of ophthalmic 00:00: BOTH EYES [place] drops 00 BID Medical Branch XARELTO 20 2015-09 Yes TK 1 T PO Un blake mg tablet 2-04 QPM. ity of 00:00: [place] 00 Medical Branch Immunizations Ordered Filled Immunization Date Status Comments Sour e Immunization Name Name Influenza High Dose 2016-06-03 Completed Unive rsity of 00:00:00 [facility] Influenza High Dose 2016-06-03 Completed Unive rsity of 00:00:00 [facility] Pneumococcal 13 2013-12-02 Completed Universit y of Conjugate, PCV13 00:00:00 [facility] dical (Prevnar 13) Branch Pneumococcal 13 2013-12-02 Completed Universit y of Conjugate, PCV13 00:00:00 [place] Me dical (Prevnar 13) Branch Pneumococcal 2012-12-02 Completed University o f Polysaccharide, 00:00:00 [place] Med ical PPSV23 (PNEUMOVAX) Branch Pneumococcal 2012-12-02 Completed University o f Polysaccharide, 00:00:00 [place] Med ical PPSV23 (PNEUMOVAX) Branch Vital Signs Vital Name Observation Time Observation Value Comments Source Systolic blood 2021-03-11 14:46:00 139 mm[Hg] Univer [facility]ity of [facility] Diastolic blood 2021-03-11 14:46:00 73 mm[Hg] Unive rsity of [facility] Heart rate 2021-03-11 14:46:00 57 /min [facility] Body height 2021-03-11 14:46:00 162.6 cm [facility] Body weight 2021-03-11 14:46:00 81.647 kg [facility] BMI 2021-03-11 14:46:00 30.90 kg/m2 [facility] Procedures This patient has no known procedures. Encounters Start End Encounter Admission Attending Care Care Encounter Source Date/Time Date/Time Type Type Clinicians Facility Department ID 2022-02-23 Inpatient KENYON DavenportJAY CARD [id number] [facility] 05:43:00 Sylvain 48 [facility] 2022-02-16 Inpatient KENYON Davenport SITACL CARD [id number] [facility] 13:00:00 Sylvain [id number] [facility] 2021-12-21 2021-12-24 Inpatient R[place] [facility] MED 210 [facility] 05:57:00 13:40:00 ALVAREZ 2021-09-30 2021-09-30 Outpatient VICTORIA WYRADHA [facility] [id number] [place] 09:24:00 09:24:00 [facility] 2021-04-06 2021-04-08 Inpatient U JEFFERSON, [facility] CAR [id number] [facility] 18:01:00 16:00:00 MINESH 2021-03-11 2021-03-11 Office William [facility] [id number] [facility] 09:33:57 12:16:03 Visit Stephanie [facility] [id number] it y of Surgical [id number] David as Specialti [id number] [place] dical es 198 Branch [place] 2021-03-11 2021-03-11 Outpatient R WILLIAM [facility] [id number] 1Q-20 Univers 10:30:00 10:30:00 STEPHANIE [id number] [facility] [place] 2021-03-11 2021-03-11 [facility] [id number] Univers 10:30:00 10:30:00 [facility] 2020-09-27 2020-09-27 Patient Hola [facility] [id number] 00:00:00 00:00:[address] [facility] [id number] [facility] [id number] RAVINDER [id number] 2020-07-15 2020-07-15 Orders Doctor SUTLANA [id number] 00:00:00 00:00:00 Only Unassigned, TIAGO [id number] [place] [facility] [id number] 2020-07-14 2020-07-14 Office Elizabeth [facility] [id number] 09:09:28 09:52:49 Visit Ana Orozco [facility] [id number] Surgical [id number] Specialti [id number] es [address] [place] 2020-07-14 2020-07-14 [facility] [id number] Univers 09:30:00 09:30:00 ANA [facility] [place] 2020-07-14 2020-07-14 Outpatient R ELIZABETH [facility] [id number] Univers 09:30:00 09:30:00 ANA [facility] [place] 2020-05-28 2020-05-28 Outpatient R WILLIAM [facility] [id number] Univers 09:00:00 09:00:00 STEPHANIE [id number] [facility] [place] 2020-05-28 2020-05-28 Outpatient R WILLIAM [facility] [id number] Univers 09:00:00 09:00:00 STEPHANIE [facility] [place] 2020-05-18 2020-05-18 Outpatient R WILLIAM [facility] [id number] Univers 15:00:00 15:00:00 STEPHANIE [id number] [facility] [place] 2020-05-18 2020-05-18 Outpatient R WILLIAM [facility] [id number] Univers 15:00:00 [facility]:00[facility] 2020-05-13 Outpatient R WILLIAM [facility] [id number] Univers 15:45:00 15:45:00 STEPHANIE [facility] [place] 2020-05-13 2020-05-13 Outpatient R WILLIAM [facility] [id number] Univers 15:45:00 15:45:00 [facility] 2019-10-28 2019-10-28 Outpatient O WILLIAM [facility] [id number] Univers 16:26:21 23:59:00 [facility] 2017-12-01 2017-12-01 Emergency E MISAEL, [facility] [id number] [place] 15:37:00 17:48:00 [facility] Results Test Description Test Time Test Comments Results Result Comments Source Novel Coronavirus 2018 Inhouse 2022-02-15 02:51:00 Test Item Value Reference Range Interpretation Comme nts Novel Coronavirus 2018 Negative Negative Posit nita results are indicative of the Inhouse (test code = presenc e unRBHD-GiQ-3 RNA, clinical COVNONPUI) correlation wit h patient historyand other diagnosti c information is necessary to de terminepatient infection status. Positiv e results do not rule outbacterial in fection or co-infection with other viru ses. Negative results do not preclude SA RS-CoV-2 infection andshould not b e used as the sole basis for patient man agementdecisions. Negative result s must be combined with otherclinical o bservations, patient history, and ep idemiologicalinformation. Detection of SA RS-CoV-2 RNA may be affected bysamp le collection methods, storage conditi ons, and/or stageof infection. Vivien l RNA mutations, vaccinations, a ntiviraltherapeutics, antibiotics, ch emotherapeutic orimmunosuppres david drugs have not been evaluated for e ffectson detection. Results are for the identification of SARS-CoV-2 RNA usingreal-time (RT) polymerase chas n reaction (PCR) technologyfor t he qualitative detection of nucleic acid s from xtgDLZD-JwP-6 virus and diagn osis of SARS-CoV-2 virusinfection. It is an Emergency Use Authorization ( EUA) testauthorized by the U.S. FDA. CBC W/AUTO [id number] 13:57:00 Test Item Value Reference Range Interpretation Comments WHITE BLOOD CELL (test code = 6.9 x10 3/uL 4.5-11.0 N WBC) RED BLOOD CELL (test code = 3.88 x10 6/uL 3.54-5.02 N RBC) HEMOGLOBIN (test code = HGB) 13.3 g/dL 11.0-15.0 N HEMATOCRIT (test code = HCT) 41.4 % 33.0-45.0 N MEAN CELL VOLUME (test code = 106.7 fL 81.0-99.0 H MCV) MEAN CELL HGB (test code = MCH) 34.3 pg 27.0-33.0 H MEAN CELL HGB CONCETRATION 32.1 g/dL 33.0-37.0 L (test code = MCHC) RED CELL DISTRIBUTION WIDTH CV 12.2 % 11.5-14.5 N (test code = RDW) PLATELET COUNT (test code = 199 x10 3/uL 150-400 N PLT) NEUTROPHIL % (test code = NT%) 79.4 % 56.0-77.0 H LYMPHOCYTE % (test code = LY%) 15.7 % 14.0-32.0 N NEUTROPHIL # (test code = NT#) 5.45 x10 3/uL 2.0-7.6 N LYMPHOCYTE # (test code = LY#) 1.08 x10 3/uL 1.0-3.8 N MANUAL DIFF REQUIRED (test code NO = MDIFF) RED CELL DISTRIBUTION WIDTH SD 47.8 fL 37.0-54.0 N (test code = RDW-SD) MEAN PLATELET VOLUME (test code 11.3 fL 7.0-9.0 H = MPV) IMMATURE GRANULOCYTE % (test 0.3 % 0.0-2.0 N code = IG%) MONOCYTE % (test code = MO%) 3.9 % 4.8-9.0 L EOSINOPHIL % (test code = EO%) 0.4 % 0.3-3.7 N BASOPHIL % (test code = BA%) 0.3 % 0.0-2.0 N NUCLEATED RBC % (test code = 0.0 % 0-0 N NRBC%) IMMATURE GRANULOCYTE # (test 0.02 x10 3/uL 0.00-0.03 N code = IG#) MONOCYTE # (test code = MO#) 0.27 x10 3/uL 0.1-0.8 N EOSINOPHIL # (test code = EO#) 0.03 x10 3/uL 0.0-0.2 N BASOPHIL # (test code = BA#) 0.02 x10 3/uL 0.0-0.2 N NUCLEATED RBC # (test code = 0.00 x10 3/uL 0.0-0.1 N NRBC#) RBC [id number] 13:57:00 Test Item Value Reference Range Interpretation Comments ANISOCYTOSIS (test code = ANISO) 1+ MACROCYTOSIS (test code = MACR) 1+ [id number] 13:52:00 Test Item Value Reference Range Interpretation Comments PREALBUMIN (test code = PREALB) 5.6 mg/dL 16.0-40.0 L BASIC METABOLIC [id number] 13:52:00 Test Item Value Reference Range Interpretation Comments SODIUM (test code = NA) 141 mEq/L 134-147 N POTASSIUM (test code = 3.4 mEq/L 3.4-5.0 N K) CHLORIDE (test code = 108 mEq/L 100-108 N CL) CARBON DIOXIDE (test 28 mEq/l 21-33 N code = CO2) ANION GAP (test code = 8 0-20 N GAP) GLUCOSE (test code = 112 mg/dL 70-110 H GLU) BLOOD UREA NITROGEN 10 mg/dL 7-18 N (test code = BUN) GLOMERULAR FILTRATION 69.4 70-80 L Units of measure = RATE (test code = GFR) ml/mi n/1.73 m2 CREATININE (test code = 0.8 mg/dL 0.6-1.3 N CREAT) CALCIUM (test code = 8.4 mg/dL 8.0-10.5 N CA) PROTHROMBIN [id number] 13:43:00 Test Item Value Reference Range Interpretation Comments PROTHROMBIN TIME 14.0 SECONDS 9.3-12.9 H PATIENT (test code = PTP) INTERNATIONAL NORMAL 1.3 0.8-1.2 H TARGET RATIO (test code = INR BY IN DICATION INR) Indication INR1. Prophyl axis of venous thrombos is 2.0 - 3. 0 (orthopedic agus padmini), Prophylaxis of venous thrombos is (other than hig h-risk surgery), Kerry tment of Deep Vein Thrombosis/Pulm onary Embolism, Preve ntion of systemic emb olism - Tissue heart va lves, Acute Myocardia l Infarction (to prevent systemic embo lism), Valvular heart disease, Atri al Fibrillation, Bileaflet mecha nical valve in aortic position.2. Mec hanical prosthetic valv es (high risk), 2.5 - 3.5 Presence of Lupus Anticoagu lant or Antiphospholi pid Antibodies, Pre vention of systemic e mbolism - Acute Myocard ial Infarction (t o prevent recurre nt infarct). - XR CHEST 2 [id number] 00:00:00 [facility] : 1945 Sex: F FAX: Sylvain Li MD [phone] [place]: St: PRE Name: BRETT HODGES [facility] : 1945 Age/S: 76/F [address] [place] [address] Unit #: [id number] Loc: [place] [address] Phys: Neli Davenport Acct: [id number] Dis Date: Status: PRE IN PHONE #: [phone] Exam Date: 02/14/2022 1345 FAX #: [phone] Reason: PREOP Report Has Been Amended EXAMS: CPT CODE: [id number] XR CHEST 2 V 13425 Addendum - 02/14/2022 SIGNED 02/14/2022 ADDENDUM: [id number] RAD/CXR2 Small left pleural effusion. at 1613 Reported and signed by: Jodi Hooker D.O. Report PROCEDURE INFORMATION: Exam: XR Chest Exam date and time: 02/14/2022 1:02 PM Age: 76 years old Clinical indication: Pre-operativeexam; Cardiovascular screening and respiratory screening exam; Additional info: Preop TECHNIQUE: Imaging protocol: XR of the chest. Views: 2 views. PA and Lateral COMPARISON: MRA NECK W/CONTRAST 10/21/2016 12:32 PM FINDINGS: Lungs: No consolidation. Pleural spaces: Small left pleural effusion. Heart/Mediastinum: The heart and vascular markings are within limits of normal. There is atherosclerotic calcification of the aorta. Bones/joints: No gross acute findings. IMPRESSION: No small left pleural effusion. at 1612 Reported and signed by: Jodi Hooker D.O. PAGE 1 Signed Report (CONTINUED) FAX:Sylvain Li MD [phone] [place]: St: PRE Name: BRETT HODGES [facility] : 1945 Age/S: 76/F [address] [place] [address] Unit #: [id number] Loc: [place] [address] Phys: Sylvain Davenport MD Acct: [id number] Dis Date: Status: PRE IN PHONE #: [phone] Exam Date: 02/14/2022 1345 FAX #: [phone] Reason: PREOP Report Has Been Amended EXAMS: CPT CODE: [id number] XR CHEST 2 V 86390 <Continued> CC: Sylvain Davenport MD Technologist: RT Pilo(R) Trnscrd Date/Time/By: 02/14/2022 (1611) : By: [email or web address] Orig Print D/T: S: 02/14/2022 (1611) PAGE 2 Signed ReportCT ABDOMEN AND PELVIS W/O [id number] 17:07:47CT abdomen and pelvis without contrastLocation Code: W6YHKOPLIS HISTORY: R10.2: PELVIC AND PERINEAL PAINCOMPARISON: NoneTechnique: [...] There is no boweldilatation. Surgical anastomosis is n oted within the proximal small bowelwithin the left [...] adjacent mesenteric inflammation withoutfluid collection or free air.PRO TIME AND [id number] 16:59:00 Test Item Value Reference Range Interpretation Comments PT (test code = 10.9 s 9.8-13.6 TT) INR (test code = 1.0 INR) INRH (test code = SUGGESTED INRH) THERAPEUTIC RANGE FOR INR: 2.5 - 3.5 For Patients with Prosthetic Valves or Patients with recurrent Thromboembolic Events 2.0 - 3.0 For Most Other Applications PTT (test code = 34.3 s 20.2-38.0 PTT) PTTH (test code = To monitor the PTTH) effectiveness of heparin, we offer the Anti-Xa (Heparin Assay). It can be used for either unfractionated or LMW Heparin. Order Code is ANTI-XA COMPREHENSIVE METABOLIC [id number] 16:59:00 Test Item Value Reference Range Interpretation [...] IU/L <=78 XR FEMUR LEFT AP & [id number] 16:58:20Left femur, 4 viewsLocation Code: F7Zaopzugf history: R10.2: PELVIC AND PERINEAL PAINComment: AP andlateral views of the left femur demonstrate no displacedfracture or malalignment. Left total knee arthroplasty is intact. The softtissues are unremarkable.Impression:No acute radiographic abnormality.[id number] 16:46:00 Test Item Value Reference Range Interpretation [...]
[2022-02-23 09:45] LABS: Absolute Lymphocytes (CBC) 1.1 K/uL (0.7-4.9); Hematocrit 39.6 % (36.0-45.0); Lymphocytes % 10.9 % (15.3-44.8); MCV 101.8 fL (80-100); MPV 9.1 fL (7.6-11.3); RBC Red Blood Cell Count 3.89 M/uL (3.86-4.86)
[2022-02-23 10:04] LABS: Potassium 3.4 mmol/L (3.5-5.1)
--- NOTE | 2022-02-23 10:19 | RAD REPORT ---
EXAM DESCRIPTION: Danis Single View02/23/2022 9:45 am CLINICAL HISTORY: Leukocytosis COMPARISON: 2019 FINDINGS: Small to moderate left pleural effusion with atelectasis. Small right pleural effusion. Upper lobes appear clear. Heart is normal size
[2022-02-23 10:41] LABS: Urine Blood Trace-lysed (Negative); Urine Glucose Negative (Negative); Urine Protein Trace (Negative); Urine Specific Gravity >=1.030 (1.005-1.030); Urine pH 5.5 (5.0-7.0)
--- NOTE | 2022-02-23 10:43 | RAD REPORT ---
EXAM DESCRIPTION: CT - Abdomen Pelvis Wo Contrast - 02/23/2022 9:58 am CLINICAL HISTORY: Abdominal pain COMPARISON: 2008 TECHNIQUE: Computed axial tomography of the abdomen and pelvis was obtained. IV and oral contrast we re not requested. All CT scans are performed using dose optimization technique as appropriate and may include automated exposure control or mA/KV adjustment according to patient size. FINDINGS: The evaluation of solid organs, vessels and bowel is limited secondary to the lack of con trast administration. A small to moderate left and small right pleural effusions. Small amount of ascites. Diffuse edema within the subcutaneous tissues. 7 x 3 centimeter fluid collection is present within the upper right pelvis abutting the anterior wall musculature. No air bubbles. The liver, spleen, pancreas, adrenals and kidneys appear grossly normal. No evidence of diverticulitis IMPRESSION: Small to moderate left and small right pleural effusions Extensive edema within the subcutaneous tissues 7 x 3 centimeter fluid collection within the upper right pelvis abutting the anterior wall musculatur e. This may represent a hematoma or abscess. Ultrasound is recommended.
[2022-02-23 11:12] LABS: Urine Bacteria LOADED /HPF (<20); Urine RBC <5 /HPF (NONE SEEN)
[2022-02-23] MEDS ORDERED: CEFTRIAXONE 1000 MG/VIAL ONE (11:12)
--- NOTE | 2022-02-23 11:59 | RAD REPORT ---
EXAM DESCRIPTION: US - Pelvis Complete - 02/23/2022 11:02 am CLINICAL HISTORY: Pelvic mass COMPARISON: CT February 23, 2022 FINDINGS: An approximately 9 x 3 centimeter fluid collection containing internal debris and septatio ns is present within the anterior upper right pelvis abutting the abdominal wall musculature. Blood f low was not seen within the mass. IMPRESSION: 9 centimeter mass within the anterior right pelvis has the appearance of a subacute sammie too. This should be correlated clinically. Followup ultrasound in a couple weeks would be helpful to assess stability/resolution
--- NOTE | 2022-02-23 12:09 | ER ---
Nurse's Notes [facility] Name: Germaine Amador Age: 76 yrs Sex: Female : 1945 Arrival Date: 02/23/2022 Time: 08:31 Bed 18 Private MD: Diagnosis: UTI/ Urinary tract infection, site not specified;Subacute pelvic hematoma Presentation: 02/23 08:38 Chief complaint: Patient states: had a high WBC yesterday , per Dr. Rubalcava , referred to ER for evaluation. Coronavirus screen: At this time, the client does not indicate any symptoms associated with coronavirus-19. Ebola Screen: Patient negative for fever greater than or equal to 101.5 degrees Fahrenheit, and additional compatible Ebola Virus Disease symptoms Patient denies exposure to infectious person. Patient denies travel to an Ebola-affected area in the 21 days before illness onset. No symptoms or risks identified at this time. Initial Sepsis Screen: Does the patient meet any 2 criteria? No. Patient's initial sepsis screen is negative. Does the patient have a suspected source of infection? No. Patient's initial sepsis screen is negative. Risk Assessment: Do you want to hurt yourself or someone else? Patient reports no desire to harm self or others. Onset of symptoms was February 23, 2022. 08:38 Method Of Arrival: Wheelchair iw 08:38 Acuity: EMLLO 3 iw Triage Assessment: 09:52 General: Appears in no apparent distress. Pain: Complains of pain in dorsal aspect of jh6 left forearm Pain currently is 2 out of 10 on a pain scale. Quality of pain is described as aching, Pain began 2-3 days ago. Is continuous, Aggravated by increased activity, touch. EENT: No deficits noted. Neuro: No deficits noted. Cardiovascular: No deficits noted. Respiratory: No deficits noted. GI: No deficits noted. : No deficits noted. Derm: Skin is red, Wound noted dorsal aspect of left forearm Rash noted that is red, on dorsal aspect of left forearm. Historical: - Allergies: 08:40 Iodinated Contrast Media - IV Dye; iw 08:40 Warfarin; iw 08:40 Cipro IV; iw 08:40 Aminophylline; iw - PMHx: 08:40 EDEMA; Sleep Apnea; Rheumatoid Arthritis; Hypertension; Chronic pain; Alcoholism; iw - Family history:: not pertinent. - Social history:: Smoking status: unknown. - Hospitalizations: : No recent hospitalization is reported. Screenin:30 Abuse screen: Denies threats or abuse. Nutritional screening: No deficits noted. jh6 Tuberculosis screening: No symptoms or risk factors identified. Fall Risk IV access (20 points). Gait- Weak (10 pts.). Assessment: 09:30 General: Appears in no apparent distress. Behavior is calm, cooperative. jh6 10:30 Reassessment: No changes from previously documented assessment. Patient and/or family jh6 updated on plan of care and expected duration. Pain level reassessed. Patient is alert, oriented x 3, equal unlabored respirations, skin warm/dry/pink. 10:30 Derm: Skin is red, Wound noted dorsal aspect of left forearm Denies pain. jh6 11:00 Reassessment: No changes from previously documented assessment. pt able to stand with jh6 assistance and use bedside commode. states that she uses a walker at home. 12:00 Reassessment: No changes from previously documented assessment. Patient and/or family jh6 updated on plan of care and expected duration. Pain level reassessed. 13:35 General: Behavior is calm, cooperative. Pain: Denies pain. jh6 13:35 Neuro: No deficits noted. Cardiovascular: No deficits noted. Respiratory: No deficits jh6 noted. 15:06 Reassessment: Patient and/or family updated on plan of care and expected duration. Pain jh6 level reassessed. attempted to call report but nurse was unavailable due to d/cing pts. Pain: Denies pain. Vital Signs: 08:38 BP 133 / 83; Pulse 76; Resp 16; Temp 98.6; Pulse Ox 96% on R/A; iw 13:40 BP 138 / 71; Pulse 83; Resp 17; Pulse Ox 100% ; Pain 0/10; jh6 14:15 BP 135 / 54; Pulse 68; Resp 17; Temp 98.4(O); Pulse Ox 99% ; Pain 0/10; jh6 15:00 BP 143 / 58; Pulse 72; Resp 16; Pulse Ox 100% ; Pain 0/10; jh6 16:28 BP 129 / 65; Pulse 70; Resp 17; Pulse Ox 100% ; Pain 0/10; jh6 ED Course: 08:31 Patient arrived in ED. rg4 08:36 Tramaine Dominguez MD is Attending Physician. rn 08:39 Triage completed. iw 09:30 Bed in low position. Call light in reach. Side rails up X2. Adult w/ patient. jh6 09:40 Arm band placed on left wrist. Patient placed in the treatment room, on a stretcher, on 6 radiology director, on pulse oximetry. 09:46 XRAY Chest (1 view) In Process Unspecified. EDMS 09:51 Thao Valenzuela RN is Primary Nurse. jh6 09:51 Inserted saline lock: 24 gauge in right antecubital area, using aseptic technique. jh6 Blood collected. 09:54 CT Abd/Pelvis - Without Contrast Sent. jh6 10:00 Abdomen In Process Unspecified. EDMS 11:01 US Pelvis Complete In Process Unspecified. EDMS 12:08 Brandon Rubalcava MD is Hospitalizing Provider. rn 16:26 No provider procedures requiring assistance completed. 6 Administered Medications: 11:07 Drug: Rocephin (cefTRIAXone) 1 grams Route: IV; Rate: calculated rate; Site: right [facility] antecubital; 11:52 Follow up: Response: No adverse reaction 6 Outcome: 12:08 Decision to Hospitalize by Provider. rn 16:26 Admitted to Tele accompanied by tech, room 214. 6 16:26 Condition: stable 16:26 Instructed on the need for admit. 16:35 Patient left the ED. 6 Signatures: Dispatcher [employer] Alisa Taylor RN RN iw Nieto, Roman, MD MD rn Garcia, Rubi rg4 Thao Valenzuela, RN RN [facility]
--- NOTE | 2022-02-23 12:09 | EDPHYS ---
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 09:14 Pt sent in by Dr. Rubalcava, for elevated WBC on outpt labs. 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 Pt upset that she is here. states noticed rash to left arm. NO known trauma. No fall. No chest pain/sob/abd pain/vomiting/diarrhea. Onset: The symptoms/episode began/occurred at an unknown time. Severity of symptoms: At their worst the symptoms were mild. The patient has not experienced similar symptoms in the past. The patient has been recently seen by a physician:. Historical: - Allergies: 08:40 Iodinated Contrast Media - IV Dye; iw 08:40 Warfarin; iw 08:40 Cipro IV; iw 08:40 Aminophylline; iw - PMHx: 08:40 EDEMA; Sleep Apnea; Rheumatoid Arthritis; Hypertension; Chronic pain; Alcoholism; iw - Family history:: not pertinent. - Social history:: Smoking status: unknown. - Hospitalizations: : No recent hospitalization is reported. ROS: 09:14 Constitutional: Negative for fever, chills, and weight loss, Eyes: Negative for injury, rn pain, redness, and discharge, Neck: Negative for injury, pain, and swelling, Cardiovascular: Negative for chest pain, palpitations, and edema, Respiratory: Negative for shortness of breath, cough, wheezing, and pleuritic chest pain, Abdomen/GI: Negative for abdominal pain, nausea, vomiting, diarrhea, and constipation, Back: Negative for injury and pain, MS/Extremity: Negative for injury and deformity, Skin: + rash to skin Neuro: Negative for headache, weakness, numbness, tingling, and seizure. Exam: 09:14 Constitutional: This is a well developed, well nourished patient who is awake, alert, rn and in no acute distress. Head/Face: Normocephalic, atraumatic. Eyes: Periorbital areas with no swelling, redness, or edema. ENT: MMM, no stridor Neck: Trachea midline, no masses palpated, and no cervical lymphadenopathy. Supple, full range of motion without nuchal rigidity, or vertebral point tenderness. No Meningismus. Cardiovascular: Regular rate and rhythm. No pulse deficits. Respiratory: No increased work of breathing, no retractions or nasal flaring. Abdomen/GI: Soft, non-tender Skin: Warm, dry, + erythematous rash with tenderness to left forearm. No fluctuance. NO streaking. MS/ Extremity: Pulses equal, no cyanosis. Neurovascular intact. Full, normal range of motion. Equal circumference. Neuro: Awake and alert, GCS 15 Vital Signs: 08:38 BP 133 / 83; Pulse 76; Resp 16; Temp 98.6; Pulse Ox 96% on R/A; iw 13:40 BP 138 / 71; Pulse 83; Resp 17; Pulse Ox 100% ; Pain 0/10; jh6 14:15 BP 135 / 54; Pulse 68; Resp 17; Temp 98.4(O); Pulse Ox 99% ; Pain 0/10; jh6 15:00 BP 143 / 58; Pulse 72; Resp 16; Pulse Ox 100% ; Pain 0/10; jh6 16:28 BP 129 / 65; Pulse 70; Resp 17; Pulse Ox 100% ; Pain 0/10; jh6 MDM: 08:36 Patient medically screened. rn 12:07 Differential Diagnosis UTI, pyelonephritis, cellulitis. Data reviewed: vital signs, rn nurses notes, lab test result(s), radiologic studies, CT scan, ultrasound, and as a result, I will admit patient. Counseling: I had a detailed discussion with the patient and/or guardian regarding: the historical points, exam findings, and any diagnostic results supporting the discharge/admit diagnosis, lab results, radiology results, the need for further work-up and treatment in the hospital. Admission orders: after a detailed discussion of the patient's condition and case, the admit orders are written by me. 02/23 08:53 Order name: CBC with Diff; Complete Time: 10:08 rn 02/23 08:53 Order name: Basic Metabolic Panel; Complete Time: 10:08 rn 02/23 08:53 Order name: Influenza Screen (a \\T\\ B); Complete Time: 10:46 rn 02/23 08:53 Order name: SARS-COV-2 RT PCR (Document "Date of Onset" if Symptomatic); Complete Time: rn 11:55 02/23 08:53 Order name: Blood Culture Adult (2) rn 02/23 08:53 Order name: Procalcitonin; Complete Time: 10:46 rn 02/23 08:53 Order name: XRAY Chest (1 view); Complete Time: 10:46 rn 02/23 08:53 Order name: Urine Culture rn 02/23 08:53 Order name: Urine Microscopic Only; Complete Time: 11:55 rn 02/23 09:18 Order name: CT Abd/Pelvis - Without Contrast rn 02/23 09:22 Order name: Abdomen ; Complete Time: 10:46 EDMS 02/23 10:42 Order name: Urine Dipstick-Ancillary; Complete Time: 10:46 EDGA 02/23 14:54 Order name: PT-INR rn 02/23 14:54 Order name: Ptt, Activated rn 02/23 08:53 Order name: IV Start; Complete Time: 09:54 rn 02/23 10:48 Order name: US Pelvis Complete; Complete Time: 12:04 rn Administered Medications: 11:07 Drug: Rocephin (cefTRIAXone) 1 grams Route: IV; Rate: calculated rate; Site: right [facility] antecubital; 11:52 Follow up: Response: No adverse reaction [facility] Disposition Summary: 02/23/22 12:08 Hospitalization Ordered Hospitalization Status: Inpatient Admission rn Provider: Brandon Rubalcava rn [facility]n Condition: Stable rn Problem: new rn Symptoms: have improved rn Bed/Room Type: Standard rn Room Assignment: 214(02/23/22 14:26) bd Diagnosis - UTI/ Urinary tract infection, site not specified rn - Subacute pelvic hematoma rn Forms: - Medication Reconciliation Form rn - SBAR form rn Signatures: Dispatcher [employer] EDRayne Amaral Irene RN Tramaine Sears MD MD rn Hastedt, Jennifer, RN RN 6 Corrections: (The following items were deleted from the chart) 14:26 12:08 rn bd
[2022-02-23] MEDS ORDERED: ONDANSETRON 4 MG/2 ML VIAL IV PRN (14:23)
[2022-02-23 17:24] VITALS: BMI 32.5
--- NOTE | 2022-02-23 21:44 | RAD REPORT ---
EXAM DESCRIPTION: CT - Thorax Wo Con - 02/23/2022 9:04 pm CLINICAL HISTORY: CHF COMPARISON: Thorax Wo Con dated 05/14/2020; Thorax Wo Con dated 02/20/2020; Chest Single View dated FINDINGS: Chest Wall: No suspicious thyroid nodules or pathologic lymphadenopathy. Lungs: Atelectasis as a result of the effusions. Pleura: Small bilateral effusions. Mediastinum/nick: No pathologic lymphadenopathy. Pulmonary arteries/Aorta: Limited evaluation without contrast. No aortic aneurysm. Heart: No significant pericardial effusion. Normal heart size. Coronary artery calcifications. Upper abdomen: Surgical changes at gastroesophageal junction. Ascites. Bones: No acute abnormality. Body wall edema. Multilevel degenerative changes are present in the spin e. All CT scans are performed using dose optimization technique as appropriate and may include automated exposure control or mA/KV adjustment according to patient size. IMPRESSION: Anasarca including small bilateral pleural effusions, body wall edema, and ascites.
[2022-02-23] MEDS: TRAZODONE 50 MG TABLET PO SCH (22:27)
[2022-02-23] MEDS: CEFTRIAXONE 1,000 MG in NA CHLORIDE 0.9% 50 ML IVPB SCH (22:36)
[2022-02-24] MEDS: ACETAMINOPHEN 500 MG TAB PO PRN ×2 (00:38→16:50)
[2022-02-24 06:17] LABS: Absolute Lymphocytes (CBC) 0.8 K/uL (0.7-4.9); Lymphocytes % 12.7 % (15.3-44.8); MCV 100.8 fL (80-100); MPV 8.8 fL (7.6-11.3); RBC Red Blood Cell Count 3.08 M/uL (3.86-4.86)
--- NOTE | 2022-02-24 06:59 | HP ---
Date of Admission: 02/23/2022 Chief Complaint: Abnormal blood work results and not feeling good. History Of Present Illness: This is a 76-year-old female patient, who came into office on 02/21/2022 with her with complaints of not feeling good and describes as not having any energy, no appetite, feeling short of breath. About a month ago, she had anemia with hemoglobin of around 9.2 or so and she was started on iron supplement and I was concerned about possibility of worsening of anemia and outpatient CBC was done yesterday and hemoglobin came back 11.8, but WBC count came back 14.8. With that result as it became available this morning, I contacted the patient's and informed him that the patient should be brought to emergency room for further evaluation and management of this problem of high WBC count with other constitutional symptoms that she has and he informed me that the patient actually is scheduled to have Watchman's procedure done today by Dr. Davenport, and obviously with this abnormal blood test results and concerns about infection, I have recommended to cancel such elective procedure and I did reach out to Dr. Davenport and details were discussed with him as well. After the patient came to the emergency room, she was evaluated. Details were discussed with ER physician, and after all the evaluation was done, the patient was admitted to the hospital. I saw her this evening, her was with her at bedside. Allergies: TO IODINE CAUSING SHORTNESS OF BREATH, CIPRO CAUSING SHORTNESS OF BREATH, AND HYDROCODONE CAUSING HYPOTENSION. Medications: List reviewed. Review of Systems: Constitutional: As mentioned above. Respiratory: As mentioned above. Cardiovascular: Has swelling of legs. All other systems reviewed and negative. Past Medical History: Significant for peripheral neuropathy, glaucoma, allergic rhinitis, secondary hyperparathyroidism, hypothyroidism, impaired fasting glucose, hypertension, hyperlipidemia, coronary artery disease, chronic atrial fibrillation, lymphedema, osteoarthritis at multiple sites, anxiety, depression, and sleep apnea. The patient has a normal ejection fraction according to last echocardiogram report we have at the office, which was May 15, 2020, her ejection fraction was 66% and had shown diastolic dysfunction. Coronary angiogram on July 21, 2017, had shown 20% plaquing of left main. Past Surgical History: Significant for cornea transplant, cholecystectomy, rectocele repair, hernia repair, hysterectomy, cystocele repair, shoulder surgery, hip surgery, had a fracture of femur involving left femur in January of 2020 and also had left knee fracture and surgery for that in January 2021. Family History: Father , had COPD and coronary artery disease. Mother , had coronary artery disease and hypertension. Sister has diabetes. Social History: Negative for smoking and alcohol use. Physical Examination: Vital Signs: Height 5 feet 3 inches, weight 184 pounds, temperature 97.5, pulse 75, respiratory rate 18, blood pressure 144/69, and oxygen saturation 97%. General: Awake, alert, oriented, not in distress. HEENT: Head atraumatic, normocephalic. Conjunctivae nonerythematous. Sclerae white. Mouth, no thrush or edema noted. Ears/Nose, no mass, lesion, discharge noted. Neck: Supple. No JVD, lymph nodes, bruit, thyromegaly noted. Lungs: Diminished air entry in the lower lung field. Not using any accessory muscles of respiration. Breast Examination: The patient's left breast is 2 to 3 times larger than the right breast and has appearance of soft tissue swelling with indurated skin mostly involving lower half to lower two-third of the left breast. No breast mass or tenderness. Breast exam was done in presence of the patient's nurse at the hospital as well as the patient's in the room. Heart: Normal heart sounds, no murmur or gallop. Abdomen: Soft, bowel sounds normal. No guarding, rigidity, tenderness, mass, hepatosplenomegaly, distention, or bruit noted. Extremities: The patient's left upper extremity has significant edema of left arm and forearm with some pink warm skin in the proximal forearm and distal arm. Bilateral lower extremity has trace to grade 1 pedal edema without any evidence of cellulitis. Skin: No rash, ulcer, cellulitis. Lymphatic System: No lymph node enlargement in neck, supraclavicular, infraclavicular, or in axillary region. Neuro: No focal neurological deficit. Chest: Unremarkable. External Genitalia: Deferred. Rectal: Deferred. Labs: COVID-19 is negative. White count 9.9 today, hemoglobin 13.4, and platelets 226. Sodium 136, potassium 3.4, chloride 102, bicarb 28, BUN 10, creatinine 0.69, and glucose 95. Procalcitonin 39.83. Urinalysis, nitrite positive, leukocyte esterase 1+, wbc 20 to 50 bacteria loaded. Chest x-ray shows small to moderate left-sided pleural effusion and small right-sided pleural effusion. CAT scan of abdomen without contrast shows 7 x 3 cm right pelvic fluid collection and ultrasound of pelvis confirms a 9 cm hematoma in the right pelvis region. In December 2021, approximately 1 month ago, the patient was taken to [facility], from there, she was transferred to [facility] and this pelvic hematoma was detected and diagnosed during that particular admission and that is the reason why the patient was planned to have Watchman procedure since she is not able to take long-term anticoagulation therapy for her atrial fibrillation. Impression: 1. Urinary tract infection. 2. Rule out sepsis. 3. Hypokalemia. 4. Chronic diastolic heart failure with acute exacerbation. 5. Coronary artery disease. 6. Hypertension. 7. Hyperlipidemia. 8. Chronic atrial fibrillation. 9. Anxiety. 10. Depression. 11. Peripheral neuropathy. 12. Hypothyroidism. 13. Impaired fasting glucose. 14. Obstructive sleep apnea. 15. Lymphedema. 16. Cellulitis, left upper extremity. Plan: We will go ahead and admit the patient to hospital for further evaluation and management of this problem. The patient is appropriate for inpatient and is expected to spend 2 midnights in the hospital. Home medications will be continued per order. SCD was ordered for DVT prophylaxis. Empiric antibiotic, ceftriaxone, was started and we will continue that. Follow up on urine culture and blood culture results when it becomes available and then we will decide about culture specific antibiotics. I will go ahead and order echo with Doppler, which will be done tomorrow to look at left ventricular ejection fraction as well as we will go ahead and consult Physical Therapy to help ambulate the patient. The patient's last mammogram was done in October of this year, which was normal. I will go ahead and order a CT scan of the chest without contrast. We will start IV diuretic therapy. Monitor electrolyte. Replace potassium per protocol and we will get proBNP done tomorrow morning. Details and plan of treatment discussed with the patient and the patient's . Her Watchman's procedure was canceled and that will need to be rescheduled at a later date when she is medically stable. RYAN/MODL Voice ID: [id number] ROXANN
[2022-02-24 07:00] LABS: ALT/SGPT 12 U/L (12-78); AST/SGOT 19 U/L (15-37); Albumin 1.4 g/dL (3.4-5.0); Alkaline Phosphatase 94 U/L (45-117); BUN Blood Urea Nitrogen 9 mg/dL (7-18); Bicarbonate 31 mmol/L (21-32); Bilirubin Total 0.3 mg/dL (0.2-1.0); Folic Acid, (Folate) 3.8 ng/mL (3.1-17.5); Glomerular Filtration Rate 90 ml/min (=/>90); Glucose Level 87 mg/dL (74-106); Magnesium 1.7 mg/dL (1.8-2.4); NT PRO-BNP 3077 pg/mL (<450); Potassium 3.3 mmol/L (3.5-5.1); Protein, Total 4.3 g/dL (6.4-8.2); Sodium Level 138 mmol/L (136-145)
[2022-02-24] MEDS ORDERED: MAGNESIUM SULFATE 1 gm IVPB 1 GM/100 ML BAG IV ONE (09:00)
[2022-02-24] MEDS ORDERED: VANCOMYCIN 1 GM in NA CHLORIDE 0.9% 250 ML IVPB SCH (09:00)
[2022-02-24] MEDS ORDERED: POTASSIUM 25 MEQ EFFERV TAB PO ONE ×2 (09:00→23:56)
[2022-02-24] MEDS: APIXABAN 2.5 MG TABLET PO SCH ×2 (09:27→20:14)
--- NOTE | 2022-02-24 10:11 | P.CNS ---
Date of Consult: 02/24/22 Reason for consult: Pelvic hematoma History of present illness: Patient is a 76-year-old female who was admitted through the emergency room with weakness, leukocytosis and UTI. Patient on work-up was found to have a pelvic hematoma. Patient fell in December and went to [facility] this hematoma was diagnosed. The hematoma has not changed significantly since that time and the patient is asymptomatic from that hematoma. Patient was scheduled for a watchman's procedure yesterday, but this was canceled because of the UTI. I was consulted to evaluate this hematoma. Patient is awake and alert with no complaints noted to the abdomen or pelvis at this time. Patient denies nausea, vomiting, diarrhea, constipation, blood in he r stool, hematuria, sore throat, runny nose, cough, headaches, dizziness, chest pain fever or chills. Review of systems: Otherwise unremarkable Past medical history: Peripheral neuropathy, hypothyroidism, hypertension, A. fib, lymphedema Past surgical history: Corneal transplant, cholecystectomy, rectocele, cystocele repair hernia surgery, total abdominal hysterectomy, left knee surgery Allergies: Iodine, Cipro, hydrocodone Social history: Patient does not smoke or drink alcohol Family history: Coronary artery disease, COPD, hypertension, diabetes Vital signs: Stable, afebrile Physical exam: Alert oriented x2 Head and neck exam: No masses Chest: Clear Heart: S1-S2 Abdomen: Soft, nondistended, nontender, positive bowel sounds Extremity: Vascular intact, nontender Neuro: Nonfocal Diagnostic data: CAT scan, ultrasound, laboratory data reviewed--patient has a subacute hematoma which is stable and findings are consistent with UTI Assessment: Pelvic hematoma in a patient with UTI Plan/recommendation: Antibiotics for the UTI per the medical service, no need for any surgical intervention at this time. Please reconsult as needed. Plan of care discussed with Dr. Rubalcava patient and family member. CC: Dr. Rubalcava's office
[2022-02-24] MEDS: FUROSEMIDE 20 MG/ 2ML VIAL IV SCH ×2 (11:09→16:50)
[2022-02-24] MEDS: CEFTRIAXONE 1,000 MG in NA CHLORIDE 0.9% 50 ML IVPB SCH ×2 (11:09→20:16)
[2022-02-24] MEDS: VANCOMYCIN 1.5 GM in NA CHLORIDE 0.9% 500 ML IVPB SCH (11:36)
[2022-02-24] MEDS: TRAZODONE 50 MG TABLET PO SCH (20:14)
--- NOTE | 2022-02-25 02:18 | PN ---
Date of Progress Note: 02/24/2022 Subjective: The patient was seen this morning for followup. No new complaints or problems reported. Lying in bed, not in any distress. Objective: Vital Signs: Reviewed. HEENT: Unremarkable. Lungs: Clear to auscultation except diminished air entry in the lower lung m[place]. Not using any accessory muscles of respiration. Heart: Sounds normal. Abdomen: Soft. Bowel sounds normal. No guarding, rigidity, tenderness, or distention. Extremities: No leg edema. Laboratory Data: White count 6.4, hemoglobin 10.8, platelets 190. Blood culture, preliminary report, gram-positive cocci in cluster. Impression: 1. Urinary tract infection. 2. Sepsis. 3. Cellulitis, left upper extremity. 4. Chronic diastolic heart failure with acute exacerbation. Plan: We will go ahead and follow up on echocardiogram and CAT scan results. Continue ceftriaxone. We will add vancomycin per order and consult Pharmacy for vancomycin dose management. Continue Eliquis as she takes per recommendation from correction worker, which is 2.5 mg 2 times a day. Physical Therapy to work with the patient. I will see her tomorrow for followup. We will repeat blood work tomorrow morning. RYAN/MODL Voice ID: [id number] Report ID: [id number] ROXANN
--- NOTE | 2022-02-25 07:50 | ECHO ---
HEIGHT: 5 ft 3 in WEIGHT: 184 lb 0 oz DATE OF STUDY: 02/24/[address]: Torin Rubalcava MD 2-DIMENSIONAL: YES M.MODE: YES DOPPLER: YES COLOR FLOW: YES TDS: PORTABLE: YES DEFINITY: BUBBLE STUDY: DIAGNOSIS: CONGESTIVE HEART FAILURE CARDIAC HISTORY: CATHERIZATION: SURGERY: PROSTHETIC VALVE: PACEMAKER: MEASUREMENTS (cm) DIASTOLIC (NORMALS) SYSTOLIC (NORMALS) IVSd 1.4 (0.6-1.2) LA Diam 4.2 (1.9-4.0) LVEF 72% LVIDd 3.3 (3.5-5.7) LVIDs 2.0 (2.0-3.5) %FS 40% LVPWd 1.2 (0.6-1.2) Ao Diam 3.4 (2.0-3.7) 2 DIMENSIONAL ASSESSMENT: RIGHT ATRIUM: NORMAL LEFT ATRIUM: ENLARGED RIGHT VENTRICLE: NORMAL LEFT VENTRICLE: NORMAL TRICUSPID VALVE: MILD TRICUSPID REGURGITATION MITRAL VALVE: MILD MITRAL REGURGITATION PULMONIC VALVE: NORMAL AORTIC VALVE: THICKENED WITH MILD AORTIC INSUFFICIECNY PERICARDIAL EFFUSION: NONE AORTIC ROOT: NORMAL LEFT VENTRICULAR WALL MOTION: NORMAL DOPPLER/COLOR FLOW: SEE BELOW COMMENTS: NORMAL LEFT VENTRICULAR EJECTION FRACTION GREATER THAN 60% WITH NORMAL WALL MOTION. MILD MITRAL REGURGITATION. LEFT ATRIAL ENLARGEMENT. MILD AORTIC INSUFFICIENCY WITH THICKENED VALVE. NO AORTIC STENOSIS. MILD TRICUSPID REGURGITATION. TECHNOLOGIST: VICENTE VALENZUELA
[2022-02-25 07:55] LABS: Hematocrit 34.5 % (36.0-45.0); MCV 101.7 fL (80-100); MPV 9.3 fL (7.6-11.3); RBC Red Blood Cell Count 3.39 M/uL (3.86-4.86)
[2022-02-25 07:56] LABS: Absolute Lymphocytes (CBC) 1.2 K/uL (0.7-4.9)
[2022-02-25] MEDS: TRAMADOL HCL 50 MG TAB PO SCH ×3 (08:43→21:20)
[2022-02-25] MEDS: METOPROLOL XL 25 MG TAB PO SCH ×2 (08:44→21:21)
[2022-02-25] MEDS: POTASSIUM CL SA 10 MEQ TAB PO SCH (08:44)
[2022-02-25] MEDS: ESCITALOPRAM 20 MG TAB PO SCH (08:44)
[2022-02-25] MEDS: FUROSEMIDE 20 MG/ 2ML VIAL IV SCH ×2 (08:45→17:09)
[2022-02-25] MEDS: PREGABALIN 75 MG CAP PO SCH (08:45)
[2022-02-25] MEDS: CEFTRIAXONE 1,000 MG in NA CHLORIDE 0.9% 50 ML IVPB SCH ×2 (08:45→21:21)
[2022-02-25] MEDS: APIXABAN 2.5 MG TABLET PO SCH ×2 (08:45→21:21)
[2022-02-25 09:05] LABS: Magnesium 1.7 mg/dL (1.8-2.4); Potassium 4.5 mmol/L (3.5-5.1)
[2022-02-25] MEDS ORDERED: MAGNESIUM SULFATE 1 gm IVPB 1 GM/100 ML BAG IV ONE (09:13)
[2022-02-25] MEDS: VANCOMYCIN 1.5 GM in NA CHLORIDE 0.9% 500 ML IVPB SCH (09:53)
[2022-02-25] MEDS ORDERED: LIDOCAINE 1% MPF 5 ML VIAL ONE (16:43)
--- NOTE | 2022-02-25 19:54 | PN ---
Date of Progress Note: 02/25/2022 Subjective: Patient was seen this morning for followup. She was lying in bed, not in any distress. Denies any complaints. No chest pain. No shortness of breath. Objective: Vital Signs: Reviewed. HEENT: Unremarkable. Lungs: Bilateral good equal air entry, not in respiratory distress. Diminished air entry in the low er lung m[place]. Cardiac: Heart sounds normal. Abdomen: Soft. Bowel sounds normal. No guarding, rigidity, tenderness, distention. Extremities: Trace leg edema, better than before. Left upper extremity edema is better than before. Area of cellulitis from left upper extremity has almost completely resolved. Laboratory Data: Reviewed. Impression: 1.Acute pyelonephritis. 2.Sepsis. 3.Congestive heart failure, chronic, diastolic with acute exacerbation. 4.Cellulitis, left upper extremity. 5.Hypertension. 6.Anemia, unspecified. Plan: We will go ahead and continue current antibiotic, continue IV Lasix. Monitor electrolyte and renal to work with patient. Urine culture grew klebsiella and it is sensitive to ceftriaxone that tino ludwig is currently on. Patient is also on vancomycin for blood culture that has so far grown gram-po sitive cocci. Definite identification and sensitivity result still pending. We will continue this antibiotic until we get the final report back on the blood culture. I will see her tomorrow for followup. RYAN/MODL Voice ID: [id number] Report ID: [id number]
[2022-02-25] MEDS: DULOXETINE 30 MG CAP PO SCH (21:19)
[2022-02-25] MEDS: FERROUS SULFATE 325 MG TAB PO SCH (21:20)
[2022-02-25] MEDS: TRAZODONE 50 MG TABLET PO SCH (21:20)
[2022-02-25] MEDS: RISPERIDONE 0.25 MG TABLET PO SCH (21:20)
[2022-02-25] MEDS: ATORVASTATIN 40 MG TAB PO SCH (21:20)
[2022-02-25] MEDS: LOSARTAN POTASSIUM 50 MG TABLET PO SCH (21:21)
[2022-02-26] MEDS: LEVOTHYROXINE SOD 0.088 MG TAB PO SCH (06:22)
[2022-02-26 07:00] LABS: Magnesium 1.8 mg/dL (1.8-2.4); Potassium 3.6 mmol/L (3.5-5.1)
[2022-02-26] MEDS: VANCOMYCIN 1.5 GM in NA CHLORIDE 0.9% 500 ML IVPB SCH (08:20)
[2022-02-26] MEDS: CEFTRIAXONE 1,000 MG in NA CHLORIDE 0.9% 50 ML IVPB SCH ×2 (08:21→20:00)
[2022-02-26] MEDS: PREGABALIN 75 MG CAP PO SCH (08:22)
[2022-02-26] MEDS: ESCITALOPRAM 20 MG TAB PO SCH ×2 (08:22→08:23)
[2022-02-26] MEDS: POTASSIUM CL SA 10 MEQ TAB PO SCH ×2 (08:22→20:01)
[2022-02-26] MEDS: METOPROLOL XL 25 MG TAB PO SCH ×2 (08:22→20:02)
[2022-02-26] MEDS: APIXABAN 2.5 MG TABLET PO SCH ×2 (08:23→20:02)
[2022-02-26] MEDS: TRAMADOL HCL 50 MG TAB PO SCH ×3 (08:23→20:03)
[2022-02-26] MEDS: FUROSEMIDE 20 MG/ 2ML VIAL IV SCH ×2 (08:24→16:10)
[2022-02-26] MEDS ORDERED: MAGNESIUM SULFATE 1 gm IVPB 1 GM/100 ML BAG IV ONE (09:00)
[2022-02-26] MEDS: MAGNESIUM OXIDE 400 MG TAB PO SCH ×2 (11:52→20:02)
[2022-02-26] MEDS ORDERED: FUROSEMIDE 20 MG/ 2ML VIAL IV ONE (12:00)
[2022-02-26] MEDS: NYSTATIN 100MU/GM CREAM 15GM TOP SCH ×2 (12:13→21:00)
--- NOTE | 2022-02-26 16:49 | PN ---
Date of Progress Note: 02/26/2022 Subjective: The patient was seen this morning for followup. No new complaints or problems reported by the patient. She was sitting in the chair. Her was with her at bedside. She did ambulat e with physical therapy outside her room and after walking care home down the [address], she got tired. She walked less today than yesterday. Denies any shortness of breath while sleeping. She still continu es to have leg swelling and swelling of her left arm and left breast area. No pain. Objective: Vital Signs: Reviewed. HEENT: Examination unremarkable. Lungs: Clear to auscultation except diminished air entry in the left lower lung field. Not using an y accessory muscles of respiration. Cardiac: Heart sounds normal. Abdomen: Soft. Bowel sounds normal. No guarding, rigidity, tenderness, or distention. Extremities: Leg edema present, especially both thighs. Still has significant edema. Breasts: In presence of the patient's , inspection of left breast still shows swelling of the left breast and rash underneath the left breast skin area. Laboratory Data: Sodium 139, potassium 3.6, chloride 101, bicarb 36, BUN 8, creatinine 0.66, glucose 84, magnesium 1.8. Blood culture growing 1 bottle gross coagulase negative Staph. Urine culture growing Klebsiella. Impression: 1.Congestive heart failure, chronic, diastolic, with acute exacerbation. 2.Acute pyelonephritis. 3.Hypertension. 4.Paroxysmal atrial fibrillation. Plan: We will go ahead and continue current Eliquis. We will also continue current antibiotic, whic h is ceftriaxone. We will discontinue vancomycin in view of the results, which is indicating skin co ntamination and not true infection. The patient currently is on Lasix 20 mg IV 2 times a day, and I have increased the dose now to 40 mg 2 times a day. We will increase potassium replacement dose and start on magnesium replacement dose. Continue electrolyte replacement protocol and repeat blood work tomorrow. Echocardiogram finding discussed with the patient and her . Plan is to discharge her to go home once we achieve adequate diuresis. RYAN/MODL Voice ID: [id number] Report ID: [id number]
[2022-02-26] MEDS: TRAZODONE 50 MG TABLET PO SCH (20:01)
[2022-02-26] MEDS: ATORVASTATIN 40 MG TAB PO SCH (20:01)
[2022-02-26] MEDS: DULOXETINE 30 MG CAP PO SCH (20:01)
[2022-02-26] MEDS: RISPERIDONE 0.25 MG TABLET PO SCH (20:01)
[2022-02-26] MEDS: LOSARTAN POTASSIUM 50 MG TABLET PO SCH (20:02)
[2022-02-26] MEDS: FERROUS SULFATE 325 MG TAB PO SCH (20:02)
[2022-02-27 04:39] LABS: Potassium 3.4 mmol/L (3.5-5.1)
[2022-02-27] MEDS: LEVOTHYROXINE SOD 0.088 MG TAB PO SCH (06:25)
[2022-02-27] MEDS ORDERED: VANCOMYCIN 1.75 GM in NA CHLORIDE 0.9% 500 ML IVPB SCH (08:00)
[2022-02-27] MEDS: FUROSEMIDE 20 MG/ 2ML VIAL IV SCH ×2 (08:51→16:12)
[2022-02-27] MEDS: METOPROLOL XL 25 MG TAB PO SCH ×2 (08:52→20:13)
[2022-02-27] MEDS: CEFTRIAXONE 1,000 MG in NA CHLORIDE 0.9% 50 ML IVPB SCH ×2 (08:52→20:16)
[2022-02-27] MEDS: APIXABAN 2.5 MG TABLET PO SCH ×2 (08:52→20:21)
[2022-02-27] MEDS: PREGABALIN 75 MG CAP PO SCH (08:52)
[2022-02-27] MEDS: MAGNESIUM OXIDE 400 MG TAB PO SCH ×2 (08:53→20:14)
[2022-02-27] MEDS: TRAMADOL HCL 50 MG TAB PO SCH ×3 (08:54→20:35)
[2022-02-27] MEDS: POTASSIUM CL SA 10 MEQ TAB PO SCH ×2 (08:54→20:36)
[2022-02-27] MEDS: NYSTATIN 100MU/GM CREAM 15GM TOP SCH ×2 (08:55→20:15)
--- NOTE | 2022-02-27 11:28 | PN ---
Date of Progress Note: 02/27/2022 Subjective: The patient was seen this morning for followup. No new complaints or problems reported by the patient. She was lying in bed. Her was with her at bedside. Objective: Vital Signs: Reviewed. HEENT: Unremarkable. Lungs: Bilateral good equal air entry with diminished air entry in the left lower lung field unchang ed from yesterday. Not using accessory muscles of respiration. Heart: Sounds normal. Abdomen: Soft. Bowel sounds normal. No guarding, rigidity, tenderness, distention. Extremities: Bilateral leg edema unchanged from yesterday. Laboratory Data: Sodium 139, potassium 3.4, chloride 97, bicarb 39, BUN 8, creatinine 0.75, glucose 85, magnesium 2. Impression: 1.Congestive heart failure, chronic, diastolic, with acute exacerbation. 2.Urinary tract infection. 3.Hypertension. 4.Hyperlipidemia. 5.Paroxysmal atrial fibrillation. Plan: We will go ahead and continue current medications. Continue current Eliquis 2.5 mg 2 times a day for atrial fibrillation problem. We will continue metoprolol at current dose. Lasix 40 mg IV 2 times a day will be continued with monitored daily weight. Replace potassium per protocol and I will see her tomorrow for followup. Continue current antibiotics. RYAN/MODL Voice ID: [id number] Report ID: [id number]
[2022-02-27] MEDS ORDERED: CEFTRIAXONE 1000 MG/VIAL ONE (19:58)
[2022-02-27] MEDS: FERROUS SULFATE 325 MG TAB PO SCH (20:11)
[2022-02-27] MEDS: TRAZODONE 50 MG TABLET PO SCH (20:11)
[2022-02-27] MEDS: ATORVASTATIN 40 MG TAB PO SCH (20:12)
[2022-02-27] MEDS: DULOXETINE 30 MG CAP PO SCH (20:12)
[2022-02-27] MEDS: LOSARTAN POTASSIUM 50 MG TABLET PO SCH (20:13)
[2022-02-27] MEDS: RISPERIDONE 0.25 MG TABLET PO SCH (20:15)
[2022-02-28] MEDS: LEVOTHYROXINE SOD 0.088 MG TAB PO SCH (05:32)
[2022-02-28] MEDS: CEFTRIAXONE 1,000 MG in NA CHLORIDE 0.9% 50 ML IVPB SCH ×2 (07:56→21:58)
[2022-02-28] MEDS: PREGABALIN 75 MG CAP PO SCH (07:56)
[2022-02-28] MEDS: FUROSEMIDE 40 MG/4 ML VIAL IV SCH ×2 (07:56→16:04)
[2022-02-28] MEDS: POTASSIUM CL SA 10 MEQ TAB PO SCH ×2 (07:56→22:01)
[2022-02-28] MEDS: APIXABAN 2.5 MG TABLET PO SCH ×2 (07:56→22:00)
[2022-02-28] MEDS: METOPROLOL XL 25 MG TAB PO SCH ×2 (07:57→22:00)
[2022-02-28] MEDS: MAGNESIUM OXIDE 400 MG TAB PO SCH ×2 (07:57→21:59)
[2022-02-28] MEDS: ESCITALOPRAM 20 MG TAB PO SCH (07:57)
[2022-02-28] MEDS: TRAMADOL HCL 50 MG TAB PO SCH ×3 (07:58→22:00)
[2022-02-28] MEDS: NYSTATIN 100MU/GM CREAM 15GM TOP SCH ×2 (07:58→22:01)
[2022-02-28] MEDS ORDERED: VANCOMYCIN 1.5 GM in NA CHLORIDE 0.9% 500 ML IVPB SCH (08:00)
[2022-02-28] MEDS: LOSARTAN POTASSIUM 50 MG TABLET PO SCH (21:59)
[2022-02-28] MEDS: DULOXETINE 30 MG CAP PO SCH (21:59)
[2022-02-28] MEDS: TRAZODONE 50 MG TABLET PO SCH (21:59)
[2022-02-28] MEDS: FERROUS SULFATE 325 MG TAB PO SCH (22:01)
[2022-02-28] MEDS: RISPERIDONE 0.25 MG TABLET PO SCH (22:01)
[2022-02-28] MEDS: ATORVASTATIN 40 MG TAB PO SCH (22:01)
[2022-03-01] MEDS: FUROSEMIDE 40 MG/4 ML VIAL IV SCH (00:41)
[2022-03-01] MEDS: ACETAMINOPHEN 500 MG TAB PO PRN (04:44)
[2022-03-01] MEDS: LEVOTHYROXINE SOD 0.088 MG TAB PO SCH (04:46)
[2022-03-01 05:01] LABS: Absolute Lymphocytes (CBC) 1.7 K/uL (0.7-4.9); Hematocrit 31.9 % (36.0-45.0); Lymphocytes % 27.3 % (15.3-44.8); MCV 99.9 fL (80-100); MPV 8.8 fL (7.6-11.3); RBC Red Blood Cell Count 3.19 M/uL (3.86-4.86)
[2022-03-01 05:11] LABS: Potassium 3.8 mmol/L (3.5-5.1)
[2022-03-01] MEDS ORDERED: FUROSEMIDE 40 MG TABLET PO SCH (09:00)
[2022-03-01] MEDS: METOPROLOL XL 25 MG TAB PO SCH (09:00)
--- NOTE | 2022-03-01 09:47 | PN ---
Date of Progress Note: 02/28/2022 Subjective: The patient was seen this morning for followup. She was lying in bed, not in distress. Denies any shortness of breath. No nausea. No vomiting. Objective: Vital Signs: Reviewed. HEENT: Unremarkable. Lungs: Bilateral good equal air entry. Clear to auscultation except diminished air entry in the lef t basal region. Not using any accessory muscles of respiration. Heart: Sounds normal. Abdomen: Soft. Bowel sounds normal. No guarding, rigidity, tenderness, distention. Extremities: Bilateral leg edema present, but better than before. Laboratory Data: Reviewed. Impression: 1.Congestive heart failure, chronic, diastolic, with acute exacerbation. 2.Paroxysmal atrial fibrillation. 3.Hypertension. 4.Hypokalemia. 5.Urinary tract infection. Plan: We will go ahead and continue current medications. Continue Lasix, but increase dose from 40 mg IV q.12 hours to q.8 hours. Repeat blood work tomorrow morning. Replace potassium per protocol. Continue Eliquis and other current medications and Physical Therapy to continue to work with the patient. We will repeat blood work tomorrow morning. Possible discharge t omorrow depending on her condition. RYAN/MODL Voice ID: [id number] Report ID: [id number]
[2022-03-01] MEDS: APIXABAN 2.5 MG TABLET PO SCH (09:51)
[2022-03-01] MEDS: TRAMADOL HCL 50 MG TAB PO SCH (09:51)
[2022-03-01] MEDS: ESCITALOPRAM 20 MG TAB PO SCH (09:51)
[2022-03-01] MEDS: PREGABALIN 75 MG CAP PO SCH (09:51)
[2022-03-01] MEDS: POTASSIUM CL SA 10 MEQ TAB PO SCH (09:52)
[2022-03-01] MEDS: CEFTRIAXONE 1,000 MG in NA CHLORIDE 0.9% 50 ML IVPB SCH (09:53)
[2022-03-01] MEDS: NYSTATIN 100MU/GM CREAM 15GM TOP SCH (09:54)
[2022-03-01] MEDS: MAGNESIUM OXIDE 400 MG TAB PO SCH (09:54)
[2022-03-01 12:18] VITALS: BP 105/67; TEMP 98.5
[2022-03-01 14:17] VITALS: O2SAT 97
--- NOTE | 2022-03-03 04:20 | DS ---
Date of Discharge: 03/01/2022 Disposition: Discharged to go home. Physical Examination: HEENT: Unremarkable. Lungs: Clear to auscultation. Heart: Sounds normal. Abdomen: Soft. Bowel sounds normal. No guarding, rigidity, tenderness, or distention. Extremities: Bilateral leg edema present, but significantly better than before, mostly involving upp er lateral thigh. Laboratory Data: Upon admission on 02/23/2022, white count 9.9, hemoglobin 13.4, platelets 226. Tod ay, white count 6.1, hemoglobin 11, platelets 204. Last chemistry today, sodium 136, potassium 3.8, chloride 92, bicarb 43, BUN 8, creatinine 0.82, glucose 91, magnesium 2. Potassium was 3.3 on 2021. Magnesium was low at 1.7 on 02/25/2022. Upon admission, TSH 5.7. Procalcitonin 39.8. Sodium 136, potassium 3.4, chloride 102, bicarb 28, BUN 10, creatinine 0.69, glucose 95. Liver function te sts were unremarkable. Blood culture remained negative. Urine culture grew Klebsiella. Hospital Course: This is a 76-year-old pleasant female patient, admitted to the hospital with wide c omplaints of not feeling good and abnormal blood test results. Please see dictated H and P for more information. Her outpatient WBC count was 14.8, but this week complained of not feeling good, so she was admitted to the hospital as we were concerned about possibility of some underlying infection. U giles admission to hospital, her urine test showed abnormality consistent with urinary tract infection, but she does not have any typical signs or symptoms of urinary tract infection. Her COVID-19 test c leonel back negative. After she was admitted to the hospital, she was started on IV antibiotic, which w as ceftriaxone and she was started on IV Lasix 20 mg q.12 hours, which was subsequently increased to 40 mg IV q.12 hours and then one more time, we increase the dose to 40 mg IV q.8 hours. We have achi eved adequate diuresis. Overall, she started to feel better. [facility] and chest x-ray both have shown some pleural effusion. E chocardiogram shows normal ejection fraction. The patient also had cellulitis of left upper extremit y along with swelling of left upper extremity and cellulitis problem has resolved and swelling from l eft upper extremity has significantly improved during this hospitalization to the extent that it is a lmost back to normal by the time of discharge. Today, the patient was discharged to go back home in stable condition with following discharge medication and instructions. Final Diagnoses: 1.Urinary tract infection. 2.Chronic diastolic heart failure, with acute exacerbation. 3.Hypokalemia. 4.Hypomagnesemia. 5.Anemia, unspecified. 6.Chronic atrial fibrillation. 7.Chronic anticoagulation therapy. 8.Coronary artery disease. 9.Hypertension. 10.Hyperlipidemia. 11.Anxiety. 12.Depression. 13.Peripheral neuropathy. 14.Hypothyroidism. 15.Impaired fasting glucose. 16.Obstructive sleep apnea. 17.Lymphedema, legs. 18.Cellulitis, left upper extremity. Discharge Medications And Instructions: 1.Continue all prior home medications. 2.Take following new medications and prescriptions will be sent to your pharmacy from my office. a.Furosemide 40 mg, take 1 tablet by mouth 2 times a day. b.Potassium chloride 10 mEq, take 1 tablet by mouth 2 times a day. c.Augmentin 875 mg, take 1 tablet by mouth 2 times a day with food for 5 days. 3.Follow up at my office next week and call office for appointment. RYAN/MODL Voice ID: [id number] Report ID: [id number]
== END 2022-03-01 12:35 | disposition home or self-care (01) | DRG 689 ==
LOC: ER 08:31 → ERHOLD 13:52 → 2ND 16:24
PROVIDERS: ADMIT Internal Medicine; ATTEND Internal Medicine
DX: N39.0 Urinary tract infection, site not specified (principal); I50.33 Acute on chronic diastolic (congestive) heart failure; L03.114 Cellulitis of left upper limb; B96.1 Klebsiella pneumoniae [K. pneumoniae] as the cause of diseases classified elsewhere; I11.0 Hypertensive heart disease with heart failure; I48.0 Paroxysmal atrial fibrillation; E87.6 Hypokalemia; D64.9 Anemia, unspecified; E83.42 Hypomagnesemia; I25.10 Atherosclerotic heart disease of native coronary artery without angina pectoris; F41.9 Anxiety disorder, unspecified; S37 Injury of urinary and pelvic organs; F32.A Depression, unspecified; G62.9 Polyneuropathy, unspecified; E03.9 Hypothyroidism, unspecified; G47.33 Obstructive sleep apnea (adult) (pediatric); I89.0 Lymphedema, not elsewhere classified; Z79.01 Long term (current) use of anticoagulants; Z20.822 Contact with and (suspected) exposure to COVID-19; Z94.7 Corneal transplant status
CPT/HCPCS: 36415; 71045; 71250; 74176; 76856; 80048; 80053; 80202; 81003; 81015; 82607; 82746; 83735; 83880; 84132; 84145; 84439; 84443; 85025; 85610; 85730; 87040; 87077; 87086; 87088; 87186; 87205; 87804; 93306; 96374; 97116; 97161; 97530; 99285; J1940; J3370; J3475; J7040; U0003